=== PATIENT | female | born 1995 | race Caucasian/White ===

== ENCOUNTER 2017-03-26 17:18 | Emergency (ER) | payer MEDICAID ==
[2017-03-26 17:51] VITALS: BP 110/69
--- NOTE | 2017-03-26 17:58 | EDM.PDOC ---
<BridgesWander de la cruz M - Last Filed: 03/26/17 17:53> ED HPI GENERAL MEDICAL PROBLEM - General Chief Complaint: Chest Pain Stated Complaint: CHEST PAINS, [id number] Time Seen by Provider: 03/26/17 17:53 Source of Information: Reports: Patient History Limitations: Reports: No Limitations - History of Present Illness INITIAL COMMENTS - FREE TEXT/NARRATIVE: This 22 yo female patient reports to the ED with a 12 hour history of chest pain. The patient reports her pain started at about 0530 this morning and has continued all day. The patient reports she took some antacid medication and some Tylenol with no symptom relief. The patient reports her pain gets worse with deep breathing. The patient has not been seen in the clinic and has not had similar symptoms previously. The patient reports she did go to work at [employer] all day prior to coming to the ED. 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: Reports: Acetaminophen, Other Medication(s) Middle Chest Pain Score (Numeric/FACES): 5 - Related Data Allergies Allergy/AdvReac Type Severity Reaction Status Date / Time cats Allergy Hives Uncoded 03/26/17 17:34 harvest molds Allergy Cannot Uncoded 03/26/17 17:34 Remember seasonal Allergy Difficulty Uncoded 03/26/17 17:34 Breathing Home Meds: Home Meds Acetaminophen [Tylenol Extra Strength] 1,000 mg PO ASDIRECTED PRN 03/26/17 [ History] Albuterol [IJD: Ventolin HFA] 2 puff INH ASDIRECTED PRN 03/26/17 [History] Ipratropium/Albuterol Sulfate [Iprat-Albut 0.5-3(2.5) mg/3 ml] 3 ml NEB ASDIRECTED PRN 03/26/17 [History] Levothyroxine Sodium 300 mcg PO DAILY 03/26/17 [History] QUEtiapine Fumarate [Seroquel] 50 mg PO DAILY 03/26/17 [History] Sertraline HCl [Sertraline HCl] 150 mg PO DAILY 03/26/17 [History] traZODone 50 mg PO BEDTIME 03/26/17 [History] Past Medical History HEENT History: Reports: None Cardiovascular History: Reports: None Respiratory History: Reports: Asthma Gastrointestinal History: Reports: None Genitourinary History: Reports: None 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 Musculoskeletal History: Reports: None Neurological History: Reports: None Psychiatric History: Reports: Anxiety, Depression, Learning Disability Endocrine/Metabolic History: Reports: None Hematologic History: Reports: None Immunologic History: Reports: None Oncologic (Cancer) History: Reports: None Dermatologic History: Reports: None - Infectious Disease History Infectious Disease History: Reports: Chicken Pox - Past Surgical History Head Surgeries/Procedures: Reports: None Female Surgical History: Reports: None Social & Family History - Tobacco Use Smoking Status *Q: Current Every Day Smoker Years of Tobacco use: 1 Packs/Tins Daily: 0.5 Second Hand Smoke Exposure: No - Caffeine Use Caffeine Use: Reports: None - Recreational Drug Use Recreational Drug Use: No ED ROS GENERAL - Review of Systems Review Of Systems: ROS reveals no pertinent complaints other than HPI. ED EXAM, GENERAL - Physical Exam Exam: See Below Exam Limited By: No Limitations General Appearance: Alert, WD/WN, Mild Distress, Obese (morbid obesity) Eye Exam: Bilateral Eye: EOMI, Normal Inspection, PERRL Ears: Normal External Exam, Normal Canal, Hearing Grossly Normal, Normal TMs Nose: Normal Inspection, Normal Mucosa, No Blood Throat/Mouth: Normal Inspection, Normal Lips, Normal Teeth, Normal Gums, Normal Oropharynx, Normal Voice, No Airway Compromise Head: Atraumatic, Normocephalic Neck: Normal Inspection, Supple, Non-Tender, Full Range of Motion Respiratory/Chest: No Respiratory Distress, Lungs Clear, Normal Breath Sounds, No Accessory Muscle Use, Other (sternal chest pain) Cardiovascular: Normal Peripheral Pulses, Regular Rate, Rhythm, No Edema, No Gallop, No JVD, No Murmur, No Rub GI/Abdominal: Normal Bowel Sounds, Soft, Non-Tender, No Organomegaly, No Distention, No Abnormal Bruit, No Mass, Other (morbid obesity) (Female) Exam: Deferred Rectal (Female) Exam: Deferred Back Exam: Normal Inspection, Full Range of Motion, NT Extremities: Normal Inspection, Normal Range of Motion, Non-Tender, Normal Capillary Refill, No Pedal Edema Neurological: Alert, Oriented, CN II-XII Intact, Normal Cognition, Normal Gait, Normal Reflexes, No Motor/Sensory Deficits Psychiatric: Normal Affect, Normal Mood Skin Exam: Warm, Dry, Intact, Normal Color, No Rash Lymphatic: No Adenopathy Course - Vital Signs Last Recorded V/S: Last Vital Signs Temp 35.7 C 03/26/17 17:27 Pulse 198 H 03/26/17 17:50 Resp 16 03/26/17 17:50 BP 110/69 03/26/17 17:50 Pulse Ox 99 03/26/17 17:50 - Orders/Labs/Meds Orders: Active Orders 24 hr Category Date Time Status EKG Documentation Completion [RC] URGENT Care 03/26/17 17:52 Active Chest 1V Frontal [CR] Urgent Exams 03/26/17 17:53 Taken Labs: Laboratory Tests 03/26/17 03/26/17 Range/Units 18:00 18:00 WBC 10.1 H (5.0-10.0) 10^3/uL RBC 4.82 (4.2-5.4) 10^6/uL Hgb 9.0 L (12.0-16.0) g/dL Hct 31.4 L (37.0-47.0) % MCV 65.1 L (80-100) fL MCH 18.7 L (27.0-34.0) pg MCHC 28.7 L (33.0-35.0) g/dL Plt Count 395 (150-450) 10^3/uL Neut % (Auto) 71.0 (42.2-75.2) % Lymph % (Auto) 16.6 L (20.5-50.1) % Pope % (Auto) 8.3 H (2-8) % Eos % (Auto) 3.7 H (1.0-3.0) % Baso % (Auto) 0.4 (0.0-1.0) % Sodium 141 (135-145) mmol/L Potassium 3.6 (3.6-5.0) mmol/L Chloride 106 (101-111) mmol/L Carbon Dioxide 24.0 (21.0-31.0) mmol/L Anion Gap 14.6 BUN 14 (7-18) mg/dL Creatinine 0.9 (0.6-1.3) mg/dL Est Cr Clr Drug Dosing 89.72 mL/min Estimated GFR (MDRD) > 60 BUN/Creatinine Ratio 15.55 Glucose 106 H (74-105) mg/dL Calcium 8.8 (8.4-10.2) mg/dl Total Bilirubin 0.5 (0.2-1.0) mg/dL AST 17 (10-42) IU/L ALT 19 (10-60) IU/L Alkaline Phosphatase 93 (42-121) IU/L Troponin I < 0.02 (0.00-0.02) ng/ml Total Protein 7.6 (6.7-8.2) g/dl Albumin 3.8 (3.2-5.5) g/dl Globulin 3.8 Albumin/Globulin Ratio 1.00 Meds: Medications Discontinued Medications Generic Name Dose Route Start Last Admin Trade Name Freq PRN Reason Stop Dose Admin Al Hydroxide/Mg Hydroxide 30 ml 03/26/17 18:41 03/26/17 18:49 Gi Cocktail PO 03/26/17 18:42 30 ml ONETIME ONE Administration Departure - Departure Disposition: Home, Self-Care 01 Clinical Impression: Gastroesophageal reflux disease Qualifiers: Esophagitis presence: with esophagitis Qualified Code(s): K21.0 - Gastro- esophageal reflux disease with esophagitis Instructions: Food Choices for Gastroesophageal Reflux Disease, Adult Forms: ED Department Discharge Additional Instructions: 1) avoid spicy foods 2) follow up at clinic or recheck as needed rx given; zantac 150mg bid x 20 <Leeroy Allred - Last Filed: 03/26/17 19:07> Course - Re-Assessments/Exams Free Text/Narrative Re-Assessment/Exam: 03/26/17 19:06 re-exam; s/p GI cocktail=much better Departure - Departure Time of Disposition: 19:06 Condition: Good
[2017-03-26 18:23] LABS: CHLORIDE,CL 106 mmol/L (101-111); SODIUM,NA 141 mmol/L (135-145)
[2017-03-26] MEDS ORDERED: GI Cocktail Oral Solution 30 ML PO ONE (18:41)
--- NOTE | 2017-04-17 11:27 | EKG ---
03/26/2017 - HERMES WANG I reviewed the EKG and agree with the machine's reading. [facility] /[id number]
== END 2017-03-26 19:13 | disposition home or self-care (01) ==
LOC: DL.ED 17:18
DX: K21.0 Gastro-esophageal reflux disease with esophagitis (principal); F17.210 Nicotine dependence, cigarettes, uncomplicated; J45.909 Unspecified asthma, uncomplicated; Z79.899 Other long term (current) drug therapy
CPT/HCPCS: 36415; 71010; 80053; 84484; 85025; 93005; 99285; A9270

== ENCOUNTER 2017-04-16 13:39 | Emergency (ER) | payer MEDICAID ==
[2017-04-16] MEDS ORDERED: Sodium Chloride 0.9% 10 ML Syringe FLUSH PRN (14:24)
--- NOTE | 2017-04-16 14:24 | EDM.PDOC ---
ED HPI GENERAL MEDICAL PROBLEM - General Chief Complaint: General Stated Complaint: BY AMBULANCE Time Seen by Provider: 04/16/17 14:22 Source of Information: Reports: Patient History Limitations: Reports: No Limitations - History of Present Illness INITIAL COMMENTS - FREE TEXT/NARRATIVE: 22 yo female who presents c/o dizziness for the past 48 hours. States that she has been having nausea as well. No other complaints currently. Onset Date: 04/15/17 Duration: Constant Improves with: Reports: Immobilization Worsens with: Reports: Movement Associated Symptoms: Reports: Headaches, Nausea/Vomiting - Related Data Allergies Allergy/AdvReac Type Severity Reaction Status Date / Time cats Allergy Hives Uncoded 04/16/17 13:56 harvest molds Allergy Cannot Uncoded 04/16/17 13:56 Remember seasonal Allergy Difficulty Uncoded 04/16/17 13:56 Breathing Home Meds: Home Meds Acetaminophen [Tylenol Extra Strength] 1,000 mg PO ASDIRECTED PRN 03/26/17 [ History] Albuterol [IJD: Ventolin HFA] 2 puff INH ASDIRECTED PRN 03/26/17 [History] Ipratropium/Albuterol Sulfate [Iprat-Albut 0.5-3(2.5) mg/3 ml] 3 ml NEB ASDIRECTED PRN 03/26/17 [History] Levothyroxine Sodium 300 mcg PO DAILY 03/26/17 [History] QUEtiapine Fumarate [Seroquel] 50 mg PO DAILY 03/26/17 [History] Sertraline HCl [Sertraline HCl] 150 mg PO DAILY 03/26/17 [History] traZODone 50 mg PO BEDTIME 03/26/17 [History] Past Medical History HEENT History: Reports: None Cardiovascular History: Reports: None Respiratory History: Reports: Asthma Gastrointestinal History: Reports: GERD Genitourinary History: Reports: None 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 Musculoskeletal History: Reports: None Neurological History: Reports: None Psychiatric History: Reports: Anxiety, Depression, Learning Disability Endocrine/Metabolic History: Reports: None Hematologic History: Reports: None Immunologic History: Reports: None Oncologic (Cancer) History: Reports: None Dermatologic History: Reports: None - Infectious Disease History Infectious Disease History: Reports: Chicken Pox - Past Surgical History Head Surgeries/Procedures: Reports: None Female Surgical History: Reports: None Social & Family History - Tobacco Use Smoking Status *Q: Current Every Day Smoker Years of Tobacco use: 1 Packs/Tins Daily: 0.5 Second Hand Smoke Exposure: No - Caffeine Use Caffeine Use: Reports: Coffee - Recreational Drug Use Recreational Drug Use: No ED ROS GENERAL - Review of Systems Review Of Systems: ROS reveals no pertinent complaints other than HPI. ED EXAM, GENERAL - Physical Exam Exam: See Below Exam Limited By: No Limitations General Appearance: Alert, WD/WN, No Apparent Distress Eye Exam: Bilateral Eye: PERRL Ears: Normal External Exam, Normal Canal, Hearing Grossly Normal, Normal TMs Ear Exam: Bilateral Ear: Auricle Normal, Canal Normal, TM normal Head: Atraumatic, Normocephalic Neck: Normal Inspection, Supple, Non-Tender, Full Range of Motion Respiratory/Chest: No Respiratory Distress, Lungs Clear, Normal Breath Sounds, No Accessory Muscle Use, Chest Non-Tender Cardiovascular: Normal Peripheral Pulses, Regular Rate, Rhythm, No Edema, No Gallop, No JVD, No Murmur, No Rub GI/Abdominal: Normal Bowel Sounds, Soft, Non-Tender, No Organomegaly, No Distention, No Abnormal Bruit, No Mass Extremities: Normal Inspection, Normal Range of Motion, Non-Tender, Normal Capillary Refill, No Pedal Edema Neurological: Alert, Oriented, CN II-XII Intact, Normal Cognition, Normal Gait, Normal Reflexes, No Motor/Sensory Deficits Skin Exam: Warm, Dry, Intact, Normal Color, No Rash Course - Vital Signs Last Recorded V/S: Last Vital Signs Temp 96.4 F 04/16/17 13:50 Pulse 73 04/16/17 16:37 Resp 16 04/16/17 16:37 BP 102/52 L 04/16/17 16:37 Pulse Ox 95 04/16/17 16:37 - Orders/Labs/Meds Orders: Active Orders 24 hr Category Date Time Status EKG Documentation Completion [RC] STAT Care 04/16/17 14:26 Active Sodium Chloride 0.9% [Saline Flush] Med 04/16/17 14:24 Active 10 ml FLUSH ASDIRECTED PRN Saline Lock Insert [OM.PC] Stat Oth 04/16/17 14:24 Ordered Medication Orders Sodium Chloride (Saline Flush) 10 ml FLUSH ASDIRECTED PRN PRN Reason: Keep Vein Open Last Admin: 04/16/17 14:50 Dose: 10 ml Labs: Laboratory Tests 04/16/17 04/16/17 04/16/17 Range/Units 14:39 14:39 14:39 WBC 11.2 H (5.0-10.0) 10^3/uL RBC 5.22 (4.2-5.4) 10^6/uL Hgb 9.7 L (12.0-16.0) g/dL Hct 33.3 L (37.0-47.0) % MCV 63.8 L (80-100) fL MCH 18.6 L (27.0-34.0) pg MCHC 29.1 L (33.0-35.0) g/dL Plt Count 419 (150-450) 10^3/uL Neut % (Auto) 62.6 (42.2-75.2) % Lymph % (Auto) 15.4 L (20.5-50.1) % Payne % (Auto) 8.0 (2-8) % Eos % (Auto) 13.2 H (1.0-3.0) % Baso % (Auto) 0.8 (0.0-1.0) % Sodium 140 (135-145) mmol/L Potassium 3.9 (3.6-5.0) mmol/L Chloride 106 (101-111) mmol/L Carbon Dioxide 23.0 (21.0-31.0) mmol/L Anion Gap 14.9 BUN 14 (7-18) mg/dL Creatinine 0.7 (0.6-1.3) mg/dL Est Cr Clr Drug Dosing 115.36 mL/min Estimated GFR (MDRD) > 60 Glucose 96 (74-105) mg/dL Calcium 9.0 (8.4-10.2) mg/dl TSH, Ultra Sensitive 9.19 H (0.35-7.0) uIu/mL Urine Color (YELLOW) Urine Appearance (CLEAR) Urine pH (5.0-9.0) Ur Specific [place] (1.005-1.030) Urine Protein (NEGATIVE) Urine Glucose (UA) (NEGATIVE) Urine Ketones (NEGATIVE) Urine Occult Blood (NEGATIVE) Urine Nitrite (NEGATIVE) Urine Bilirubin (NEGATIVE) Urine Urobilinogen (0.2-1.0) mg/dL Ur Leukocyte Esterase (NEGATIVE) Urine RBC /HPF Urine WBC (0-5/HPF) /HPF Ur Epithelial Cells /HPF Urine Bacteria (0-FEW/HPF) /HPF Urine Mucus /LPF Urine HCG, Qual 04/16/17 04/16/17 Range/Units 15:58 15:58 WBC (5.0-10.0) 10^3/uL RBC (4.2-5.4) 10^6/uL Hgb (12.0-16.0) g/dL Hct (37.0-47.0) % MCV (80-100) fL MCH (27.0-34.0) pg MCHC (33.0-35.0) g/dL Plt Count (150-450) 10^3/uL Neut % (Auto) (42.2-75.2) % Lymph % (Auto) (20.5-50.1) % Payne % (Auto) (2-8) % Eos % (Auto) (1.0-3.0) % Baso % (Auto) (0.0-1.0) % Sodium (135-145) mmol/L Potassium (3.6-5.0) mmol/L Chloride (101-111) mmol/L Carbon Dioxide (21.0-31.0) mmol/L Anion Gap BUN (7-18) mg/dL Creatinine (0.6-1.3) mg/dL Est Cr Clr Drug Dosing mL/min Estimated GFR (MDRD) Glucose (74-105) mg/dL Calcium (8.4-10.2) mg/dl TSH, Ultra Sensitive (0.35-7.0) uIu/mL Urine Color Yellow (YELLOW) Urine Appearance Slightly cloudy (CLEAR) Urine pH 6.0 (5.0-9.0) Ur Specific [place] >= 1.030 (1.005-1.030) Urine Protein Trace H (NEGATIVE) Urine Glucose (UA) Negative (NEGATIVE) Urine Ketones Negative (NEGATIVE) Urine Occult Blood Trace-lysed H (NEGATIVE) Urine Nitrite Negative (NEGATIVE) Urine Bilirubin Negative (NEGATIVE) Urine Urobilinogen 0.2 (0.2-1.0) mg/dL Ur Leukocyte Esterase Negative (NEGATIVE) Urine RBC 0-5 /HPF Urine WBC 0-5 (0-5/HPF) /HPF Ur Epithelial Cells Many H /HPF Urine Bacteria Few (0-FEW/HPF) /HPF Urine Mucus Moderate H /LPF Urine HCG, Qual Negative Meds: Medications Generic Name Dose Route Start Last Admin Trade Name Freq PRN Reason Stop Dose Admin Sodium Chloride 10 ml 04/16/17 14:24 04/16/17 14:50 Saline Flush FLUSH 10 ml ASDIRECTED PRN Administration Keep Vein Open Discontinued Medications Generic Name Dose Route Start Last Admin Trade Name [place] PRN Reason Stop Dose Admin Sodium Chloride 1,000 mls @ 999 mls/hr 04/16/17 14:29 04/16/17 14:51 Normal Saline IV 04/16/17 15:29 999 mls/hr .BOLUS ONE Administration Meclizine HCl 12.5 mg 04/16/17 14:29 04/16/17 14:50 Antivert PO 04/16/17 14:30 12.5 mg ONETIME ONE Administration - Re-Assessments/Exams Free Text/Narrative Re-Assessment/Exam: 04/16/17 16:44 pt states that she feels better. Will dc home Departure - Departure Time of Disposition: 16:45 Disposition: DC[facility] 05 Condition: Good Clinical Impression: Vertigo - Discharge Information Instructions: Vertigo Forms: ED Department Discharge Additional Instructions: Return for any worsening symptoms. - My Orders Last 24 Hours: My Active Orders 04/16/17 14:24 Sodium Chloride 0.9% [Saline Flush] 10 ml FLUSH ASDIRECTED PRN Saline Lock Insert [OM.PC] Stat 04/16/17 14:26 EKG Documentation Completion [RC] STAT - Assessment/Plan Last 24 Hours: My Active Orders 04/16/17 14:24 Sodium Chloride 0.9% [Saline Flush] 10 ml FLUSH ASDIRECTED PRN Saline Lock Insert [OM.PC] Stat 04/16/17 14:26 EKG Documentation Completion [RC] STAT
[2017-04-16] MEDS ORDERED: Sodium Chloride 0.9% 1,000 ML IV ONE (14:29)
[2017-04-16] MEDS ORDERED: Meclizine 12.5 MG Tab PO ONE (14:29)
[2017-04-16 15:09] LABS: CHLORIDE,CL 106 mmol/L (101-111); SODIUM,NA 140 mmol/L (135-145)
[2017-04-16 16:38] VITALS: BP 102/52
--- NOTE | 2017-04-17 17:57 | EKG ---
04/16/2017 - HERMES WANG I reviewed the EKG and agree with the machine's reading. [facility] /[id number]
== END 2017-04-16 16:55 | disposition home or self-care (01) ==
LOC: DL.ED 13:39
DX: R42 Dizziness and giddiness (principal); J45.909 Unspecified asthma, uncomplicated; F17.210 Nicotine dependence, cigarettes, uncomplicated; K21.9 Gastro-esophageal reflux disease without esophagitis; F41.9 Anxiety disorder, unspecified; F32.9 Major depressive disorder, single episode, unspecified; Z79.899 Other long term (current) drug therapy; Z91.09 Other allergy status, other than to drugs and biological substances
CPT/HCPCS: 36415; 80048; 81001; 81025; 84443; 85025; 93005; 96360; 99284; A9270; J7030; J7050

== ENCOUNTER 2017-05-24 02:09 | Emergency (ER) | payer MEDICAID ==
[2017-05-24] MEDS ORDERED: Albuterol/Ipratropium 3.0-0.5 MG/3 ML Neb Soln NEB ONE (02:22)
[2017-05-24] MEDS ORDERED: methylPREDNISolone Sodium Succinate 125 MG/2 ML SDV IM ONE (02:23)
[2017-05-24] MEDS ORDERED: Codeine/Promethazine 10-6.25 MG/5 ML Syrup 5 ML UD Cup PO ONE (02:30)
--- NOTE | 2017-05-24 02:35 | EDM.PDOC ---
ED HPI GENERAL MEDICAL PROBLEM - General Chief Complaint: Respiratory Problem Stated Complaint: COUGH Time Seen by Provider: 05/24/17 02:31 Source of Information: Reports: Patient History Limitations: Reports: No Limitations - History of Present Illness INITIAL COMMENTS - FREE TEXT/NARRATIVE: 2 weeks h/o worsening cough gives h/o asthma uses nebs at home but not working, been coughing till almost vomits. Chest Pain Score (Numeric/FACES): 3 - Related Data Allergies Allergy/AdvReac Type Severity Reaction Status Date / Time latex Allergy Hives Verified 05/24/17 02:18 cats Allergy Hives Uncoded 05/24/17 02:18 harvest molds Allergy Cannot Uncoded 05/24/17 02:18 Remember seasonal Allergy Difficulty Uncoded 05/24/17 02:18 Breathing Home Meds: Home Meds Acetaminophen [Tylenol Extra Strength] 1,000 mg PO ASDIRECTED PRN 03/26/17 [ History] Albuterol [IJD: Ventolin HFA] 2 puff INH ASDIRECTED PRN 03/26/17 [History] Ipratropium/Albuterol Sulfate [Iprat-Albut 0.5-3(2.5) mg/3 ml] 3 ml NEB ASDIRECTED PRN 03/26/17 [History] Levothyroxine Sodium 300 mcg PO DAILY 03/26/17 [History] QUEtiapine Fumarate [Seroquel] 50 mg PO DAILY 03/26/17 [History] Sertraline HCl [Sertraline HCl] 150 mg PO DAILY 03/26/17 [History] traZODone 50 mg PO BEDTIME 03/26/17 [History] Past Medical History - Past Health History Medical/Surgical History: Denies Medical/Surgical History HEENT History: Reports: None Cardiovascular History: Reports: None Respiratory History: Reports: Asthma Gastrointestinal History: Reports: GERD Genitourinary History: Reports: None 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 Musculoskeletal History: Reports: None Neurological History: Reports: None Psychiatric History: Reports: Anxiety, Depression, Learning Disability Endocrine/Metabolic History: Reports: None Hematologic History: Reports: None Immunologic History: Reports: None Oncologic (Cancer) History: Reports: None Dermatologic History: Reports: None - Infectious Disease History Infectious Disease History: Reports: Chicken Pox - Past Surgical History Head Surgeries/Procedures: Reports: None Female Surgical History: Reports: None Social & Family History - Family History Family Medical History: Noncontributory - Tobacco Use Smoking Status *Q: Former Smoker Years of Tobacco use: 1 Packs/Tins Daily: 0.5 Used Tobacco, but Quit: Yes Month Tobacco Last Used: October Second Hand Smoke Exposure: No - Caffeine Use Caffeine Use: Reports: Soda - Recreational Drug Use Recreational Drug Use: No ED ROS GENERAL - Review of Systems Review Of Systems: ROS reveals no pertinent complaints other than HPI. ED EXAM, GENERAL - Physical Exam Exam: See Below Exam Limited By: No Limitations General Appearance: Alert, WD/WN, Mild Distress, Other (cough spasms) Ears: Hearing Grossly Normal Throat/Mouth: Normal Voice, No Airway Compromise Head: Atraumatic Neck: Non-Tender, Full Range of Motion Respiratory/Chest: No Respiratory Distress, No Accessory Muscle Use, Rhonchi, Wheezing. No: Decreased Breath Sounds, Retractions Cardiovascular: Regular Rate, Rhythm GI/Abdominal: Soft, Non-Tender Neurological: Alert, Oriented, Normal Cognition, Normal Gait, No Motor/Sensory Deficits Psychiatric: Normal Affect, Normal Mood Skin Exam: Warm, Dry, Normal Color Lymphatic: No Adenopathy Course - Vital Signs Last Recorded V/S: Last Vital Signs Temp 35.5 C 05/24/17 02:15 Pulse 93 05/24/17 02:15 Resp 20 05/24/17 02:15 BP 119/71 05/24/17 02:15 Pulse Ox 95 05/24/17 02:28 - Orders/Labs/Meds Orders: Active Orders 24 hr Category Date Time Status RT Aerosol Therapy [RC] ASDIRECTED Care 05/24/17 02:22 Active Meds: Medications Discontinued Medications Generic Name Dose Route Start Last Admin Trade Name Amita PRN Reason Stop Dose Admin Albuterol/Ipratropium 3 ml 05/24/17 02:22 05/24/17 02:28 Duoneb 3.0-0.5 Mg/3 Ml NEB 05/24/17 02:23 3 ml ONETIME ONE Administration Methylprednisolone Sodium Succinate 125 mg 05/24/17 02:23 05/24/17 02:28 Solu-Medrol IM 05/24/17 02:24 125 mg ONETIME ONE Administration Promethazine HCl/Codeine 5 ml 05/24/17 02:30 05/24/17 02:33 Phenergan With Codeine PO 08/20/17 02:31 5 ml ONETIME ONE Administration - Re-Assessments/Exams Free Text/Narrative Re-Assessment/Exam: 05/24/17 03:01 re-exam; s/p duoneb + IM solumedrol + phenergan codeine = much better now wants to go home to sleep. Departure - Departure Time of Disposition: 03:01 Disposition: Home, Self-Care 01 Condition: Good Clinical Impression: Bronchospasm with bronchitis, acute - Discharge Information Instructions: Acute Bronchitis, [id number] Forms: ED Department Discharge Additional Instructions: 1) continue nebs 2) take tylenol or motrin for fever 3) follow up at clinic or recheck as needed rx given; medrol dospak phenergan codeine syrup qid prn x 4oz - My Orders Last 24 Hours: My Active Orders 05/24/17 02:22 RT Aerosol Therapy [RC] ASDIRECTED - Assessment/Plan Last 24 Hours: My Active Orders 05/24/17 02:22 RT Aerosol Therapy [RC] ASDIRECTED
[2017-05-24 03:26] VITALS: BP 119/71
== END 2017-05-24 03:10 | disposition home or self-care (01) ==
LOC: DL.ED 02:09
DX: J20.9 Acute bronchitis, unspecified (principal); J45.909 Unspecified asthma, uncomplicated; K21.9 Gastro-esophageal reflux disease without esophagitis; F41.9 Anxiety disorder, unspecified; F32.9 Major depressive disorder, single episode, unspecified; Z87.891 Personal history of nicotine dependence; Z91.040 Latex allergy status; Z91.09 Other allergy status, other than to drugs and biological substances; Z79.899 Other long term (current) drug therapy
CPT/HCPCS: 94640; 96372; 99283; A9270; J2930

== ENCOUNTER 2017-06-28 10:08 | Emergency (ER) | payer MEDICAID ==
[2017-06-28 10:20] VITALS: BP 128/76
[2017-06-28] MEDS ORDERED: Albuterol/Ipratropium 3.0-0.5 MG/3 ML Neb Soln NEB ONE (10:37)
[2017-06-28] MEDS ORDERED: methylPREDNISolone Sodium Succinate 125 MG/2 ML SDV IM ONE (10:37)
--- NOTE | 2017-06-28 10:42 | EDM.PDOC ---
ED HPI GENERAL MEDICAL PROBLEM - General Chief Complaint: Respiratory Problem Stated Complaint: [id number] CHEST PAIN COUGHING WHEEZING Time Seen by Provider: 06/28/17 10:38 Source of Information: Reports: Patient History Limitations: Reports: No Limitations - History of Present Illness INITIAL COMMENTS - FREE TEXT/NARRATIVE: 22 yo female presents with 4 days of non productive cough and shortness of breath. States that she was diagnosed with Bronchitis 3 weeks ago and it cleared and now she is having the same symptoms. States that she has taken her rescue inhaler with no relief. No other complaints. Onset Date: 06/25/17 Duration: Constant, Getting Worse Location: Reports: Chest Quality: Reports: Same as Previous Episode Severity: Mild Improves with: Reports: None Worsens with: Reports: Breathing, Movement Associated Symptoms: Reports: Cough Treatments STOCK CLERK: Reports: Breathing Treatments Chest Pain Score (Numeric/FACES): 4 - Related Data Allergies Allergy/AdvReac Type Severity Reaction Status Date / Time latex Allergy Hives Verified 06/28/17 10:20 cats Allergy Hives Uncoded 06/28/17 10:20 harvest molds Allergy Cannot Uncoded 06/28/17 10:20 Remember seasonal Allergy Difficulty Uncoded 06/28/17 10:20 Breathing Home Meds: Home Meds Acetaminophen [Tylenol Extra Strength] 1,000 mg PO ASDIRECTED PRN 03/26/17 [ History] Albuterol [IJD: Ventolin HFA] 2 puff INH ASDIRECTED PRN 03/26/17 [History] Ipratropium/Albuterol Sulfate [Iprat-Albut 0.5-3(2.5) mg/3 ml] 3 ml NEB ASDIRECTED PRN 03/26/17 [History] Levothyroxine Sodium 300 mcg PO DAILY 03/26/17 [History] Amoxicillin [Amoxicillin] 500 mg PO QID 06/28/17 [History] Past Medical History - Past Health History Medical/Surgical History: Denies Medical/Surgical History HEENT History: Reports: None Cardiovascular History: Reports: None Respiratory History: Reports: Asthma Gastrointestinal History: Reports: GERD Genitourinary History: Reports: None PEDIATRIC PHYSICAL THERAPIST History: Reports: None Musculoskeletal History: Reports: None Neurological History: Reports: None Psychiatric History: Reports: Anxiety, Depression, Learning Disability Endocrine/Metabolic History: Reports: None Hematologic History: Reports: None Immunologic History: Reports: None Oncologic (Cancer) History: Reports: None Dermatologic History: Reports: None - Infectious Disease History Infectious Disease History: Reports: Chicken Pox - Past Surgical History Head Surgeries/Procedures: Reports: None Female Surgical History: Reports: None Social & Family History - Family History Family Medical History: Noncontributory - Tobacco Use Smoking Status *Q: Former Smoker Years of Tobacco use: 1 Packs/Tins Daily: 0.5 Used Tobacco, but Quit: Yes Month Tobacco Last Used: march Second Hand Smoke Exposure: No - Caffeine Use Caffeine Use: Reports: None - Recreational Drug Use Recreational Drug Use: No ED ROS GENERAL - Review of Systems Review Of Systems: ROS reveals no pertinent complaints other than HPI. ED EXAM, GENERAL - Physical Exam Exam: See Below Exam Limited By: No Limitations General Appearance: Alert, WD/WN, No Apparent Distress Eye Exam: Bilateral Eye: Normal Inspection, PERRL Ears: Normal External Exam, Normal Canal, Hearing Grossly Normal, Normal TMs Ear Exam: Bilateral Ear: Auricle Normal, Canal Normal, TM normal Nose: Normal Inspection, Normal Mucosa, No Blood Throat/Mouth: Normal Inspection, Normal Lips, Normal Teeth, Normal Gums, Normal Voice, No Airway Compromise, Inflammation Neck: Lymphadenopathy (L) Respiratory/Chest: No Respiratory Distress, No Accessory Muscle Use, Chest Non- Tender, Wheezing Cardiovascular: Normal Peripheral Pulses, Regular Rate, Rhythm, No Edema, No Gallop, No JVD, No Murmur, No Rub Neurological: Alert, Oriented, CN II-XII Intact, Normal Cognition, Normal Gait, No Motor/Sensory Deficits Skin Exam: Warm, Dry, Intact, Normal Color, No Rash Course - Vital Signs Last Recorded V/S: Last Vital Signs Temp 96.2 F 06/28/17 10:15 Pulse 82 06/28/17 11:11 Resp 16 06/28/17 10:15 BP 128/76 06/28/17 10:15 Pulse Ox 98 06/28/17 10:15 - Orders/Labs/Meds Orders: Active Orders 24 hr Category Date Time Status RT Aerosol Therapy [RC] ASDIRECTED Care 06/28/17 10:38 Active Chest 2V [CR] Stat Exams 06/28/17 10:37 Taken CULTURE STREP A CONFIRMATION [RM] Stat Lab 06/28/17 12:07 Results STREP SCRN A RAPID W CULT CONF [RM] Stat Lab 06/28/17 12:07 Results Meds: Medications Discontinued Medications Generic Name Dose Route Start Last Admin Trade Name Amita PRN Reason Stop Dose Admin Albuterol/Ipratropium 3 ml 06/28/17 10:37 06/28/17 11:08 Duoneb 3.0-0.5 Mg/3 Ml NEB 06/28/17 10:38 3 ml ONETIME ONE Administration Methylprednisolone Sodium Succinate 125 mg 06/28/17 10:37 06/28/17 11:07 Solu-Medrol IM 06/28/17 10:38 125 mg ONETIME ONE Administration - Re-Assessments/Exams Free Text/Narrative Re-Assessment/Exam: 06/28/17 11:36 wheezing decreased, awaiting CXR Departure - Departure Time of Disposition: 13:17 Disposition: Home, Self-Care 01 Condition: Good Clinical Impression: Bronchospasm with bronchitis, acute - Discharge Information Instructions: Acute Bronchitis, [id number] Forms: ED Department Discharge Additional Instructions: Take medications as directed. follow up with your PCP in 4-5 days to evaluate need for technician terminal and repeater steroid therapy. Return for worsening symptoms. Care Plan Goals: Meds: Pulmicort 90 albuterol inhaler 90 dextromorphan 10 ml - My Orders Last 24 Hours: My Active Orders 06/28/17 10:37 Chest 2V [CR] Stat 06/28/17 10:38 RT Aerosol Therapy [RC] ASDIRECTED 06/28/17 12:07 CULTURE STREP A CONFIRMATION [RM] Stat STREP SCRN A RAPID W CULT CONF [RM] Stat - Assessment/Plan Last 24 Hours: My Active Orders 06/28/17 10:37 Chest 2V [CR] Stat 06/28/17 10:38 RT Aerosol Therapy [RC] ASDIRECTED 06/28/17 12:07 CULTURE STREP A CONFIRMATION [RM] Stat STREP SCRN A RAPID W CULT CONF [RM] Stat
== END 2017-06-28 13:26 | disposition home or self-care (01) ==
LOC: DL.ED 10:08
DX: J20.9 Acute bronchitis, unspecified (principal); J45.909 Unspecified asthma, uncomplicated; K21.9 Gastro-esophageal reflux disease without esophagitis; F32.9 Major depressive disorder, single episode, unspecified; Z87.891 Personal history of nicotine dependence; Z79.899 Other long term (current) drug therapy; Z91.040 Latex allergy status; Z91.048 Other nonmedicinal substance allergy status
CPT/HCPCS: 71020; 87081; 87430; 87804; 94640; 96372; 99285; J2930

== ENCOUNTER 2017-10-02 22:17 | Emergency (ER) | payer MEDICAID ==
[2017-10-02 23:00] VITALS: BP 93/69
[2017-10-02 23:22] LABS: ANION GAP 11.3; CHLORIDE,CL 104 mmol/L (101-111); SODIUM,NA 137 mmol/L (135-145)
[2017-10-02] MEDS ORDERED: Albuterol/Ipratropium 3.0-0.5 MG/3 ML Neb Soln NEB ONE (23:38)
--- NOTE | 2017-10-02 23:44 | EDM.PDOC ---
ED HPI GENERAL MEDICAL PROBLEM - General Chief Complaint: Head Injury Stated Complaint: HEAD IJURY [id number] Time Seen by Provider: 10/02/17 23:33 Source of Information: Reports: Patient, Family History Limitations: Reports: No Limitations - History of Present Illness INITIAL COMMENTS - FREE TEXT/NARRATIVE: pt states felt really hot in face and went to bathroom and woke up on floor. denies prior h/o, hadn't been feeling well with sob and asthma acting up, been busy today helping move, not eaten earlier. family states pt been helping to move but wasn't doing any heavy lifting, she went home and later called told them what happened. found pt alert standing by the door c/o feeling really hot and her cheeks were deeply red with face looking pace. Right Headache Pain Score (Numeric/FACES): 4 - Related Data Allergies Allergy/AdvReac Type Severity Reaction Status Date / Time latex Allergy Hives Verified 10/02/17 22:35 cats Allergy Hives Uncoded 10/02/17 23:06 harvest molds Allergy Cannot Uncoded 10/02/17 23:06 Remember seasonal Allergy Difficulty Uncoded 10/02/17 23:06 Breathing Home Meds: Home Meds Acetaminophen [Tylenol Extra Strength] 1,000 mg PO ASDIRECTED PRN 03/26/17 [ History] Albuterol [IJD: Ventolin HFA] 2 puff INH ASDIRECTED PRN 03/26/17 [History] Ipratropium/Albuterol Sulfate [Iprat-Albut 0.5-3(2.5) mg/3 ml] 3 ml NEB ASDIRECTED PRN 03/26/17 [History] Levothyroxine Sodium 300 mcg PO DAILY 03/26/17 [History] Past Medical History - Past Health History Medical/Surgical History: Denies Medical/Surgical History HEENT History: Reports: None Cardiovascular History: Reports: None Respiratory History: Reports: Asthma Gastrointestinal History: Reports: GERD Genitourinary History: Reports: None 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 Musculoskeletal History: Reports: None Neurological History: Reports: None Psychiatric History: Reports: Anxiety, Depression, Learning Disability Endocrine/Metabolic History: Reports: None, Hypothyroidism Hematologic History: Reports: None Immunologic History: Reports: None Oncologic (Cancer) History: Reports: None Dermatologic History: Reports: None - Infectious Disease History Infectious Disease History: Reports: Chicken Pox - Past Surgical History Head Surgeries/Procedures: Reports: None Female Surgical History: Reports: None Social & Family History - Family History Family Medical History: Noncontributory - Tobacco Use Smoking Status *Q: Former Smoker Years of Tobacco use: 1 Packs/Tins Daily: 0.5 Used Tobacco, but Quit: Yes Month Tobacco Last Used: 06 Second Hand Smoke Exposure: No - Caffeine Use Caffeine Use: Reports: Coffee, Soda - Recreational Drug Use Recreational Drug Use: No ED ROS GENERAL - Review of Systems Review Of Systems: ROS reveals no pertinent complaints other than HPI. ED EXAM, HEAD INJURY - Physical Exam Exam: See Below Exam Limited By: No Limitations General Appearance: Alert, WD/WN, Mild Distress, Other (distraught) Head: Scalp Tenderness, Other (right parietal). No: Chandra's Sign, Raccoon Eyes Nexus Criteria: No: Posterior, Midline Cervical Tenderness, Evidence of Intoxication, Altered Level of Consciousness, Focal Neurological Deficit, Painful Distraction Injuries Eyes: Bilateral Eye: PERRL (pupils ER @ 4mm) Ears: Hearing Grossly Normal Throat/Mouth: Normal Voice, No Airway Compromise Neck: Non-Tender, Full Range of Motion Respiratory: No Respiratory Distress Cardiovascular: Regular Rate, Rhythm GI/Abdominal Exam: Soft, Non-Tender Neurologic: No Motor/Sensory Deficits, Alert, Normal Mood/Affect, Oriented x 3 Skin: Normal Color, Warm/Dry - Tripp Coma Score Best Eye Response (Mary): (4) Open Spontaneously Best Verbal Response (Mary): (5) Oriented Best Motor Response (Mary): (6) Obeys Commands Tripp Total: 15 Course - Vital Signs Last Recorded V/S: Last Vital Signs Temp 36.9 C 10/02/17 22:59 Pulse 108 H 10/02/17 22:59 Resp 20 10/02/17 22:59 BP 93/69 10/02/17 22:59 Pulse Ox 95 10/02/17 22:59 - Orders/Labs/Meds Orders: Active Orders 24 hr Category Date Time Status RT Aerosol Therapy [RC] ASDIRECTED Care 10/02/17 23:38 Active Chest 2V [CR] Urgent Exams 10/02/17 23:38 Taken Head wo Cont [CT] Urgent Exams 10/02/17 23:31 Taken Azithromycin [Zithromax] Med 10/03/17 00:32 Once 500 mg PO ONETIME ONE Labs: Laboratory Tests 10/02/17 10/02/17 10/02/17 Range/Units 22:55 22:55 22:55 WBC 12.5 H (5.0-10.0) 10^3/uL RBC 4.81 (4.2-5.4) 10^6/uL Hgb 8.8 L (12.0-16.0) g/dL Hct 30.6 L (37.0-47.0) % MCV 63.6 L (80-100) fL MCH 18.3 L (27.0-34.0) pg MCHC 28.8 L (33.0-35.0) g/dL Plt Count 496 H D (150-450) 10^3/uL Neut % (Auto) 66.2 (42.2-75.2) % Lymph % (Auto) 21.1 (20.5-50.1) % Gage % (Auto) 7.4 (2-8) % Eos % (Auto) 4.5 H (1.0-3.0) % Baso % (Auto) 0.8 (0.0-1.0) % Sodium 137 (135-145) mmol/L Potassium 3.3 L (3.6-5.0) mmol/L Chloride 104 (101-111) mmol/L Carbon Dioxide 25.0 (21.0-31.0) mmol/L Anion Gap 11.3 BUN 17 (7-18) mg/dL Creatinine 0.9 (0.6-1.3) mg/dL Est Cr Clr Drug Dosing 89.72 mL/min Estimated GFR (MDRD) > 60 BUN/Creatinine Ratio 18.88 Glucose 94 (74-105) mg/dL Calcium 8.7 (8.4-10.2) mg/dl Total Bilirubin 0.7 (0.2-1.0) mg/dL AST 17 (10-42) IU/L ALT 14 (10-60) IU/L Alkaline Phosphatase 85 (42-121) IU/L Total Protein 7.9 (6.7-8.2) g/dl Albumin 3.9 (3.2-5.5) g/dl Globulin 4.0 Albumin/Globulin Ratio 0.98 Urine Color (YELLOW) Urine Appearance (CLEAR) Urine pH (5.0-9.0) Ur Specific [place] (1.005-1.030) Urine Protein (NEGATIVE) Urine Glucose (UA) (NEGATIVE) Urine Ketones (NEGATIVE) Urine Occult Blood (NEGATIVE) Urine Nitrite (NEGATIVE) Urine Bilirubin (NEGATIVE) Urine Urobilinogen (0.2-1.0) mg/dL Ur Leukocyte Esterase (NEGATIVE) Urine HCG, Qual Urine Opiates Screen (NEGATIVE) Ur Oxycodone Screen (NEGATIVE) Urine Methadone Screen (NEGATIVE) Ur Barbiturates Screen (NEGATIVE) U Tricyclic Antidepress (NEGATIVE) Ur Phencyclidine Scrn (NEGATIVE) Ur Amphetamine Screen (NEGATIVE) U Methamphetamines Scrn (NEGATIVE) Urine MDMA Screen (NEGATIVE) U Benzodiazepines Scrn (NEGATIVE) Urine Cocaine Screen (NEGATIVE) U Marijuana (THC) Screen (NEGATIVE) Ethyl Alcohol < 5 mg/dL 10/02/17 10/02/17 10/02/17 Range/Units 23:10 23:10 23:10 WBC (5.0-10.0) 10^3/uL RBC (4.2-5.4) 10^6/uL Hgb (12.0-16.0) g/dL Hct (37.0-47.0) % MCV (80-100) fL MCH (27.0-34.0) pg MCHC (33.0-35.0) g/dL Plt Count (150-450) 10^3/uL Neut % (Auto) (42.2-75.2) % Lymph % (Auto) (20.5-50.1) % Gage % (Auto) (2-8) % Eos % (Auto) (1.0-3.0) % Baso % (Auto) (0.0-1.0) % Sodium (135-145) mmol/L Potassium (3.6-5.0) mmol/L Chloride (101-111) mmol/L Carbon Dioxide (21.0-31.0) mmol/L Anion Gap BUN (7-18) mg/dL Creatinine (0.6-1.3) mg/dL Est Cr Clr Drug Dosing mL/min Estimated GFR (MDRD) BUN/Creatinine Ratio Glucose (74-105) mg/dL Calcium (8.4-10.2) mg/dl Total Bilirubin (0.2-1.0) mg/dL AST (10-42) IU/L ALT (10-60) IU/L Alkaline Phosphatase (42-121) IU/L Total Protein (6.7-8.2) g/dl Albumin (3.2-5.5) g/dl Globulin Albumin/Globulin Ratio Urine Color Yellow (YELLOW) Urine Appearance Slightly cloudy (CLEAR) Urine pH 5.0 (5.0-9.0) Ur Specific [place] 1.020 (1.005-1.030) Urine Protein Negative (NEGATIVE) Urine Glucose (UA) Negative (NEGATIVE) Urine Ketones Negative (NEGATIVE) Urine Occult Blood Small H (NEGATIVE) Urine Nitrite Negative (NEGATIVE) Urine Bilirubin Negative (NEGATIVE) Urine Urobilinogen 0.2 (0.2-1.0) mg/dL Ur Leukocyte Esterase Small H (NEGATIVE) Urine HCG, Qual Negative Urine Opiates Screen Negative (NEGATIVE) Ur Oxycodone Screen Negative (NEGATIVE) Urine Methadone Screen Negative (NEGATIVE) Ur Barbiturates Screen Negative (NEGATIVE) U Tricyclic Antidepress Negative (NEGATIVE) Ur Phencyclidine Scrn Negative (NEGATIVE) Ur Amphetamine Screen Negative (NEGATIVE) U Methamphetamines Scrn Negative (NEGATIVE) Urine MDMA Screen Negative (NEGATIVE) U Benzodiazepines Scrn Negative (NEGATIVE) Urine Cocaine Screen Negative (NEGATIVE) U Marijuana (THC) Screen Negative (NEGATIVE) Ethyl Alcohol mg/dL Meds: Medications Discontinued Medications Generic Name Dose Route Start Last Admin Trade Name Freq PRN Reason Stop Dose Admin Albuterol/Ipratropium 3 ml 10/02/17 23:38 10/03/17 00:12 Duoneb 3.0-0.5 Mg/3 Ml NEB 10/02/17 23:39 3 ml ONETIME ONE Administration - Re-Assessments/Exams Free Text/Narrative Re-Assessment/Exam: 10/03/17 00:34 results discussed with pt & family Departure - Departure Time of Disposition: 00:34 Disposition: Home, Self-Care 01 Condition: Good Clinical Impression: Concussion with less than 1 hour loss of consciousness, Bronchospasm with bronchitis, acute - Discharge Information Instructions: Head Injury, Adult, [id number] Forms: ED Department Discharge Additional Instructions: 1) rest as much as possible 2) take nebs 3 times daily for breathing 3) see clinic for anemia problem 4) return if there is any change or concern rx given; [id number] - My Orders Last 24 Hours: My Active Orders 10/02/17 23:31 Head wo Cont [CT] Urgent 10/02/17 23:38 RT Aerosol Therapy [RC] ASDIRECTED Chest 2V [CR] Urgent 10/03/17 00:32 Azithromycin [Zithromax] 500 mg PO ONETIME ONE - Assessment/Plan Last 24 Hours: My Active Orders 10/02/17 23:31 Head wo Cont [CT] Urgent 10/02/17 23:38 RT Aerosol Therapy [RC] ASDIRECTED Chest 2V [CR] Urgent 10/03/17 00:32 Azithromycin [Zithromax] 500 mg PO ONETIME ONE
[2017-10-03] MEDS ORDERED: Azithromycin 250 MG Tab PO ONE (00:32)
== END 2017-10-03 00:57 | disposition home or self-care (01) ==
LOC: DL.ED 22:17
DX: S06.0X9A Concussion with loss of consciousness of unspecified duration, initial encounter (principal); J20.9 Acute bronchitis, unspecified; Z91.040 Latex allergy status; Z91.09 Other allergy status, other than to drugs and biological substances; Z79.899 Other long term (current) drug therapy; Z87.891 Personal history of nicotine dependence; X58.XXXA Exposure to other specified factors, initial encounter
CPT/HCPCS: 36415; 70450; 71020; 80053; 80305; 81003; 81025; 85025; 99284; A9270; G0480

== ENCOUNTER 2017-12-19 21:38 | Emergency (ER) | payer MEDICAID ==
[2017-12-19] MEDS ORDERED: hydrOXYzine HCl 25 MG Tab PO ONE (21:50)
--- NOTE | 2017-12-19 22:00 | EDM.PDOC ---
ED HPI GENERAL MEDICAL PROBLEM - General Chief Complaint: Respiratory Problem Stated Complaint: MARCO, [id number] Time Seen by Provider: 12/19/17 21:53 Source of Information: Reports: Patient History Limitations: Reports: No Limitations - History of Present Illness INITIAL COMMENTS - FREE TEXT/NARRATIVE: states has 7 cousins over visiting in her 1 bedroom appt and feels like she is having a anxiety attack which she had before. also has asthma which feels similar. did try using her inhalers today but not helping. Chest Pain Score (Numeric/FACES): 4 - Related Data Allergies Allergy/AdvReac Type Severity Reaction Status Date / Time latex Allergy Hives Verified 12/19/17 21:42 harvest molds Allergy Cannot Uncoded 12/19/17 21:42 Remember seasonal Allergy Difficulty Uncoded 12/19/17 21:42 Breathing Home Meds: Home Meds Acetaminophen [Tylenol Extra Strength] 1,000 mg PO ASDIRECTED PRN 03/26/17 [ History] Albuterol [IJD: Ventolin HFA] 2 puff INH ASDIRECTED PRN 03/26/17 [History] Ipratropium/Albuterol Sulfate [Iprat-Albut 0.5-3(2.5) mg/3 ml] 3 ml NEB ASDIRECTED PRN 03/26/17 [History] Levothyroxine Sodium 375 mcg PO DAILY 03/26/17 [History] Past Medical History - Past Health History Medical/Surgical History: Denies Medical/Surgical History HEENT History: Reports: None Cardiovascular History: Reports: None Respiratory History: Reports: Asthma Gastrointestinal History: Reports: GERD Genitourinary History: Reports: None 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 Musculoskeletal History: Reports: None Neurological History: Reports: None Psychiatric History: Reports: Anxiety, Depression, Learning Disability Endocrine/Metabolic History: Reports: None, Hypothyroidism Hematologic History: Reports: None Immunologic History: Reports: None Oncologic (Cancer) History: Reports: None Dermatologic History: Reports: None - Infectious Disease History Infectious Disease History: Reports: Chicken Pox - Past Surgical History Head Surgeries/Procedures: Reports: None Female Surgical History: Reports: None Social & Family History - Family History Family Medical History: Noncontributory - Tobacco Use Smoking Status *Q: Light Tobacco Smoker Years of Tobacco use: 2 Packs/Tins Daily: 0 Used Tobacco, but Quit: Yes Month/Year Tobacco Last Used: 06 Tobacco Use Comment: started nicotine lozenges today Second Hand Smoke Exposure: No - Caffeine Use Caffeine Use: Reports: Coffee, Soda - Recreational Drug Use Recreational Drug Use: No ED ROS GENERAL - Review of Systems Review Of Systems: ROS reveals no pertinent complaints other than HPI. ED EXAM, GENERAL - Physical Exam Exam: See Below Exam Limited By: No Limitations General Appearance: Alert, WD/WN, Anxious, Mild Distress Ears: Hearing Grossly Normal Throat/Mouth: Normal Voice, No Airway Compromise Head: Atraumatic Neck: Non-Tender, Full Range of Motion Respiratory/Chest: No Respiratory Distress, Lungs Clear, Normal Breath Sounds, No Accessory Muscle Use Cardiovascular: Regular Rate, Rhythm GI/Abdominal: Soft, Non-Tender Neurological: Alert, Oriented, Normal Cognition, Normal Gait, No Motor/Sensory Deficits Psychiatric: Anxious Skin Exam: Warm, Dry, Normal Color Lymphatic: No Adenopathy Course - Vital Signs Last Recorded V/S: Last Vital Signs Temp 36.0 C 12/19/17 21:43 Pulse 112 H 12/19/17 21:43 Resp 20 12/19/17 21:43 BP 129/90 12/19/17 21:43 Pulse Ox 93 L 12/19/17 21:43 - Orders/Labs/Meds Meds: Medications Discontinued Medications Generic Name Dose Route Start Last Admin Trade Name Amita PRN Reason Stop Dose Admin Hydroxyzine HCl 25 mg 12/19/17 21:50 12/19/17 21:56 Atarax PO 12/19/17 21:51 25 mg ONETIME ONE Administration - Re-Assessments/Exams Free Text/Narrative Re-Assessment/Exam: 12/19/17 22:15 s/p vistaril=much better and can take deep breath now. Departure - Departure Time of Disposition: 22:15 Disposition: Home, Self-Care 01 Condition: Good Clinical Impression: Reaction, situational, acute, to stress - Discharge Information Instructions: Panic Attacks, [id number] Forms: ED Department Discharge Additional Instructions: 1) res 2) follow up with family doctor 3) recheck as needed
[2017-12-19 22:22] VITALS: BP 109/62
== END 2017-12-19 22:25 | disposition home or self-care (01) ==
LOC: DL.ED 21:38
DX: F43.8 Other reactions to severe stress (principal); F43.20 Adjustment disorder, unspecified; J45.909 Unspecified asthma, uncomplicated; K21.9 Gastro-esophageal reflux disease without esophagitis; E03.9 Hypothyroidism, unspecified; F17.210 Nicotine dependence, cigarettes, uncomplicated; Z79.899 Other long term (current) drug therapy; Z91.040 Latex allergy status; Z91.09 Other allergy status, other than to drugs and biological substances; Z91.018 Allergy to other foods
CPT/HCPCS: 99284; A9270

== ENCOUNTER 2018-01-27 14:31 | Inpatient (IN) | payer MEDICAID ==
[2018-01-27] MEDS ORDERED: Albuterol/Ipratropium 3.0-0.5 MG/3 ML Neb Soln NEB ONE (15:16)
[2018-01-27] MEDS ORDERED: methylPREDNISolone Sodium Succinate 125 MG/2 ML SDV IVPUSH ONE (15:23)
--- NOTE | 2018-01-27 15:31 | EDM.PDOC ---
ED HPI GENERAL MEDICAL PROBLEM - General Chief Complaint: Respiratory Problem Stated Complaint: [id number] SOB Time Seen by Provider: 01/27/18 15:15 Source of Information: Reports: Patient History Limitations: Reports: No Limitations - History of Present Illness INITIAL COMMENTS - FREE TEXT/NARRATIVE: This 22 yo female patient reports to the ED with increased shortness of breath. The patient reports she started to have congestion 2 days ago, but her symptoms have gotten worse. The patient has a history of asthma (20 years). The patient had a neb treatment at about 1000 this morning, which did not do much for her symptoms. The patient reports she is still on prednisone (10 mg) for breathing problems. Onset: Today Duration: Constant, Getting Worse Location: Reports: Chest Quality: Reports: Pressure Severity: Severe Improves with: Reports: None Worsens with: Reports: None Associated Symptoms: Reports: Shortness of Breath Chest Pain Score (Numeric/FACES): 3 - Related Data Allergies Allergy/AdvReac Type Severity Reaction Status Date / Time latex Allergy Hives Verified 12/19/17 21:42 harvest molds Allergy Cannot Uncoded 12/19/17 21:42 Remember seasonal Allergy Difficulty Uncoded 12/19/17 21:42 Breathing Home Meds: Home Meds Acetaminophen [Tylenol Extra Strength] 1,000 mg PO ASDIRECTED PRN 03/26/17 [ History] Albuterol [IJD: Ventolin HFA] 2 puff INH ASDIRECTED PRN 03/26/17 [History] Ipratropium/Albuterol Sulfate [Iprat-Albut 0.5-3(2.5) mg/3 ml] 3 ml NEB ASDIRECTED PRN 03/26/17 [History] Eletriptan HBr [Relpax] 20 mg PO ASDIRECTED 01/27/18 [History] Levothyroxine [Synthroid] 50 mcg PO ACBREAKFAST 01/27/18 [History] buPROPion HCl [Wellbutrin Xl] 300 mg PO DAILY 01/27/18 [History] Past Medical History - Past Health History Medical/Surgical History: Denies Medical/Surgical History HEENT History: Reports: None Cardiovascular History: Reports: None Respiratory History: Reports: Asthma Gastrointestinal History: Reports: GERD Genitourinary History: Reports: None DECK HAND History: Reports: Spontaneous Other OB/BYN History: times 3 Musculoskeletal History: Reports: None Neurological History: Reports: Migraines Psychiatric History: Reports: Anxiety, Depression, Learning Disability Endocrine/Metabolic History: Reports: Hypothyroidism Hematologic History: Reports: None Immunologic History: Reports: None Oncologic (Cancer) History: Reports: None Dermatologic History: Reports: None - Infectious Disease History Infectious Disease History: Reports: Chicken Pox - Past Surgical History Head Surgeries/Procedures: Reports: None Female Surgical History: Reports: None Social & Family History - Family History Family Medical History: Noncontributory - Tobacco Use Smoking Status *Q: Current Every Day Smoker Years of Tobacco use: 5 Packs/Tins Daily: 1 Used Tobacco, but Quit: Yes Month/Year Tobacco Last Used: Second Hand Smoke Exposure: No - Caffeine Use Caffeine Use: Reports: Coffee, Soda - Recreational Drug Use Recreational Drug Use: No ED ROS GENERAL - Review of Systems Review Of Systems: ROS reveals no pertinent complaints other than HPI. ED EXAM, GENERAL - Physical Exam Exam: See Below Exam Limited By: No Limitations General Appearance: Alert, WD/WN, Moderate Distress, Obese Eye Exam: Bilateral Eye: EOMI, Normal Inspection, PERRL Ears: Normal External Exam, Normal Canal, Hearing Grossly Normal, Normal TMs Nose: Normal Inspection, Normal Mucosa, No Blood Throat/Mouth: Normal Inspection, Normal Lips, Normal Teeth, Normal Gums, Normal Oropharynx, Normal Voice, No Airway Compromise Head: Atraumatic, Normocephalic Neck: Normal Inspection, Supple, Non-Tender, Full Range of Motion Respiratory/Chest: Decreased Breath Sounds, Rhonchi, Wheezing Cardiovascular: No Edema, No Gallop, No JVD, No Murmur, No Rub, Tachycardia GI/Abdominal: Other (morbid obesity) (Female) Exam: Deferred Rectal (Female) Exam: Deferred Back Exam: Normal Inspection, Full Range of Motion, NT Extremities: Normal Inspection, Normal Range of Motion, Non-Tender, Normal Capillary Refill, No Pedal Edema Neurological: Alert, Oriented, CN II-XII Intact, Normal Cognition, Normal Gait, Normal Reflexes, No Motor/Sensory Deficits Psychiatric: Normal Affect, Normal Mood Skin Exam: Warm, Dry, Intact, Normal Color, No Rash Lymphatic: No Adenopathy Course - Vital Signs Last Recorded V/S: Last Vital Signs Temp 37.4 C 01/27/18 15:06 Pulse 116 H 01/27/18 15:06 Resp 23 H 01/27/18 15:06 BP 132/87 01/27/18 15:06 Pulse Ox 93 L 01/27/18 15:06 - Orders/Labs/Meds Orders: Active Orders 24 hr Category Date Time Status EKG Documentation Completion [RC] URGENT Care 01/27/18 15:17 Ordered RT Aerosol Therapy [RC] ASDIRECTED Care 01/27/18 15:17 Ordered CULTURE BLOOD [BC] Stat Lab 01/27/18 16:14 Ordered CULTURE BLOOD [BC] Stat Lab 01/27/18 16:14 Ordered INFLUENZA A+B AG SCREEN [RM] Stat Lab 01/27/18 15:18 Ordered Blood Culture x2 Reflex Set [OM.PC] Stat Oth 01/27/18 16:13 Ordered Labs: Laboratory Tests 01/27/18 01/27/18 01/27/18 Range/Units 15:24 15:24 16:22 WBC 17.7 H (5.0-10.0) 10^3/uL RBC 5.02 (4.2-5.4) 10^6/uL Hgb 9.7 L (12.0-16.0) g/dL Hct 33.3 L (37.0-47.0) % MCV 66.3 L (80-100) fL MCH 19.3 L (27.0-34.0) pg MCHC 29.1 L (33.0-35.0) g/dL Plt Count 434 (150-450) 10^3/uL Neut % (Auto) 83.1 H (42.2-75.2) % Lymph % (Auto) 5.6 L (20.5-50.1) % [place] % (Auto) 7.6 (2-8) % Eos % (Auto) 3.4 H (1.0-3.0) % Baso % (Auto) 0.3 (0.0-1.0) % Sodium 137 (135-145) mmol/L Potassium 3.9 (3.6-5.0) mmol/L Chloride 106 (101-111) mmol/L Carbon Dioxide 24.0 (21.0-31.0) mmol/L Anion Gap 10.9 BUN 10 (7-18) mg/dL Creatinine 0.7 (0.6-1.3) mg/dL Est Cr Clr Drug Dosing 120.67 mL/min Estimated GFR (MDRD) > 60 BUN/Creatinine Ratio 14.28 Glucose 86 (74-105) mg/dL Lactic Acid 1.8 (0.5-2.2) mmol/L Calcium 9.1 (8.4-10.2) mg/dl Total Bilirubin 0.3 (0.2-1.0) mg/dL AST 21 (10-42) IU/L ALT 16 (10-60) IU/L Alkaline Phosphatase 83 (42-121) IU/L Total Protein 7.9 (6.7-8.2) g/dl Albumin 3.8 (3.2-5.5) g/dl Globulin 4.1 Albumin/Globulin Ratio 0.93 Meds: Medications Discontinued Medications Generic Name Dose Route Start Last Admin Trade Name Freq PRN Reason Stop Dose Admin Albuterol/Ipratropium 3 ml 01/27/18 15:16 01/27/18 15:27 Duoneb 3.0-0.5 Mg/3 Ml NEB 01/27/18 15:17 3 ml ONETIME ONE Administration Methylprednisolone Sodium Succinate 125 mg 01/27/18 15:23 01/27/18 15:59 Solu-Medrol IVPUSH 01/27/18 15:24 125 mg ONETIME ONE Administration Departure - Departure Time of Disposition: 18:17 Disposition: Admitted As Inpatient 68 Condition: Poor Clinical Impression: Exacerbation of asthma Qualifiers: Asthma severity: moderate Asthma persistence: unspecified Qualified Code(s): J45.901 - Unspecified asthma with (acute) exacerbation - Discharge Information Care Plan Goals: Discussed the patient with Dr. Rendon. Dr. Rendon accepted the patient for continued evaluation and management. - My Orders Last 24 Hours: My Active Orders 01/27/18 15:17 EKG Documentation Completion [RC] URGENT RT Aerosol Therapy [RC] ASDIRECTED 01/27/18 15:18 INFLUENZA A+B AG SCREEN [RM] Stat 01/27/18 16:13 Blood Culture x2 Reflex Set [OM.PC] Stat 01/27/18 16:14 CULTURE BLOOD [BC] Stat CULTURE BLOOD [BC] Stat - Assessment/Plan Last 24 Hours: My Active Orders 01/27/18 15:17 EKG Documentation Completion [RC] URGENT RT Aerosol Therapy [RC] ASDIRECTED 01/27/18 15:18 INFLUENZA A+B AG SCREEN [RM] Stat 01/27/18 16:13 Blood Culture x2 Reflex Set [OM.PC] Stat 01/27/18 16:14 CULTURE BLOOD [BC] Stat CULTURE BLOOD [BC] Stat
[2018-01-27 15:49] LABS: CHLORIDE,CL 106 mmol/L (101-111); SODIUM,NA 137 mmol/L (135-145)
--- NOTE | 2018-01-27 16:40 | CR ---
Clinical history: 22-year-old female complaining of shortness of breath. Interpretation: Reasonable inspiratory effort morbidly obese (pickwickian) patient with normal cardia c silhouette. Normal cardiac silhouette without cephalization of vascular flow, signs of alveolar edema or dependen t pleural fluid accumulation. Marcell thorax unremarkable. No lung mass, hilar lymphadenopathy, focal lobar pneumonia or atelectasis/collapse. Subtle peribronch ial "cuffing". No air trapping. No pneumothorax or free subdiaphragmatic air. Normal midline tracheal airway. CONCLUSION: No acute cardiopulmonary abnormality.
[2018-01-27] MEDS ORDERED: Ondansetron 4 MG/2 ML SDV IVPUSH PRN (18:25)
[2018-01-27] MEDS ORDERED: Acetaminophen 325 MG Tab PO PRN (18:25)
[2018-01-27] MEDS ORDERED: Ondansetron 4 MG Tab.DIS PO PRN (18:25)
[2018-01-27] MEDS ORDERED: Sodium Chloride 0.9% 1,000 ML IV SCH (18:30)
--- NOTE | 2018-01-27 18:40 | PCM.HP ---
H&P History of Present Illness - General Date of Service: 01/27/18 Admit Problem/Dx: Admission Diagnosis/Problem Admission Diagnosis/Problem Asthma Source of Information: Patient History Limitations: Reports: No Limitations - History of Present Illness Initial Comments - Free Text/Narative: The patient is a 22-year-old female with medical history of asthma, anxiety, and hypothyroidism. She presented to the emergency room with complaint of shortness of breath which started 4 days ago. Initially it was mild but has worsened over time. There is associated wheezing. Her exercise tolerance became markedly limited. Patient was using bronchodilators but they will not helping. She went in and saw her primary care provider and was placed on prednisone and that also has not been helpful. Today at the clinic she was noted to be hypoxic with oxygen saturation down to 88%. She was tachycardic hence was referred to the emergency room for further evaluation. Denies having chest pain. Denies headache or blurring of vision. No abdominal pain change in bowel or urinary habit. She has been having intermittent fever. This morning her temperature was up to 100.2. She has trouble expectorating sputum though has been coughing quite a bit Duration of Symptoms: Reports: Day(s): (4) Location: Reports: Chest Severity: Moderate Worsens with: Reports: Movement Associated Symptoms: Reports: Cough Chest Pain Score (Numeric/FACES): 3 - Related Data Allergies/Adverse Reactions: Allergies Allergy/AdvReac Type Severity Reaction Status Date / Time latex Allergy Hives Verified 12/19/17 21:42 harvest molds Allergy Cannot Uncoded 12/19/17 21:42 Remember seasonal Allergy Difficulty Uncoded 12/19/17 21:42 Breathing Home Medications: Home Meds Acetaminophen [Tylenol Extra Strength] 1,000 mg PO ASDIRECTED PRN 03/26/17 [ History] Albuterol [IJD: Ventolin HFA] 2 puff INH ASDIRECTED PRN 03/26/17 [History] Ipratropium/Albuterol Sulfate [Iprat-Albut 0.5-3(2.5) mg/3 ml] 3 ml NEB ASDIRECTED PRN 03/26/17 [History] Eletriptan HBr [Relpax] 20 mg PO ASDIRECTED 01/27/18 [History] Levothyroxine [Synthroid] 50 mcg PO ACBREAKFAST 01/27/18 [History] buPROPion HCl [Wellbutrin Xl] 300 mg PO DAILY 01/27/18 [History] Past Medical History - Past Health History Medical/Surgical History: Denies Medical/Surgical History HEENT History: Reports: None Cardiovascular History: Reports: None Respiratory History: Reports: Asthma Gastrointestinal History: Reports: GERD Genitourinary History: Reports: None E/M ENGINEER History: Reports: Spontaneous Other OB/BYN History: times 3 Musculoskeletal History: Reports: None Neurological History: Reports: Migraines Psychiatric History: Reports: Anxiety, Depression, Learning Disability Endocrine/Metabolic History: Reports: Hypothyroidism Hematologic History: Reports: None Immunologic History: Reports: None Oncologic (Cancer) History: Reports: None Dermatologic History: Reports: None - Infectious Disease History Infectious Disease History: Reports: Chicken Pox - Past Surgical History Head Surgeries/Procedures: Reports: None Female Surgical History: Reports: None Social & Family History - Family History Family Medical History: Noncontributory - Tobacco Use Smoking Status *Q: Current Every Day Smoker Years of Tobacco use: 5 Packs/Tins Daily: 1 Used Tobacco, but Quit: Yes Month/Year Tobacco Last Used: Second Hand Smoke Exposure: No - Caffeine Use Caffeine Use: Reports: Coffee, Soda - Recreational Drug Use Recreational Drug Use: No H&P Review of Systems - Review of Systems: Review Of Systems: See Below General: Reports: Fever, Malaise Pulmonary: Reports: Shortness of Breath, Wheezing, Cough Cardiovascular: Reports: No Symptoms Gastrointestinal: Reports: No Symptoms Genitourinary: Reports: No Symptoms Musculoskeletal: Reports: No Symptoms Psychiatric: Reports: No Symptoms Neurological: Reports: No Symptoms Exam - Exam Exam: See Below - Vital Signs Vital Signs: Last Vital Signs Temp 37.4 C 01/27/18 15:06 Pulse 116 H 01/27/18 16:00 Resp 23 H 01/27/18 15:06 BP 137/85 01/27/18 16:15 Pulse Ox 92 L 01/27/18 16:25 Weight: 161.116 kg - Exam Quality Assessment: Supplemental Oxygen General: Alert, Oriented, Cooperative HEENT: PERRLA, Hearing Intact, Mucosa Moist & [place], Nares Patent, Normal Nasal Septum, Posterior Pharynx Clear, Conjunctiva Clear, EOMI, EACs Clear, TMs Clear Neck: Supple, Trachea Midline, 2 Lungs: Decreased Breath Sounds, Rhonchi Cardiovascular: Tachycardia GI/Abdominal Exam: Normal Bowel Sounds, Soft, Non-Tender, No Organomegaly, No Distention, No Abnormal Bruit, No Mass, Pelvis Stable Back Exam: Normal Inspection, Full Range of Motion, NT Extremities: Normal Inspection, Normal Range of Motion, Non-Tender, No Pedal Edema, Normal Capillary Refill Neuro Extensive - Mental Status: Alert, Oriented x3, Normal Mood/Affect, Normal Cognition - Patient Data Lab Results Last 24 hrs: Laboratory Results - last 24 hr 01/27/18 01/27/18 01/27/18 Range/Units 15:24 15:24 16:22 WBC 17.7 H (5.0-10.0) 10^3/uL RBC 5.02 (4.2-5.4) 10^6/uL Hgb 9.7 L (12.0-16.0) g/dL Hct 33.3 L (37.0-47.0) % MCV 66.3 L (80-100) fL MCH 19.3 L (27.0-34.0) pg MCHC 29.1 L (33.0-35.0) g/dL Plt Count 434 (150-450) 10^3/uL Neut % (Auto) 83.1 H (42.2-75.2) % Lymph % (Auto) 5.6 L (20.5-50.1) % [place] % (Auto) 7.6 (2-8) % Eos % (Auto) 3.4 H (1.0-3.0) % Baso % (Auto) 0.3 (0.0-1.0) % Sodium 137 (135-145) mmol/L Potassium 3.9 (3.6-5.0) mmol/L Chloride 106 (101-111) mmol/L Carbon Dioxide 24.0 (21.0-31.0) mmol/L Anion Gap 10.9 BUN 10 (7-18) mg/dL Creatinine 0.7 (0.6-1.3) mg/dL Est Cr Clr Drug Dosing 120.67 mL/min Estimated GFR (MDRD) > 60 BUN/Creatinine Ratio 14.28 Glucose 86 (74-105) mg/dL Lactic Acid 1.8 (0.5-2.2) mmol/L Calcium 9.1 (8.4-10.2) mg/dl Total Bilirubin 0.3 (0.2-1.0) mg/dL AST 21 (10-42) IU/L ALT 16 (10-60) IU/L Alkaline Phosphatase 83 (42-121) IU/L Total Protein 7.9 (6.7-8.2) g/dl Albumin 3.8 (3.2-5.5) g/dl Globulin 4.1 Albumin/Globulin Ratio 0.93 Result Diagrams: 01/27/18 15:24 01/27/18 15:24 Moisés Results Last 24 hrs: Microbiology 01/27/18 16:28 Anaerobic Blood Culture - Final Blood - Venous - Lab Draw 01/27/18 15:24 Influenza Type A Antigen Screen - Final Nasal, Unspecified NEGATIVE INFLUENZA A VIRUS AG Influenza Type B Antigen Screen - Final NEGATIVE INFLUENZA B VIRUS AG Problem List Initiated/Reviewed/Updated: Yes Orders Last 24hrs: Active Orders 24 hr Category Date Time Status Patient Status [ADT] Routine ADT 01/27/18 18:25 Ordered EKG Documentation Completion [RC] URGENT Care 01/27/18 15:17 Active Oxygen Therapy [RC] PRN Care 01/27/18 18:25 Ordered Pulse Oximetry [RC] PRN Care 01/27/18 18:27 Ordered RT Aerosol Therapy [RC] ASDIRECTED Care 01/27/18 15:17 Active RT Aerosol Therapy [RC] ASDIRECTED Care 01/27/18 18:29 Ordered Up ad Denise [RC] ASDIRECTED Care 01/27/18 18:25 Ordered VTE/DVT Education [RC] PER UNIT ROUTINE Care 01/27/18 18:25 Ordered Vital Signs [RC] Q4H Care 01/27/18 18:25 Ordered Regular Diet [DIET] Diet 01/27/18 Breakfast Ordered BASIC METABOLIC PANEL,BMP [CHEM] AM Lab 01/28/18 05:11 Ordered CBC WITH AUTO DIFF [HEME] AM Lab 01/28/18 05:11 Ordered CULTURE BLOOD [BC] Stat Lab 01/27/18 16:22 Received CULTURE BLOOD [BC] Stat Lab 01/27/18 16:28 Results CULTURE SPUTUM + SMEAR [RM] Stat Lab 01/27/18 18:25 Ordered INFLUENZA A+B AG SCREEN [RM] Stat Lab 01/27/18 15:24 Ordered Acetaminophen [Tylenol] Med 01/27/18 18:25 Ordered 650 mg PO Q4H PRN Albuterol [Proventil Neb Soln] Med 01/27/18 18:29 Ordered 2.5 mg NEB Q4H PRN Albuterol/Ipratropium [DuoNeb 3.0-0.5 MG/3 ML] Med 01/27/18 21:00 Ordered 3 ml NEB QID Azithromycin [Zithromax] 500 mg Med 01/27/18 18:30 Ordered Sodium Chloride 0.9% [Normal Saline] 250 ml IV Q24H Heparin Sodium Med 01/27/18 22:00 Ordered 5,000 units SUBCUT Q8HR Hydrocortisone Sod Succinate [Solu-CORTEF] Med 01/27/18 18:30 Ordered 40 mg IVPUSH Q8H Levothyroxine [Synthroid] Med 01/28/18 06:00 Ordered 50 mcg PO ACBREAKFAST Ondansetron [Zofran ODT] Med 01/27/18 18:25 Ordered 4 mg PO Q6H PRN Ondansetron [Zofran] Med 01/27/18 18:25 Ordered 4 mg IVPUSH Q6H PRN Sodium Chloride 0.9% [Normal Saline] 1,000 ml Med 01/27/18 18:30 Ordered IV ASDIRECTED buPROPion HCl [Wellbutrin Xl] Med 01/28/18 09:00 Ordered 300 mg PO DAILY Blood Culture x2 Reflex Set [OM.PC] Stat Oth 01/27/18 16:13 Ordered Resuscitation Status Routine Resus Stat 01/27/18 18:25 Ordered Assessment/Plan Comment:: The patient is a 22-year-old female with medical history of asthma, anxiety, and hypothyroidism. She presented to the emergency room with complaint of shortness of breath which started 4 days ago. Initially it was mild but has worsened over time. There is associated wheezing. Her exercise tolerance became markedly limited. Patient was using bronchodilators but they will not helping. She went in and saw her primary care provider and was placed on prednisone and that also has not been helpful. Today at the clinic she was noted to be hypoxic with oxygen saturation down to 88%. She was tachycardic hence was referred to the emergency room for further evaluation. Denies having chest pain. Denies headache or blurring of vision. No abdominal pain change in bowel or urinary habit. She has been having intermittent fever. This morning her temperature was up to 100.2. She has trouble expectorating sputum though has been coughing quite a bit Assessment/plan: #. Acute exacerbation of asthma. The patient is coughing wheezingAbdomen has decreased exercise tolerance. #. Acute bronchitis Has been coughing a lot. Has also been having fever. Hypothyroidism On hormone replacement therapy Anxiety disorder patient has been on anxiolytic- Plan: Admit patient to medical floor. Commence aggressive nebulization with DuoNeb. Start intravenous Solu Medrol. Intravenous hydration with normal saline going at 75 mL an hour Send sputum for Gram stain and cultures
[2018-01-27] MEDS: Hydrocortisone Sodium Succinate 100 MG/2 ML SDV IVPUSH SCH (19:16)
[2018-01-27] MEDS: Azithromycin 500 MG in Sodium Chloride 0.9% 250 ML IV SCH (19:18)
[2018-01-27] MEDS: Albuterol/Ipratropium 3.0-0.5 MG/3 ML Neb Soln NEB SCH (21:07)
[2018-01-27] MEDS: Heparin Sodium 5,000 Units/ML Vial SUBCUT SCH (21:09)
[2018-01-27] MEDS: Zolpidem 5 MG Tab PO PRN (21:16)
[2018-01-28] MEDS: Albuterol 0.083% 2.5 MG/3 ML Neb Soln NEB PRN ×2 (01:25→10:19)
[2018-01-28] MEDS: Hydrocortisone Sodium Succinate 100 MG/2 ML SDV IVPUSH SCH ×3 (02:51→18:02)
[2018-01-28] MEDS ORDERED: Levothyroxine 50 MCG Tab PO SCH (06:00)
[2018-01-28] MEDS: Heparin Sodium 5,000 Units/ML Vial SUBCUT SCH ×3 (06:03→22:07)
[2018-01-28 07:00] LABS: CHLORIDE,CL 105 mmol/L (101-111); SODIUM,NA 136 mmol/L (135-145)
[2018-01-28] MEDS: Albuterol/Ipratropium 3.0-0.5 MG/3 ML Neb Soln NEB SCH ×4 (07:54→20:36)
[2018-01-28] MEDS: buPROPion 150 MG Tab.ER PO SCH (09:16)
[2018-01-28] MEDS ORDERED: ELETRIPTAN HBR 20 MG PO PRN (09:33)
--- NOTE | 2018-01-28 12:56 | PN ---
DATE: 01/28/2018 SUBJECTIVE: Ms. Otoniel Mir is a 22-year-old female with a medical history significant for asthma, anxiety, and hypothyroidism, admitted to the hospital with complaints of increasing shortness of breath and low-grade temperature. Noted to have acute asthma exacerbation with underlying acute bronchitis. For the last 24 hours, the patient is started on nebulizer treatment IV methylprednisone. She is responding well to the treatment. She denies any chest pain. Continues to have mild shortness of breath on exertion. Denies any abdominal pain. No nausea. No vomiting. No diarrhea. REVIEW OF SYSTEMS: Cardiovascular, respiratory, gastrointestinal, neurology, constitutional were all evaluated. PHYSICAL EXAMINATION: Vital Signs: Temperature of 98.5, pulse of 96, blood pressure 106/62, respiratory rate of 20, and saturating at 97% on room air. General Appearance: The patient is well oriented to time, place, and person. Follows commands spontaneously. Cardiovascular System: S1 and S2 heard with normal intensity. No gallops. Respiratory System: Clear to auscultation bilaterally. Mild wheeze noted on the lower lobe. No crepitations. Abdomen: Soft. Bowel sounds positive. Nontender. No rigidity. Neurology: No gross focal neurological deficit. MEDICATIONS: Reviewed. Continue with: 1. Tylenol 650 every 4 hours as needed for pain and fever. 2. Albuterol 2.5 nebulizer every 4 hours as needed. 3. DuoNeb 3 mL 4 times a day. 4. Elavil 25 mg at bedtime. 5. Zithromax IV daily. 6. Wellbutrin 300 mg daily. 7. Folic acid 1 mg daily. 8. Heparin 5000 subcutaneous q.8 hourly. 9. Solu-Cortef 40 mg IV q.8 hourly. 10.Levothyroxine 50 mcg daily. 11.Protonix 40 mg daily. 12.Ambien 5 mg at bedtime. LABORATORY DATA: Reviewed. 1. WBC 20.1, hemoglobin 9.5, hematocrit 32.8, platelet count 470. 2. Sodium 136, potassium 3.9, chloride 105, bicarb 22, BUN 10, creatinine 0.7, glucose 148. ASSESSMENT: 1. Acute asthma exacerbation. 2. Acute bronchitis. 3. Hypothyroidism. 4. History of anxiety. PLAN: 1. Acute asthma exacerbation. The patient is currently on IV steroids and also nebulizer treatments. Continue the same. The patient will be encouraged to use incentive spirometer and flutter valve. We will closely follow the patient. 2. Acute bronchitis. The patient is empirically started on antibiotics. We will await for cultures. 3. Hypothyroidism. Continue with levothyroxine. 4. Anxiety disorder. Continue with anxiolytics. MODL /[id number]
[2018-01-28] MEDS: Azithromycin 500 MG in Sodium Chloride 0.9% 250 ML IV SCH (18:02)
[2018-01-28] MEDS: guaiFENesin 100 MG/5 ML Soln 5 ML UD Cup PO PRN (18:07)
[2018-01-28] MEDS: Amitriptyline 25 MG Tab PO SCH (20:35)
[2018-01-28] MEDS: Sodium Chloride 0.9% 10 ML Syringe FLUSH PRN (21:00)
[2018-01-28] MEDS: Acetaminophen 500 MG Tab PO PRN (21:35)
[2018-01-28] MEDS: Zolpidem 5 MG Tab PO PRN (21:40)
[2018-01-29] MEDS: Sodium Chloride 0.9% 10 ML Syringe FLUSH PRN ×2 (03:18→03:26)
[2018-01-29] MEDS: Hydrocortisone Sodium Succinate 100 MG/2 ML SDV IVPUSH SCH (03:18)
[2018-01-29] MEDS: Heparin Sodium 5,000 Units/ML Vial SUBCUT SCH ×3 (06:22→21:04)
[2018-01-29] MEDS: Pantoprazole 40 MG Tab.CR PO SCH (06:24)
[2018-01-29] MEDS: Levothyroxine 125 MCG Tab PO SCH (06:24)
[2018-01-29 06:52] LABS: CHLORIDE,CL 107 mmol/L (101-111); SODIUM,NA 137 mmol/L (135-145)
[2018-01-29] MEDS: Albuterol/Ipratropium 3.0-0.5 MG/3 ML Neb Soln NEB SCH ×4 (07:33→20:41)
[2018-01-29] MEDS: buPROPion 150 MG Tab.ER PO SCH (09:00)
[2018-01-29] MEDS: Folic Acid 1 MG Tab PO SCH (09:00)
[2018-01-29] MEDS: Multivitamins,Therapeutic Tab PO SCH (09:00)
[2018-01-29] MEDS: Acetaminophen 500 MG Tab PO PRN (09:01)
[2018-01-29] MEDS: Azithromycin 250 MG Tab PO SCH (11:44)
[2018-01-29] MEDS: predniSONE 10 MG Tab PO SCH (11:47)
[2018-01-29] MEDS: guaiFENesin 100 MG/5 ML Soln 5 ML UD Cup PO PRN ×2 (11:47→20:54)
--- NOTE | 2018-01-29 13:36 | PN ---
DATE: 01/29/2018 SUBJECTIVE: Ms. Otoniel Salmeron is a 22-year-old female with a medical history significant for asthma, anxiety, hypothyroidism, admitted with increasing shortness of breath and noted to have acute asthma exacerbation along with acute bronchitis. For the last 24 hours, the patient continues to have dyspnea on exertion. She continues to have cough. She denies any fevers or chills. Denies any chest pain. No abdominal pain. No nausea. No vomiting. No diarrhea. REVIEW OF SYSTEMS: Cardiovascular, respiratory, gastrointestinal, neurology, constitutional were all evaluated. PHYSICAL EXAMINATION: Vital Signs: Temperature of 98, pulse of 113, blood pressure 112/67, respiratory rate of 18, saturating at 99% on room air. General Appearance: The patient is well oriented to time, place, and person. Follows commands spontaneously. Cardiovascular System: S1, S2 heard with normal intensity. No gallops. Respiratory System: Clear to auscultation bilaterally. No wheeze. No crepitations. Abdomen: Soft. Bowel sounds positive. Nontender. No rigidity. No guarding. No rebound tenderness. Extremities: No edema, bilateral lower extremities. Neurology: No gross focal neurological deficit. MEDICATIONS: Reviewed, continue with, 1. Tylenol 3 times a day as needed for pain. 2. DuoNeb 3 mL nebulizer 4 times a day. 3. Elavil 25 mg at bedtime. 4. Zithromax 250 mg daily. 5. Wellbutrin 300 mg daily. 6. Folic acid 1 mg daily. 7. Robitussin as needed for cough. 8. Heparin 5000 subcutaneous q.8 hourly. 9. Levothyroxine 375 mcg daily. 10.Multivitamin daily. 11.Zofran 4 mg every 6 hours as needed. 12.Protonix 40 mg daily. 13.Prednisone 20 mg daily. 14.Zolpidem, Ambien 5 mg at bedtime as needed for sleep. LABORATORY DATA: Reviewed. WBC 18, hemoglobin 8.9, hematocrit 31.1 platelet count 413. Sodium 137, potassium 4.1, chloride 107, bicarb 24, BUN 14, creatinine 0.6, glucose 116. ASSESSMENT: 1. Acute asthma exacerbation. 2. Acute bronchitis. 3. Hypothyroidism. PLAN: 1. Acute asthma exacerbation. The patient admitted with increasing shortness of breath and was noted to be in acute asthma exacerbation. She continues to have tachycardia and she continues to have dyspnea on exertion. We will switch her IV steroids to oral steroids as she does not have any wheeze. We will switch her to oral antibiotic. We will have one more day in the hospital as she continues to have tachycardia and also dyspnea on exertion. We will switch her to inpatient at this time and we will closely follow. 2. Acute bronchitis. The patient was started on IV Zithromax. We will switch her to oral Zithromax for now. 3. Hypothyroidism. Continue with current dose of levothyroxine. 4. Possible discharge in a.m. if she remains hemodynamically stable. [facility] /[id number]
[2018-01-29] MEDS: Amitriptyline 25 MG Tab PO SCH (20:52)
[2018-01-30] MEDS: Heparin Sodium 5,000 Units/ML Vial SUBCUT SCH (06:38)
[2018-01-30] MEDS: Levothyroxine 125 MCG Tab PO SCH (06:38)
[2018-01-30] MEDS: Pantoprazole 40 MG Tab.CR PO SCH (06:38)
[2018-01-30] MEDS: buPROPion 150 MG Tab.ER PO SCH (08:01)
[2018-01-30] MEDS: Albuterol/Ipratropium 3.0-0.5 MG/3 ML Neb Soln NEB SCH (08:01)
[2018-01-30] MEDS: Folic Acid 1 MG Tab PO SCH (08:01)
[2018-01-30] MEDS: predniSONE 10 MG Tab PO SCH (08:01)
[2018-01-30] MEDS: Multivitamins,Therapeutic Tab PO SCH (08:01)
[2018-01-30] MEDS: Azithromycin 250 MG Tab PO SCH (08:01)
[2018-01-30 08:34] VITALS: BP 110/59
--- NOTE | 2018-02-01 09:17 | DISCH ---
PATIENT WAS ADMITTED TO OBSERVATION ON 01/27/2018 DOS: 01/30/2018 ADMITTING DIAGNOSES: 1. Acute asthma exacerbation. 2. Acute bronchitis. DISCHARGE DIAGNOSES: 1. Acute asthma exacerbation, resolved. 2. Acute bronchitis, improved on antibiotics. 3. Hypothyroidism. HISTORY OF PRESENT ILLNESS: Ms. Otoniel Mir is a 22-year-old female with medical history significant for hypothyroidism, obesity, and asthma, was admitted to the hospital with complaints of increasing shortness of breath and was noted to be in acute asthma exacerbation. The patient was also noted to have hypoxia at the time of admission; and the patient was admitted to the hospital and was started on IV steroids, nebulizer treatment, and then IV antibiotics. She responded well to the treatment. Her wheezing is much improved. Her hypoxia got resolved. She did not have any further fevers or chills on this admission. She is discharged home in stable condition. She was switched to oral antibiotics and tapered dose of steroids at the time of discharge. She will continue with her home nebulizer treatment. She is advised to follow with her primary care doctor in the next 1 week of time. DISCHARGE MEDICATIONS: Include: 1. Tylenol 1000 mg 3 times a day as needed for pain. 2. Albuterol 2-puff inhalation 4 times a day as needed for dyspnea. 3. Amitriptyline 25 mg at bedtime. 4. Zithromax 500 mg daily for the next 5 days. 5. Pulmicort 2 mL inhalation twice daily. 6. Relpax 20 mg daily as needed for headache. 7. Ferrous sulfate 325 mg at bedtime. 8. Advair Diskus 1 puff inhalation twice a day. 9. Folic acid 1 mg daily. 10.DuoNeb 3 mL nebulizer as needed for dyspnea. 11.Levothyroxine 375 mcg at breakfast. 12.Multivitamin 1 tablet daily. 13.Prednisone tapered dose from 20 to 10 to 5. 14.Wellbutrin 300 mg daily. PHYSICAL EXAMINATION: On the day of discharge: Vital Signs: Temperature of 97.4, pulse of 87, blood pressure 110/59, respiratory rate of 20, and saturating at 95% on room air. General Appearance: The patient is well oriented to time, place, and person. Follows commands spontaneously. Cardiovascular System: S1 and S2 heard with normal intensity. No gallops. Respiratory System: Clear to auscultation bilaterally. No wheeze. No crepitations. Abdomen: Soft. Bowel sounds positive. Nontender. No rigidity. Extremities: No edema in the bilateral lower extremities. CONDITION ON ADMISSION: Poor. CONDITION ON DISCHARGE: Stable. ACTIVITY: As tolerated. DIET: Regular diet as tolerated. FOLLOWUP: Follow up with the primary care physician in the next 1 to 2 weeks of time. TIME SPENT: Spent over 35 minutes of time in evaluating and treating this patient and making discharge plans. [facility] /[id number]
--- NOTE | 2018-02-01 10:01 | EKG ---
01/27/2018 - HERMES WANG - FINDINGS: This 12-lead EKG shows normal sinus rhythm with sinus tachycardia with a heart rate of 125. No significant ST elevation or ST depression noted on this 12-lead EKG. [facility] /[id number]
== END 2018-01-30 11:45 | disposition home or self-care (01) | DRG 202 ==
LOC: DL.ED 14:31 → DL.MS 18:25 → UNDOADMOB 18:27 → OBSVTOIN 01-29 11:06
PROVIDERS: ADMIT Internal Medicine; ATTEND Internal Medicine
DX: J45.901 Unspecified asthma with (acute) exacerbation (principal); Z68.43 Body mass index [BMI] 50.0-59.9, adult; J20.9 Acute bronchitis, unspecified; R09.02 Hypoxemia; K21.9 Gastro-esophageal reflux disease without esophagitis; G43.909 Migraine, unspecified, not intractable, without status migrainosus; F41.9 Anxiety disorder, unspecified; F32.9 Major depressive disorder, single episode, unspecified; F81.9 Developmental disorder of scholastic skills, unspecified; E03.9 Hypothyroidism, unspecified; F17.200 Nicotine dependence, unspecified, uncomplicated; E66.9 Obesity, unspecified; R06.02 Shortness of breath; Z28.21 Immunization not carried out because of patient refusal; Z79.52 Long term (current) use of systemic steroids; Z91.040 Latex allergy status; Z91.048 Other nonmedicinal substance allergy status; Z79.899 Other long term (current) drug therapy
CPT/HCPCS: 36415 ×3; 71046; 80048 ×2; 80053; 83605; 85025 ×2; 85027; 87040 ×2; 87070; 87205; 87804 ×2; 93005; 93010; 94640 ×8; 96365; 96366; 96375; 99285; A9270 ×13; J0456 ×2; J1644 ×3; J1720 ×5; J2930; J7030; J7050 ×5; J7620 ×2

== ENCOUNTER 2018-03-08 21:18 | Emergency (ER) | payer MEDICAID ==
[2018-03-09 02:18] LABS: CHLORIDE,CL 107 mmol/L (101-111); SODIUM,NA 136 mmol/L (135-145)
== END 2018-03-08 22:45 | disposition home or self-care (01) ==
LOC: DL.ED 21:18
DX: F41.9 Anxiety disorder, unspecified (principal)
CPT/HCPCS: 36415; 70450; 72125; 80053; 85025; 85610; 99284

== ENCOUNTER 2018-06-18 21:41 | Emergency (ER) | payer MEDICAID ==
[2018-06-18] MEDS ORDERED: Codeine/Promethazine 10-6.25 MG/5 ML Syrup 5 ML UD Cup PO ONE (21:42)
[2018-06-18 22:46] VITALS: BP 100/50
[2018-06-18] MEDS ORDERED: Albuterol/Ipratropium 3.0-0.5 MG/3 ML Neb Soln NEB ONE (22:54)
[2018-06-18] MEDS ORDERED: methylPREDNISolone Sodium Succinate 125 MG/2 ML SDV IVPUSH ONE (23:36)
--- NOTE | 2018-06-18 23:36 | EDM.PDOC ---
ED HPI GENERAL MEDICAL PROBLEM - General Chief Complaint: Respiratory Problem Stated Complaint: ASTHMA [id number] Time Seen by Provider: 06/18/18 23:35 Source of Information: Reports: Patient History Limitations: Reports: No Limitations - History of Present Illness INITIAL COMMENTS - FREE TEXT/NARRATIVE: c/o asthma exac tried duo neb at home but not helping Chest Pain Score (Numeric/FACES): 4 - Related Data Allergies Allergy/AdvReac Type Severity Reaction Status Date / Time latex Allergy Hives Verified 06/18/18 22:47 soap Allergy Rash Verified 06/18/18 22:47 harvest molds Allergy Cannot Uncoded 06/18/18 22:47 Remember seasonal Allergy Difficulty Uncoded 06/18/18 22:47 Breathing Home Meds: Home Meds Albuterol [IJD: Ventolin HFA] 2 puff INH QID PRN 03/26/17 [History] Ipratropium/Albuterol Sulfate [Iprat-Albut 0.5-3(2.5) mg/3 ml] 3 ml NEB Q4HR PRN 03/26/17 [History] Amitriptyline [Elavil] 25 mg PO BEDTIME 01/27/18 [History] Eletriptan HBr [Relpax] 20 mg PO DAILY PRN 01/27/18 [History] Ferrous Sulfate [Iron] 325 mg PO BEDTIME 01/27/18 [History] Fluticasone/Salmeterol [Advair 250-50 Diskus] 1 puff INH BID 01/27/18 [History] Folic Acid 1 mg PO DAILY 01/27/18 [History] Levothyroxine [Synthroid] 350 mcg PO ACBREAKFAST 01/27/18 [History] Multivitamin [One Daily Multivitamin] 1 tab PO DAILY 01/27/18 [History] buPROPion HCl [Wellbutrin Xl] 300 mg PO DAILY 01/27/18 [History] Past Medical History - Past Health History Medical/Surgical History: Denies Medical/Surgical History HEENT History: Reports: None Cardiovascular History: Reports: None Respiratory History: Reports: Asthma, Bronchitis, Recurrent, Pneumonia, Recurrent Gastrointestinal History: Reports: GERD Genitourinary History: Reports: None [employer]IMMER History: Reports: Spontaneous Other [employer]MER History: times 3 Musculoskeletal History: Reports: None Neurological History: Reports: Migraines Psychiatric History: Reports: Anxiety, Depression, Learning Disability Endocrine/Metabolic History: Reports: Hypothyroidism, Obesity/BMI 30+ Hematologic History: Reports: None, Anemia Immunologic History: Reports: None Oncologic (Cancer) History: Reports: None Dermatologic History: Reports: None - Infectious Disease History Infectious Disease History: Reports: Chicken Pox - Past Surgical History Head Surgeries/Procedures: Reports: None HEENT Surgical History: Reports: None Female Surgical History: Reports: None Social & Family History - Family History Family Medical History: Noncontributory - Tobacco Use Smoking Status *Q: Never Smoker Second Hand Smoke Exposure: No - Caffeine Use Caffeine Use: Reports: Soda - Recreational Drug Use Recreational Drug Use: No ED ROS GENERAL - Review of Systems Review Of Systems: ROS reveals no pertinent complaints other than HPI. ED EXAM, GENERAL - Physical Exam Exam: See Below Exam Limited By: No Limitations General Appearance: Alert, WD/WN, Mild Distress, Other (sob) Ears: Hearing Grossly Normal Throat/Mouth: Normal Voice, No Airway Compromise Head: Atraumatic Neck: Non-Tender, Full Range of Motion Respiratory/Chest: Decreased Breath Sounds, Rhonchi, Wheezing Cardiovascular: Regular Rate, Rhythm GI/Abdominal: Soft, Non-Tender Neurological: Alert, Oriented, Normal Cognition, Normal Gait, No Motor/Sensory Deficits Psychiatric: Normal Affect, Normal Mood Skin Exam: Warm, Dry, Normal Color Lymphatic: No Adenopathy Course - Vital Signs Last Recorded V/S: Last Vital Signs Temp 36.6 C 06/18/18 22:46 Pulse 104 H 06/18/18 22:46 Resp 22 H 06/18/18 22:46 BP 100/50 L 06/18/18 22:46 Pulse Ox 94 L 06/18/18 22:46 - Orders/Labs/Meds Orders: Active Orders 24 hr Category Date Time Status RT Aerosol Therapy [RC] ASDIRECTED Care 06/18/18 22:55 Active Meds: Medications Discontinued Medications Generic Name Dose Route Start Last Admin Trade Name Freq PRN Reason Stop Dose Admin Albuterol/Ipratropium 3 ml 06/18/18 22:54 06/18/18 22:58 Duoneb 3.0-0.5 Mg/3 Ml NEB 06/18/18 22:55 3 ml ONETIME ONE Administration Methylprednisolone Sodium Succinate 125 mg 06/18/18 23:36 06/18/18 23:42 Solu-Medrol IVPUSH 06/18/18 23:37 125 mg ONETIME ONE Administration Promethazine HCl/Codeine Confirm 06/18/18 23:51 Phenergan With Codeine Administered 06/18/18 23:52 Dose 5 ml .ROUTE .STK-MED ONE - Re-Assessments/Exams Free Text/Narrative Re-Assessment/Exam: 06/19/18 00:10 results discussed with pt. Departure - Departure Time of Disposition: 00:10 Disposition: Home, Self-Care 01 Condition: Good Clinical Impression: Acute bronchospasm Exacerbation of asthma Qualifiers: Asthma severity: moderate Asthma persistence: unspecified Qualified Code(s): J45.901 - Unspecified asthma with (acute) exacerbation - Discharge Information Instructions: Bronchospasm, Adult, [id number] Forms: ED Department Discharge Additional Instructions: 1) continue nebs 2) don't sleep flat at night 3) follow up at clinic or recheck as needed rx given; phenergan codeine syrup qid prn x 4 oz - My Orders Last 24 Hours: My Active Orders 06/18/18 22:55 RT Aerosol Therapy [RC] ASDIRECTED - Assessment/Plan Last 24 Hours: My Active Orders 06/18/18 22:55 RT Aerosol Therapy [RC] ASDIRECTED
[2018-06-18] MEDS ORDERED: Codeine/Promethazine 10-6.25 MG/5 ML Syrup 5 ML UD Cup ONE (23:51)
== END 2018-06-19 00:28 | disposition home or self-care (01) ==
LOC: DL.ED 21:41
DX: J45.901 Unspecified asthma with (acute) exacerbation (principal); K21.9 Gastro-esophageal reflux disease without esophagitis; E03.9 Hypothyroidism, unspecified; Z79.899 Other long term (current) drug therapy; Z91.040 Latex allergy status; Z91.09 Other allergy status, other than to drugs and biological substances; Z91.018 Allergy to other foods
CPT/HCPCS: 71046; 94640; 96374; 99285; A9270; J2930; J7620-GY

== ENCOUNTER 2018-07-10 08:53 | Emergency (ER) | payer MEDICAID ==
--- NOTE | 2018-07-10 09:05 | EDM.PDOC ---
ED HPI GENERAL MEDICAL PROBLEM - General Chief Complaint: Respiratory Problem Stated Complaint: CONGESTION IN CHEST, CAN'T CATCH BREATH Time Seen by Provider: 07/10/18 09:04 Source of Information: Reports: Patient, Old Records, RN, RN Notes Reviewed History Limitations: Reports: No Limitations - History of Present Illness INITIAL COMMENTS - FREE TEXT/NARRATIVE: Pt arrives from home by POV with c/o cough, wheezing, and "bronchospasm". Pt denies fever, chills, or productive cough. She states that she used her albuterol nebulizer 4 times since midnight and was still coughing and wheezing, so she decided to come to the ER. Pt reports Hx of asthma, bronchitis, environmental allergies, and recurrent cough. She continues to smoke 1/2 PPD of cigarettes. Duration: Chronic, Constant, Recurring Location: Reports: Chest Quality: Reports: Other (denies pain) Severity: Severe Improves with: Reports: None Worsens with: Reports: Breathing Associated Symptoms: Reports: No Other Symptoms - Related Data Allergies Allergy/AdvReac Type Severity Reaction Status Date / Time latex Allergy Hives Verified 07/10/18 09:02 soap Allergy Rash Verified 07/10/18 09:02 harvest molds Allergy Cannot Uncoded 06/18/18 22:47 Remember seasonal Allergy Difficulty Uncoded 06/18/18 22:47 Breathing Home Meds: Home Meds Albuterol [IJD: Ventolin HFA] 2 puff INH QID PRN 03/26/17 [History] Ipratropium/Albuterol Sulfate [Iprat-Albut 0.5-3(2.5) mg/3 ml] 3 ml NEB Q4HR PRN 03/26/17 [History] Amitriptyline [Elavil] 25 mg PO BEDTIME 01/27/18 [History] Eletriptan HBr [Relpax] 20 mg PO DAILY PRN 01/27/18 [History] Ferrous Sulfate [Iron] 325 mg PO BEDTIME 01/27/18 [History] Fluticasone/Salmeterol [Advair 250-50 Diskus] 1 puff INH BID 01/27/18 [History] Folic Acid 1 mg PO DAILY 01/27/18 [History] Levothyroxine [Synthroid] 350 mcg PO ACBREAKFAST 01/27/18 [History] Multivitamin [One Daily Multivitamin] 1 tab PO DAILY 01/27/18 [History] buPROPion HCl [Wellbutrin Xl] 300 mg PO DAILY 01/27/18 [History] Levocetirizine Dihydrochloride 5 mg PO BEDTIME 07/10/18 [History] Montelukast [Singulair] 10 mg PO DAILY 07/10/18 [History] Sertraline [Zoloft] 100 mg PO DAILY 07/10/18 [History] Tiotropium [Spiriva Handihaler] 1 cap INH DAILY 07/10/18 [History] Topiramate 25 mg PO DAILY PRN 07/10/18 [History] Past Medical History - Past Health History Medical/Surgical History: Denies Medical/Surgical History HEENT History: Reports: None Cardiovascular History: Reports: None Respiratory History: Reports: Asthma, Bronchitis, Recurrent, Pneumonia, Recurrent Gastrointestinal History: Reports: GERD Genitourinary History: Reports: None 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: Reports: 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 Other 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: times 3 Musculoskeletal History: Reports: None Neurological History: Reports: Migraines Psychiatric History: Reports: Anxiety, Depression, Learning Disability Endocrine/Metabolic History: Reports: Hypothyroidism, Obesity/BMI 30+ Hematologic History: Reports: None, Anemia Immunologic History: Reports: None Oncologic (Cancer) History: Reports: None Dermatologic History: Reports: None - Infectious Disease History Infectious Disease History: Reports: Chicken Pox - Past Surgical History Head Surgeries/Procedures: Reports: None HEENT Surgical History: Reports: None Female Surgical History: Reports: None Social & Family History - Family History Family Medical History: Noncontributory - Tobacco Use Smoking Status *Q: Current Every Day Smoker Tobacco Use Within Last Twelve Months: Cigarettes Packs/Tins Daily: 0.5 Smoking Cessation Information Provided To Patient: Patient Refused Second Hand Smoke Exposure: Yes Second Hand Smoke Education Provided: Patient Refused - Caffeine Use Caffeine Use: Reports: Soda - Living Situation & Occupation Living situation: Reports: with Family ED ROS GENERAL - Review of Systems Review Of Systems: ROS reveals no pertinent complaints other than HPI. ED EXAM, GENERAL - Physical Exam Exam: See Below Exam Limited By: No Limitations General Appearance: Alert, No Apparent Distress, Obese Eye Exam: Bilateral Eye: Normal Inspection Nose: No Blood, Other (mild-mod. nasal congestion) Throat/Mouth: Normal Inspection, Normal Lips, Normal Oropharynx, Normal Voice, No Airway Compromise Head: Atraumatic, Normocephalic Neck: Normal Inspection, Supple, Non-Tender, Full Range of Motion. No: Lymphadenopathy (L), Lymphadenopathy (R) Respiratory/Chest: No Respiratory Distress, No Accessory Muscle Use, Chest Non- Tender, Decreased Breath Sounds, Crackles, Wheezing (occasional mild expiratory wheezes), Stridor. No: Rales, Rhonchi, Pleural Rub Cardiovascular: Regular Rate, Rhythm, No Edema Extremities: Normal Inspection, Non-Tender, No Pedal Edema. No: Xochitl's Sign Neurological: Alert, Oriented, Normal Cognition, Normal Gait, No Motor/Sensory Deficits Psychiatric: Normal Affect, Normal Mood Skin Exam: Warm, Dry, Intact, Normal Color, No Rash Course - Vital Signs Last Recorded V/S: Last Vital Signs Temp 36.3 C 07/10/18 08:59 Pulse 98 07/10/18 08:59 Resp 22 H 07/10/18 08:59 BP 131/80 07/10/18 08:59 Pulse Ox 98 07/10/18 08:59 - Orders/Labs/Meds Orders: Active Orders 24 hr Category Date Time Status Peripheral IV Care [RC] . DIRECTED Care 07/10/18 09:11 Active Sodium Chloride 0.9% [Saline Flush] Med 07/10/18 09:11 Active 10 ml FLUSH ASDIRECTED PRN Peripheral IV Insertion Adult [OM.PC] Stat Oth 07/10/18 09:11 Ordered Medication Orders Sodium Chloride (Saline Flush) 10 ml FLUSH ASDIRECTED PRN PRN Reason: Keep Vein Open Last Admin: 07/10/18 09:20 Dose: 10 ml Labs: Laboratory Tests 07/10/18 Range/Units 09:38 WBC 8.5 (5.0-10.0) 10^3/uL RBC 5.41 H (4.2-5.4) 10^6/uL Hgb 11.8 L D (12.0-16.0) g/dL Hct 38.3 (37.0-47.0) % MCV 70.8 L D (80-100) fL MCH 21.8 L (27.0-34.0) pg MCHC 30.8 L (33.0-35.0) g/dL Plt Count 404 D (150-450) 10^3/uL Neut % (Auto) 62.4 (42.2-75.2) % Lymph % (Auto) 24.8 (20.5-50.1) % [place] % (Auto) 6.4 (2-8) % Eos % (Auto) 5.8 H (1.0-3.0) % Baso % (Auto) 0.6 (0.0-1.0) % Meds: Medications Generic Name Dose Route Start Last Admin Trade Name Freq PRN Reason Stop Dose Admin Sodium Chloride 10 ml 07/10/18 09:11 07/10/18 09:20 Saline Flush FLUSH 10 ml ASDIRECTED PRN Administration Keep Vein Open Discontinued Medications Generic Name Dose Route Start Last Admin Trade Name Freq PRN Reason Stop Dose Admin Benzonatate 200 mg 07/10/18 09:12 07/10/18 09:29 Tessalon Perles PO 07/10/18 09:13 200 mg ONETIME ONE Administration Methylprednisolone Sodium Succinate 125 mg 07/10/18 09:11 07/10/18 09:29 Solu-Medrol IVPUSH 07/10/18 09:12 125 mg ONETIME ONE Administration - Re-Assessments/Exams Free Text/Narrative Re-Assessment/Exam: 07/10/18 09:38 Pt afebrile, and denies recent fevers. Hx of asthma, with current non- productive cough. I find no indication for chest x-ray at this time. Very low likelihood of bacterial pneumonia, P.E., or influenza given Hx, exam, and lab findings. Departure - Departure Time of Disposition: 09:40 Disposition: Home, Self-Care 01 Condition: Good Clinical Impression: Bronchitis, Acute bronchospasm, History of asthma - Discharge Information *PRESCRIPTION DRUG MONITORING PROGRAM REVIEWED*: No *COPY OF PRESCRIPTION DRUG MONITORING REPORT IN PATIENT NATASHA: No Instructions: Acute Bronchitis, Adult, [id number], Bronchospasm, Adult, Easy- to-Read Forms: ED Department Discharge Additional Instructions: Continue nebulizer treatments every 4 hours as needed. Rx: Prednisone 20mg Rx: Tessalon Perles 200mg Avoid smoking, and smoke/chemical/dust/irritant exposure. Follow up in clinic in 3 to 4 days for recheck. - My Orders Last 24 Hours: My Active Orders 07/10/18 09:11 Peripheral IV Care [RC] . DIRECTED Sodium Chloride 0.9% [Saline Flush] 10 ml FLUSH ASDIRECTED PRN Peripheral IV Insertion Adult [OM.PC] Stat - Assessment/Plan Last 24 Hours: My Active Orders 07/10/18 09:11 Peripheral IV Care [RC] . DIRECTED Sodium Chloride 0.9% [Saline Flush] 10 ml FLUSH ASDIRECTED PRN Peripheral IV Insertion Adult [OM.PC] Stat
[2018-07-10] MEDS ORDERED: Sodium Chloride 0.9% 10 ML Syringe FLUSH PRN (09:11)
[2018-07-10] MEDS ORDERED: methylPREDNISolone Sodium Succinate 125 MG/2 ML SDV IVPUSH ONE (09:11)
[2018-07-10] MEDS ORDERED: Benzonatate 100 MG Cap PO ONE (09:12)
[2018-07-10 09:36] VITALS: BP 131/80
== END 2018-07-10 09:59 | disposition home or self-care (01) ==
LOC: DL.ED 08:53
DX: J20.9 Acute bronchitis, unspecified (principal); J45.909 Unspecified asthma, uncomplicated; E66.9 Obesity, unspecified; F17.210 Nicotine dependence, cigarettes, uncomplicated; Z91.040 Latex allergy status
CPT/HCPCS: 36415; 85025; 96374; 99283; A9270; J2930; J7050

== ENCOUNTER 2018-10-15 09:41 | Emergency (ER) | payer MEDICAID ==
--- NOTE | 2018-10-15 09:46 | EDM.PDOC ---
ED HPI GENERAL MEDICAL PROBLEM - General Chief Complaint: ENT Problem Stated Complaint: SORE THROAT [id number] Time Seen by Provider: 10/15/18 09:45 Source of Information: Reports: Patient, RN, RN Notes Reviewed History Limitations: Reports: No Limitations - History of Present Illness INITIAL COMMENTS - FREE TEXT/NARRATIVE: Pt presents to ER with c/o sore throat x1 week. She denies fever, chills, cough , or abdominal pain. No known sick contacts. Duration: Week(s): (1) Location: Reports: Other (Throat) Severity: Moderate Improves with: Reports: None Worsens with: Reports: None Associated Symptoms: Reports: No Other Symptoms - Related Data Allergies Allergy/AdvReac Type Severity Reaction Status Date / Time hydrocodone Allergy Hives Verified 10/05/18 20:57 latex Allergy Hives Verified 10/05/18 20:57 soap Allergy Rash Verified 10/05/18 20:57 harvest molds Allergy Cannot Uncoded 07/20/18 20:21 Remember seasonal Allergy Difficulty Uncoded 07/20/18 20:21 Breathing Home Meds: Home Meds Albuterol [IJD: Ventolin HFA] 2 puff INH QID PRN 03/26/17 [History] Ipratropium/Albuterol Sulfate [Iprat-Albut 0.5-3(2.5) mg/3 ml] 3 ml NEB Q4HR PRN 03/26/17 [History] Eletriptan HBr [Relpax] 20 mg PO DAILY PRN 01/27/18 [History] Ferrous Sulfate [Iron] 325 mg PO BEDTIME 01/27/18 [History] Fluticasone/Salmeterol [Advair 250-50 Diskus] 1 puff INH BID 01/27/18 [History] Levothyroxine [Synthroid] 350 mcg PO ACBREAKFAST 01/27/18 [History] Multivitamin [One Daily Multivitamin] 1 tab PO DAILY 01/27/18 [History] Levocetirizine Dihydrochloride 5 mg PO BEDTIME 07/10/18 [History] Montelukast [Singulair] 10 mg PO DAILY 07/10/18 [History] Tiotropium [Spiriva Handihaler] 1 cap INH DAILY 07/10/18 [History] Topiramate 25 mg PO DAILY PRN 07/10/18 [History] Folic Acid 1 mg PO DAILY 09/21/18 [History] Past Medical History - Past Health History Medical/Surgical History: Denies Medical/Surgical History HEENT History: Reports: Impaired Vision Cardiovascular History: Reports: None Respiratory History: Reports: Asthma, Bronchitis, Recurrent, Pneumonia, Recurrent Gastrointestinal History: Reports: Cholelithiasis, GERD Genitourinary History: Reports: None 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 Other CLUB CONCIERGE History: times 3 Musculoskeletal History: Reports: None Neurological History: Reports: Migraines Psychiatric History: Reports: Anxiety, Depression, Learning Disability Endocrine/Metabolic History: Reports: Hypothyroidism, Obesity/BMI 30+ Hematologic History: Reports: Anemia Immunologic History: Reports: None Oncologic (Cancer) History: Reports: None Dermatologic History: Reports: None - Infectious Disease History Infectious Disease History: Reports: Chicken Pox - Past Surgical History Head Surgeries/Procedures: Reports: None HEENT Surgical History: Reports: None, Oral Surgery GI Surgical History: Reports: Cholecystectomy Female Surgical History: Reports: None Social & Family History - Family History Family Medical History: Noncontributory - Caffeine Use Caffeine Use: Reports: Coffee, Soda - Living Situation & Occupation Living situation: Reports: with Family ED ROS ENT - Review of Systems Review Of Systems: ROS reveals no pertinent complaints other than HPI. ED EXAM, ENT - Physical Exam Exam: See Below Exam Limited By: No Limitations General Appearance: Alert, WD/WN, No Apparent Distress, Obese Eye Exam: Bilateral Eye: Normal Inspection Ears: Normal External Exam, Normal Canal, Hearing Grossly Normal, Normal TMs Nose: Normal Inspection, Normal Mucousa, No Blood Mouth/Throat: Normal Gums, Normal Lips, Normal Teeth, Pharyngeal Erythema, Tonsillar Erythema, Tonsillar Swelling. No: Tonsillar Exudates Head: Atraumatic, Normocephalic Neck: Supple, Full Range of Motion, Lymphadenopathy (L), Lymphadenopathy (R) Respiratory/Chest: No Respiratory Distress, Lungs Clear, Normal Breath Sounds, No Accessory Muscle Use, Chest Non-Tender Cardiovascular: Regular Rate, Rhythm GI/Abdominal: Normal Bowel Sounds, Soft, Non-Tender, No Distention Back: Normal Inspection Extremities: Normal Inspection Neurological: Alert, Oriented, No Motor/Sensory Deficits Psychiatric: Normal Mood Skin: Warm, Dry, Intact, Normal Color, No Rash Course - Vital Signs Last Recorded V/S: Last Vital Signs Temp 36.6 C 10/15/18 09:50 Pulse 90 10/15/18 09:50 Resp 18 10/15/18 09:50 BP 152/80 H 10/15/18 09:50 Pulse Ox 99 10/15/18 09:50 - Orders/Labs/Meds Orders: Active Orders 24 hr Category Date Time Status CULTURE STREP A CONFIRMATION [RM] Stat Lab 10/15/18 10:02 Results STREP SCRN A RAPID W CULT CONF [RM] Stat Lab 10/15/18 10:02 Results Departure - Departure Time of Disposition: 10:23 Disposition: Home, Self-Care 01 Condition: Good Clinical Impression: Tonsillitis Pharyngitis Qualifiers: Pharyngitis/tonsillitis etiology: other specified organisms Qualified Code(s): J02.8 - Acute pharyngitis due to other specified organisms - Discharge Information *PRESCRIPTION DRUG MONITORING PROGRAM REVIEWED*: Not Applicable *COPY OF PRESCRIPTION DRUG MONITORING REPORT IN PATIENT NATASHA: Not Applicable Instructions: Tonsillitis, [id number], Pharyngitis Forms: ED Department Discharge Additional Instructions: Rx: Doxycycline 100mg Frequent saltwater gargles until improved. Follow up in clinic if not improving in 1 week. - My Orders Last 24 Hours: My Active Orders 10/15/18 10:02 CULTURE STREP A CONFIRMATION [RM] Stat STREP SCRN A RAPID W CULT CONF [RM] Stat - Assessment/Plan Last 24 Hours: My Active Orders 10/15/18 10:02 CULTURE STREP A CONFIRMATION [RM] Stat STREP SCRN A RAPID W CULT CONF [RM] Stat
[2018-10-15 10:24] VITALS: BP 152/80
== END 2018-10-15 10:31 | disposition home or self-care (01) ==
LOC: DL.ED 09:41
DX: J03.90 Acute tonsillitis, unspecified (principal); E03.9 Hypothyroidism, unspecified; J45.909 Unspecified asthma, uncomplicated; F41.9 Anxiety disorder, unspecified; F32.9 Major depressive disorder, single episode, unspecified; Z88.5 Allergy status to narcotic agent; Z91.040 Latex allergy status; Z88.8 Allergy status to other drugs, medicaments and biological substances; Z79.899 Other long term (current) drug therapy
CPT/HCPCS: 87081; 87430; 99283

== ENCOUNTER 2018-10-27 19:13 | Emergency (ER) | payer MEDICAID ==
[2018-10-27 19:30] VITALS: BP 134/73
--- NOTE | 2018-10-27 21:37 | EDM.PDOC ---
ED HPI GENERAL MEDICAL PROBLEM - General Chief Complaint: ENT Problem Stated Complaint: HEADACHE, EAR PAIN Time Seen by Provider: 10/27/18 21:36 Source of Information: Reports: Patient, RN, RN Notes Reviewed History Limitations: Reports: No Limitations - History of Present Illness INITIAL COMMENTS - FREE TEXT/NARRATIVE: Pt to ER with c/o migraine headache all day as well as pain in the ears. She states the pain in the ears has been an ongoing thing and she has not been able to get into her primary care provider. Patient admits to pain in the eyes, light and sound sensitivity. States she has had a stuffy nose recently. Denies sore throat, nausea or vomiting. She states she thinks she may have had a fever today. Denies diarrhea. Onset: Gradual Headache Pain Score (Numeric/FACES): 5 - Related Data Allergies Allergy/AdvReac Type Severity Reaction Status Date / Time hydrocodone Allergy Hives Verified 10/27/18 19:30 latex Allergy Hives Verified 10/27/18 19:30 soap Allergy Rash Verified 10/27/18 19:30 harvest molds Allergy Cannot Uncoded 10/27/18 19:30 Remember seasonal Allergy Difficulty Uncoded 10/27/18 19:30 Breathing Home Meds: Home Meds Albuterol [IJD: Ventolin HFA] 2 puff INH QID PRN 03/26/17 [History] Ipratropium/Albuterol Sulfate [Iprat-Albut 0.5-3(2.5) mg/3 ml] 3 ml NEB Q4HR PRN 03/26/17 [History] Eletriptan HBr [Relpax] 20 mg PO DAILY PRN 01/27/18 [History] Ferrous Sulfate [Iron] 325 mg PO BEDTIME 01/27/18 [History] Fluticasone/Salmeterol [Advair 250-50 Diskus] 1 puff INH BID 01/27/18 [History] Levothyroxine [Synthroid] 350 mcg PO ACBREAKFAST 01/27/18 [History] Multivitamin [One Daily Multivitamin] 1 tab PO DAILY 01/27/18 [History] Levocetirizine Dihydrochloride 5 mg PO BEDTIME 07/10/18 [History] Montelukast [Singulair] 10 mg PO DAILY 07/10/18 [History] Tiotropium [Spiriva Handihaler] 1 cap INH DAILY 07/10/18 [History] Topiramate 25 mg PO DAILY PRN 07/10/18 [History] Folic Acid 1 mg PO DAILY 09/21/18 [History] Past Medical History - Past Health History Medical/Surgical History: Denies Medical/Surgical History HEENT History: Reports: Impaired Vision Cardiovascular History: Reports: None Respiratory History: Reports: Asthma, Bronchitis, Recurrent, Pneumonia, Recurrent, Sleep Apnea Gastrointestinal History: Reports: Cholelithiasis, GERD Genitourinary History: Reports: None 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: times 3 Musculoskeletal History: Reports: None Neurological History: Reports: Migraines Psychiatric History: Reports: Anxiety, Depression, Learning Disability Endocrine/Metabolic History: Reports: Hypothyroidism, Obesity/BMI 30+ Hematologic History: Reports: Anemia Immunologic History: Reports: None Oncologic (Cancer) History: Reports: None Dermatologic History: Reports: None - Infectious Disease History Infectious Disease History: Reports: Chicken Pox - Past Surgical History Head Surgeries/Procedures: Reports: None HEENT Surgical History: Reports: None, Oral Surgery GI Surgical History: Reports: Cholecystectomy Female Surgical History: Reports: None Social & Family History - Family History Family Medical History: Noncontributory - Tobacco Use Smoking Status *Q: Current Every Day Smoker Years of Tobacco use: 1 Packs/Tins Daily: 0.5 Second Hand Smoke Exposure: Yes - Caffeine Use Caffeine Use: Reports: Coffee, Soda - Recreational Drug Use Recreational Drug Use: No - Living Situation & Occupation Living situation: Reports: with Family ED ROS ENT - Review of Systems Review Of Systems: ROS reveals no pertinent complaints other than HPI. ED EXAM, ENT - Physical Exam Exam: See Below Exam Limited By: No Limitations General Appearance: Alert, WD/WN, No Apparent Distress Eye Exam: Bilateral Eye: EOMI, Normal Inspection Ears: Normal External Exam, Hearing Grossly Normal Nose: Normal Inspection Mouth/Throat: Normal Inspection, Normal Gums, Normal Lips, Normal Oropharynx, Normal Teeth Head: Atraumatic, Normocephalic Neck: Normal Inspection, Supple, Non-Tender, Full Range of Motion Respiratory/Chest: No Respiratory Distress, Lungs Clear, Normal Breath Sounds, No Accessory Muscle Use, Chest Non-Tender Cardiovascular: Normal Peripheral Pulses, Regular Rate, Rhythm, No Edema, No Gallop, No JVD, No Murmur, No Rub GI/Abdominal: Normal Bowel Sounds, Soft, Non-Tender (Female) Exam: Deferred Rectal (Female) Exam: Deferred Back: Normal Inspection, Full Range of Motion Extremities: Normal Inspection, Normal Range of Motion, Non-Tender, No Pedal Edema, Normal Capillary Refill Neurological: Alert, Oriented, CN II-XII Intact, Normal Cognition, Normal Gait, Normal Reflexes, No Motor/Sensory Deficits Psychiatric: Normal Affect, Normal Mood Skin: Warm, Dry, Intact, Normal Color, No Rash Lymphatic: No Adenopathy Course - Vital Signs Last Recorded V/S: Last Vital Signs Temp 99 F 10/27/18 19:27 Pulse 127 H 10/27/18 19:27 Resp 18 10/27/18 19:27 BP 134/73 10/27/18 19:27 Pulse Ox 97 10/27/18 19:27 - Orders/Labs/Meds Meds: Medications Discontinued Medications Generic Name Dose Route Start Last Admin Trade Name Freq PRN Reason Stop Dose Admin Diphenhydramine HCl 50 mg 10/27/18 21:49 10/27/18 22:07 Benadryl PO 10/27/18 21:50 50 mg ONETIME ONE Administration Ketorolac Tromethamine 60 mg 10/27/18 21:49 Toradol IVPUSH 10/27/18 21:50 ONETIME ONE Ketorolac Tromethamine 60 mg 10/27/18 21:56 10/27/18 22:06 Toradol IM 10/27/18 21:57 60 mg ONETIME ONE Administration Departure - Departure Time of Disposition: 22:13 Disposition: Home, Self-Care 01 Condition: Fair Clinical Impression: Tympanic membrane inflammation Migraine Qualifiers: Migraine type: unspecified Status migrainosus presence: without status migrainosus Intractability: not intractable Qualified Code(s): G43.909 - Migraine, unspecified, not intractable, without status migrainosus - Discharge Information *PRESCRIPTION DRUG MONITORING PROGRAM REVIEWED*: No *COPY OF PRESCRIPTION DRUG MONITORING REPORT IN PATIENT NATASHA: No Instructions: Migraine Headache, [id number] Forms: ED Department Discharge Additional Instructions: Drink plenty of water RX: Flonase May use over the counter decongestant May use Tylenol and/or ibuprofen as directed for pain Follow up with your primary care facility for referral to ENT
[2018-10-27] MEDS ORDERED: diphenhydrAMINE 50 MG Cap PO ONE (21:49)
[2018-10-27] MEDS ORDERED: Ketorolac 30 MG/ML SDV IVPUSH ONE (21:49)
[2018-10-27] MEDS ORDERED: Ketorolac 30 MG/ML SDV IM ONE (21:56)
== END 2018-10-27 22:18 | disposition home or self-care (01) ==
LOC: DL.ED 19:13
DX: G43.909 Migraine, unspecified, not intractable, without status migrainosus (principal); H73.23 Unspecified myringitis, bilateral; F17.210 Nicotine dependence, cigarettes, uncomplicated; E66.9 Obesity, unspecified; Z88.8 Allergy status to other drugs, medicaments and biological substances; Z91.040 Latex allergy status; Z79.899 Other long term (current) drug therapy
CPT/HCPCS: 96372; 99283; J1885; Q0163

== ENCOUNTER 2018-10-31 10:24 | Emergency (ER) | payer MEDICAID ==
[2018-10-31 10:44] VITALS: BP 117/80
[2018-10-31] MEDS ORDERED: Albuterol/Ipratropium 3.0-0.5 MG/3 ML Neb Soln NEB ONE (10:53)
--- NOTE | 2018-10-31 11:12 | EDM.PDOC ---
Scribed by Hope Prieto 10/31/18 1112 for Saundra Gomes NP ED HPI GENERAL MEDICAL PROBLEM - General Chief Complaint: Respiratory Problem Stated Complaint: hard to breath Time Seen by Provider: 10/31/18 10:40 Source of Information: Reports: Patient, RN, RN Notes Reviewed History Limitations: Reports: No Limitations - History of Present Illness INITIAL COMMENTS - FREE TEXT/NARRATIVE: Patient states she was outside [place] the [employer] [place] from 8 a.m. to 1 p.m. She feels short of breath specially with exertion. She has a non-productive cough and chills, head and has taken Tylenol, DayQuil, Nyquil and migraine meds. She did an Albuterol inhaler and Advair, Spiriva and Albuterol nebs and nothing helped. She has decreased appetite. She has an aunt with pneumonia. She also has watery eyes. She has had chest pain mid since yesterday constant without radiation and worse with cold air and laying down. No fever, nausea or vomiting. She is a smoker. She has no sore throat. Onset Date: 10/30/18 Duration: Getting Worse Location: Reports: Chest Quality: Reports: Ache Severity: Moderate Improves with: Reports: None Worsens with: Reports: None Associated Symptoms: Reports: No Other Symptoms Treatments [employer]: Reports: Acetaminophen, Breathing Treatments - Related Data Allergies Allergy/AdvReac Type Severity Reaction Status Date / Time hydrocodone Allergy Hives Verified 10/31/18 10:39 latex Allergy Hives Verified 10/31/18 10:39 soap Allergy Rash Verified 10/31/18 10:39 harvest molds Allergy Cannot Uncoded 10/31/18 10:39 Remember seasonal Allergy Difficulty Uncoded 10/31/18 10:39 Breathing Home Meds: Home Meds Albuterol [IJD: Ventolin HFA] 2 puff INH QID PRN 03/26/17 [History] Ipratropium/Albuterol Sulfate [Iprat-Albut 0.5-3(2.5) mg/3 ml] 3 ml NEB Q4HR PRN 03/26/17 [History] Eletriptan HBr [Relpax] 20 mg PO DAILY PRN 01/27/18 [History] Ferrous Sulfate [Iron] 325 mg PO BEDTIME 01/27/18 [History] Fluticasone/Salmeterol [Advair 250-50 Diskus] 1 puff INH BID 01/27/18 [History] Levothyroxine [Synthroid] 350 mcg PO ACBREAKFAST 01/27/18 [History] Multivitamin [One Daily Multivitamin] 1 tab PO DAILY 01/27/18 [History] Levocetirizine Dihydrochloride 5 mg PO BEDTIME 07/10/18 [History] Montelukast [Singulair] 10 mg PO DAILY 07/10/18 [History] Tiotropium [Spiriva Handihaler] 1 cap INH DAILY 07/10/18 [History] Topiramate 25 mg PO DAILY PRN 07/10/18 [History] Folic Acid 1 mg PO DAILY 09/21/18 [History] Past Medical History - Past Health History Medical/Surgical History: Denies Medical/Surgical History HEENT History: Reports: Impaired Vision Cardiovascular History: Reports: None Respiratory History: Reports: Asthma, Bronchitis, Recurrent, Pneumonia, Recurrent, Sleep Apnea Gastrointestinal History: Reports: Cholelithiasis, GERD Genitourinary History: Reports: None 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 History: times 3 Musculoskeletal History: Reports: None Neurological History: Reports: Migraines Psychiatric History: Reports: Anxiety, Depression, Learning Disability Endocrine/Metabolic History: Reports: Hypothyroidism, Obesity/BMI 30+ Hematologic History: Reports: Anemia Immunologic History: Reports: None Oncologic (Cancer) History: Reports: None Dermatologic History: Reports: None - Infectious Disease History Infectious Disease History: Reports: Chicken Pox - Past Surgical History Head Surgeries/Procedures: Reports: None HEENT Surgical History: Reports: None, Oral Surgery GI Surgical History: Reports: Cholecystectomy Female Surgical History: Reports: None Social & Family History - Family History Family Medical History: Noncontributory - Caffeine Use Caffeine Use: Reports: Coffee, Soda - Living Situation & Occupation Living situation: Reports: with Family ED ROS GENERAL - Review of Systems Review Of Systems: ROS reveals no pertinent complaints other than HPI. ED EXAM, GENERAL - Physical Exam Exam: See Below Exam Limited By: No Limitations General Appearance: Alert, WD/WN, No Apparent Distress Eye Exam: Bilateral Eye: EOMI, Normal Inspection, PERRL Ears: Normal External Exam, Normal Canal, Hearing Grossly Normal, Normal TMs Nose: Normal Inspection, Normal Mucosa, No Blood Throat/Mouth: Other (pharynx erythema) Head: Atraumatic, Normocephalic Neck: Other (no lymphadenopathy) Respiratory/Chest: No Respiratory Distress, Lungs Clear, Normal Breath Sounds, No Accessory Muscle Use, Chest Non-Tender Cardiovascular: Normal Peripheral Pulses, Regular Rate, Rhythm, No Edema, No Gallop, No JVD, No Murmur, No Rub GI/Abdominal: Normal Bowel Sounds, Soft, Non-Tender (Female) Exam: Deferred Rectal (Female) Exam: Deferred Back Exam: Normal Inspection, Full Range of Motion, NT Extremities: Normal Inspection, Normal Range of Motion, Non-Tender, Normal Capillary Refill, No Pedal Edema Neurological: Alert, Oriented, CN II-XII Intact, Normal Cognition, Normal Gait, Normal Reflexes, No Motor/Sensory Deficits Psychiatric: Normal Affect, Normal Mood Skin Exam: Warm, Dry, Intact, Normal Color, No Rash Course - Vital Signs Last Recorded V/S: Last Vital Signs Temp 97.7 F 10/31/18 10:40 Pulse 90 10/31/18 10:40 Resp 18 10/31/18 10:40 BP 117/80 10/31/18 10:40 Pulse Ox 98 10/31/18 10:53 - Orders/Labs/Meds Orders: Active Orders 24 hr Category Date Time Status RT Aerosol Therapy [RC] ASDIRECTED Care 10/31/18 10:53 Active Meds: Medications Discontinued Medications Generic Name Dose Route Start Last Admin Trade Name Freq PRN Reason Stop Dose Admin Albuterol/Ipratropium 3 ml 10/31/18 10:53 10/31/18 10:59 Duoneb 3.0-0.5 Mg/3 Ml NEB 10/31/18 10:54 3 ml ONETIME ONE Administration Departure - Departure Time of Disposition: 11:11 Disposition: Home, Self-Care 01 Condition: Fair Clinical Impression: Bronchospasm with bronchitis, acute Exacerbation of asthma Qualifiers: Asthma severity: mild Asthma persistence: intermittent Qualified Code(s): J45.21 - Mild intermittent asthma with (acute) exacerbation - Discharge Information *PRESCRIPTION DRUG MONITORING PROGRAM REVIEWED*: No *COPY OF PRESCRIPTION DRUG MONITORING REPORT IN PATIENT NATASHA: No Instructions: Bronchospasm, Adult, Hydu-go-Iuoh, Acute Bronchitis, Adult, Easy- to-Read, Upper Respiratory Infection, Adult, [id number] Forms: ED Department Discharge Additional Instructions: RX: Prednisone, Tessalon Perles Continue using your nebulizers Follow up with your primary care facility - My Orders Last 24 Hours: My Active Orders 10/31/18 10:53 RT Aerosol Therapy [RC] ASDIRECTED - Assessment/Plan Last 24 Hours: My Active Orders 10/31/18 10:53 RT Aerosol Therapy [RC] ASDIRECTED I have read and agree with the documentation that has been completed regarding this visit. By signing this record, I attest that the documentation was completed in my physical presence and is an accurate record of the encounter.
== END 2018-10-31 11:15 | disposition home or self-care (01) ==
LOC: DL.ED 10:24
DX: J45.21 Mild intermittent asthma with (acute) exacerbation (principal); J20.9 Acute bronchitis, unspecified; K21.9 Gastro-esophageal reflux disease without esophagitis; F41.9 Anxiety disorder, unspecified; F32.9 Major depressive disorder, single episode, unspecified; E03.9 Hypothyroidism, unspecified; Z88.5 Allergy status to narcotic agent; Z91.040 Latex allergy status; Z88.8 Allergy status to other drugs, medicaments and biological substances; Z79.899 Other long term (current) drug therapy
CPT/HCPCS: 94640; 99284; J7620-GY

== ENCOUNTER 2018-11-21 20:26 | Inpatient (IN) | payer MEDICAID ==
[2018-11-21] MEDS ORDERED: Albuterol/Ipratropium 3.0-0.5 MG/3 ML Neb Soln NEB ONE (20:42)
[2018-11-21] MEDS ORDERED: methylPREDNISolone Sodium Succinate 125 MG/2 ML SDV IVPUSH ONE (20:42)
[2018-11-21 21:10] LABS: ANION GAP 13.6; CHLORIDE,CL 104 mmol/L (101-111); SODIUM,NA 135 mmol/L (135-145)
[2018-11-21] MEDS ORDERED: Benzonatate 100 MG Cap PO ONE (21:22)
[2018-11-21] MEDS ORDERED: Azithromycin 500 MG in Sodium Chloride 0.9% 250 ML IV ONE (21:52)
--- NOTE | 2018-11-21 21:57 | EDM.PDOC ---
ED HPI GENERAL MEDICAL PROBLEM - General Chief Complaint: Respiratory Problem Stated Complaint: MEDICINE ISN'T HELPING COUGH Time Seen by Provider: 11/21/18 20:40 Source of Information: Reports: Patient, RN Notes Reviewed - History of Present Illness INITIAL COMMENTS - FREE TEXT/NARRATIVE: ED with c/o severe cough and asthma. Coughing so hard today is incontinent. In clinic on Thursday started on Muccinex and prednisone. initially at onset cough productive green mucus. Since yesterday cough dry. Using nebs every 2 hours without relief. Smoker, Has required hospitalization in past when gets this bad. Prednisone dose per pharmacy listing 40mg daily for 5 days. Upper Chest Pain Score (Numeric/FACES): 4 - Related Data Allergies Allergy/AdvReac Type Severity Reaction Status Date / Time hydrocodone Allergy Hives Verified 11/21/18 21:23 latex Allergy Hives Verified 11/21/18 21:23 soap Allergy Rash Verified 11/21/18 21:23 harvest molds Allergy Cannot Uncoded 11/21/18 21:23 Remember seasonal Allergy Difficulty Uncoded 11/21/18 21:23 Breathing Home Meds: Home Meds Albuterol [IJD: Ventolin HFA] 2 puff INH QID PRN 03/26/17 [History] Ipratropium/Albuterol Sulfate [Iprat-Albut 0.5-3(2.5) mg/3 ml] 3 ml NEB Q4HR PRN 03/26/17 [History] Eletriptan HBr [Relpax] 20 mg PO DAILY PRN 01/27/18 [History] Ferrous Sulfate [Iron] 325 mg PO BEDTIME 01/27/18 [History] Fluticasone/Salmeterol [Advair 250-50 Diskus] 1 puff INH BID 01/27/18 [History] Levothyroxine [Synthroid] 350 mcg PO ACBREAKFAST 01/27/18 [History] Multivitamin [One Daily Multivitamin] 1 tab PO DAILY 01/27/18 [History] Levocetirizine Dihydrochloride 5 mg PO BEDTIME 07/10/18 [History] Montelukast [Singulair] 10 mg PO DAILY 07/10/18 [History] Tiotropium [Spiriva Handihaler] 1 cap INH DAILY 07/10/18 [History] Topiramate 25 mg PO DAILY PRN 07/10/18 [History] Folic Acid 1 mg PO DAILY 09/21/18 [History] Past Medical History - Past Health History Medical/Surgical History: Denies Medical/Surgical History HEENT History: Reports: Impaired Vision Cardiovascular History: Reports: None Respiratory History: Reports: Asthma, Bronchitis, Recurrent, Pneumonia, Recurrent, Sleep Apnea Gastrointestinal History: Reports: Cholelithiasis, GERD Genitourinary History: Reports: None 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 3 Musculoskeletal History: Reports: None Neurological History: Reports: Migraines Psychiatric History: Reports: Anxiety, Depression, Learning Disability Endocrine/Metabolic History: Reports: Hypothyroidism, Obesity/BMI 30+ Hematologic History: Reports: Anemia Immunologic History: Reports: None Oncologic (Cancer) History: Reports: None Dermatologic History: Reports: None - Infectious Disease History Infectious Disease History: Reports: Chicken Pox - Past Surgical History Head Surgeries/Procedures: Reports: None HEENT Surgical History: Reports: Oral Surgery GI Surgical History: Reports: Cholecystectomy Female Surgical History: Reports: None Social & Family History - Family History Family Medical History: Noncontributory - Tobacco Use Smoking Status *Q: Current Every Day Smoker Years of Tobacco use: 1 Packs/Tins Daily: 0.5 - Caffeine Use Caffeine Use: Reports: Coffee, Energy Drinks, Soda - Recreational Drug Use Recreational Drug Use: Yes Recreational Drug Type: Reports: Marijuana/Hashish - Living Situation & Occupation Living situation: Reports: with Family ED ROS GENERAL - Review of Systems Review Of Systems: ROS reveals no pertinent complaints other than HPI. ED EXAM, GENERAL - Physical Exam Exam: See Below Exam Limited By: No Limitations General Appearance: Alert, Mild Distress, Obese Ears: Normal External Exam Ear Exam: Bilateral Ear: TM normal Nose: Normal Inspection Throat/Mouth: Normal Inspection Head: Atraumatic, Normocephalic Neck: Normal Inspection Respiratory/Chest: Decreased Breath Sounds, Wheezing (inspiratory ), Other ( frequent harsh dry cough) Cardiovascular: Normal Peripheral Pulses, Regular Rate, Rhythm, Tachycardia GI/Abdominal: Normal Bowel Sounds Back Exam: Full Range of Motion Extremities: Normal Inspection Neurological: Alert, Oriented, Normal Cognition, No Motor/Sensory Deficits Psychiatric: Normal Affect, Normal Mood Skin Exam: Warm, Dry, Intact, Normal Color Course - Vital Signs Last Recorded V/S: Last Vital Signs Temp 35.8 C 11/21/18 20:37 Pulse 124 H 11/21/18 20:37 Resp 16 11/21/18 20:37 BP 114/67 11/21/18 20:37 Pulse Ox 92 L 11/21/18 21:25 - Orders/Labs/Meds Orders: Active Orders 24 hr Category Date Time Status RT Aerosol Therapy [RC] ASDIRECTED Care 11/21/18 20:43 Active CULTURE BLOOD [BC] Stat Lab 11/21/18 20:45 Received Azithromycin [Zithromax] 500 mg Med 11/21/18 21:52 Active Sodium Chloride 0.9% [Normal Saline] 250 ml IV ONETIME Medication Orders Azithromycin 500 mg/ Sodium (Chloride) 250 mls @ 250 mls/hr IV ONETIME ONE Stop: 11/21/18 22:51 Last Admin: 11/21/18 22:04 Dose: 250 mls/hr Labs: Laboratory Tests 11/21/18 11/21/18 11/21/18 Range/Units 20:45 20:45 20:45 WBC 14.9 H (5.0-10.0) 10^3/uL RBC 5.18 (4.2-5.4) 10^6/uL Hgb 11.3 L (12.0-16.0) g/dL Hct 37.0 (37.0-47.0) % MCV 71.4 L (80-100) fL MCH 21.8 L (27.0-34.0) pg MCHC 30.5 L (33.0-35.0) g/dL Plt Count 434 (150-450) 10^3/uL Neut % (Auto) 77.9 H (42.2-75.2) % Lymph % (Auto) 10.2 L (20.5-50.1) % [place] % (Auto) 10.7 H (2-8) % Eos % (Auto) 0.9 L (1.0-3.0) % Baso % (Auto) 0.3 (0.0-1.0) % Sodium 135 (135-145) mmol/L Potassium 3.6 (3.6-5.0) mmol/L Chloride 104 (101-111) mmol/L Carbon Dioxide 21.0 (21.0-31.0) mmol/L Anion Gap 13.6 BUN 13 (7-18) mg/dL Creatinine 0.7 (0.6-1.3) mg/dL Est Cr Clr Drug Dosing 109.78 mL/min Estimated GFR (MDRD) > 60 BUN/Creatinine Ratio 18.57 Glucose 106 H (74-105) mg/dL Lactic Acid 1.9 (0.5-2.2) mmol/L Calcium 8.6 (8.4-10.2) mg/dl Total Bilirubin 0.5 (0.2-1.0) mg/dL AST 21 (10-42) IU/L ALT 16 (10-60) IU/L Alkaline Phosphatase 88 (42-121) IU/L Total Protein 7.8 (6.7-8.2) g/dl Albumin 3.6 (3.2-5.5) g/dl Globulin 4.2 Albumin/Globulin Ratio 0.86 Meds: Medications Generic Name Dose Route Start Last Admin Trade Name Freq PRN Reason Stop Dose Admin Azithromycin 500 mg/ Sodium 250 mls @ 250 mls/hr 11/21/18 21:52 11/21/18 22: 04 Chloride IV 11/21/18 22:51 250 mls/hr ONETIME ONE Administration Discontinued Medications Generic Name Dose Route Start Last Admin Trade Name Freq PRN Reason Stop Dose Admin Albuterol/Ipratropium 3 ml 11/21/18 20:42 11/21/18 20:54 Duoneb 3.0-0.5 Mg/3 Ml NEB 11/21/18 20:43 3 ml ONETIME ONE Administration Benzonatate 200 mg 11/21/18 21:22 11/21/18 21:28 Tessalon Perles PO 11/21/18 21:23 200 mg ONETIME ONE Administration Methylprednisolone Sodium Succinate 125 mg 11/21/18 20:42 11/21/18 20:54 Solu-Medrol IVPUSH 11/21/18 20:43 125 mg ONETIME ONE Administration - Radiology Interpretation Free Text/Narrative:: [facility] Final Radiology Report Call: [phone] assistance Online chat: [email or web address] Name: HERMES WANG Age: 23Years F Date: 11/21/2018 SSN: -- : [id number] Study: XR CHEST 2 VIEWS Requesting Physician: KELECHI CHAMBERLAIN Images: 2 Addl Studies: Provided Clinical History: Contrast: Contrast Medium: Contrast Amount: Contrast Method: CONFIDENTIALITY STATEMENT This report is intended only for use by the referring physician, and only in accordance with law. If you received this in error, call [phone]. Page 1 of 1 EXAM: XR Chest, 2 Views EXAM DATE/TIME: 11/21/2018 8:49 PM CLINICAL HISTORY: 23 years old, female; Signs and symptoms; Cough TECHNIQUE: XR of the chest, 2 views. COMPARISON: CR Chest 2V 10/07/2018 3:52 PM FINDINGS: Lungs: Left lower lobe sublobar atelectasis or pneumonia. Right lung is clear. Pleural space: Unremarkable. No pleural effusion. No pneumothorax. Heart/Mediastinum: Unremarkable. No cardiomegaly. Bones/joints: Age appropriate. IMPRESSION: Left lower lobe sublobar atelectasis or pneumonia. This was not seen on October 07, 2018 and represents the only significant change from the radiograph. Thank you for allowing us to participate in the care of your patient. Dictated and Authenticated by: Anuj Evans MD 11/21/2018 9:36 PM Central Time ([place] & [place]) - Re-Assessments/Exams Free Text/Narrative Re-Assessment/Exam: 11/21/18 21:59 No change with neb, saturation 92%. Frequent dry cough. TC consult Dr Dinh [facility] Hospitalist, accepting for admission. Departure - Departure Time of Disposition: 22:03 Disposition: Admitted As Inpatient 68 Condition: Good Clinical Impression: Tobacco dependence Asthma exacerbation Qualifiers: Asthma severity: mild Asthma persistence: intermittent Qualified Code(s): J45.21 - Mild intermittent asthma with (acute) exacerbation LLL pneumonia Qualifiers: Pneumonia type: due to unspecified organism Qualified Code(s): J18.1 - Lobar pneumonia, unspecified organism - Discharge Information
--- NOTE | 2018-11-21 22:17 | PCM.HP ---
H&P History of Present Illness - General Date of Service: 11/21/18 Admit Problem/Dx: Admitted with: Increased shortness of Breath and Asthma Exacerbation secondary to Pneumonia Source of Information: Patient, EMS Notes Reviewed, Old Records, Other (ER provider) History Limitations: Reports: No Limitations - History of Present Illness Initial Comments - Free Text/Narative: This is a23 y.o.old femalewith a PMH of asthma, headaches, hypothyroidism, and PCOS, morbid obesity, Restricive Lung disease secondary to obesity, current smoker, who presents to the ED for evaluation increased shortness of breath and severe cough and Coughing so hard today is leading incontinent. she was seen In clinic on Thursday11/19/18) started on Muccinex 600 mg BID and prednisone 40 mg daily X 5 days initially at onset cough productive green mucus. Since yesterday cough dry. Using nebs every 2 hours without relief She Has required hospitalization in past when gets this bad. CXR showed Left lower lobe Atelectasis or Pneumonia. she is admitted for Asthma exacerbation. Onset of Symptoms: Reports: Gradual Associated Symptoms: Reports: Cough, cough w sputum Upper Chest Pain Score (Numeric/FACES): 4 - Related Data Allergies/Adverse Reactions: Allergies Allergy/AdvReac Type Severity Reaction Status Date / Time hydrocodone Allergy Hives Verified 11/21/18 22:28 latex Allergy Hives Verified 11/21/18 22:28 soap Allergy Rash Verified 11/21/18 22:28 harvest molds Allergy Cannot Uncoded 11/21/18 22:28 Remember seasonal Allergy Difficulty Uncoded 11/21/18 22:28 Breathing Home Medications: Home Meds Albuterol [IJD: Ventolin HFA] 2 puff INH QID PRN 03/26/17 [History] Ipratropium/Albuterol Sulfate [Iprat-Albut 0.5-3(2.5) mg/3 ml] 3 ml NEB Q4HR PRN 03/26/17 [History] Eletriptan HBr [Relpax] 20 mg PO DAILY PRN 01/27/18 [History] Ferrous Sulfate [Iron] 325 mg PO TID 01/27/18 [History] Fluticasone/Salmeterol [Advair 250-50 Diskus] 1 puff INH BID 01/27/18 [History] Levothyroxine [Synthroid] 350 mcg PO ACBREAKFAST 01/27/18 [History] Multivitamin [One Daily Multivitamin] 1 tab PO DAILY 01/27/18 [History] Levocetirizine Dihydrochloride 5 mg PO BEDTIME 07/10/18 [History] Montelukast [Singulair] 10 mg PO DAILY 07/10/18 [History] Tiotropium [Spiriva Handihaler] 1 cap INH BEDTIME 07/10/18 [History] Topiramate 25 mg PO DAILY PRN 07/10/18 [History] Folic Acid 1 mg PO DAILY 09/21/18 [History] Past Medical History - Past Health History Medical/Surgical History: Denies Medical/Surgical History HEENT History: Reports: Impaired Vision Cardiovascular History: Reports: None Respiratory History: Reports: Asthma, Bronchitis, Recurrent, Pneumonia, Recurrent, Sleep Apnea Gastrointestinal History: Reports: Cholelithiasis, GERD Genitourinary History: Reports: None PROSPECTING DRILLER History: Reports: Spontaneous Other OB/BYN History: times 3 Musculoskeletal History: Reports: None Neurological History: Reports: Migraines Psychiatric History: Reports: Anxiety, Depression, Learning Disability Endocrine/Metabolic History: Reports: Hypothyroidism, Obesity/BMI 30+ Hematologic History: Reports: Anemia Immunologic History: Reports: None Oncologic (Cancer) History: Reports: None Dermatologic History: Reports: None - Infectious Disease History Infectious Disease History: Reports: Chicken Pox - Past Surgical History Head Surgeries/Procedures: Reports: None HEENT Surgical History: Reports: Oral Surgery GI Surgical History: Reports: Cholecystectomy Female Surgical History: Reports: None Social & Family History - Family History Family Medical History: Noncontributory - Tobacco Use Smoking Status *Q: Current Every Day Smoker Years of Tobacco use: 1 Packs/Tins Daily: 0.5 - Caffeine Use Caffeine Use: Reports: Coffee, Energy Drinks, Soda - Recreational Drug Use Recreational Drug Use: Yes Recreational Drug Type: Reports: Marijuana/Hashish - Living Situation & Occupation Living situation: Reports: with Family H&P Review of Systems - Review of Systems: Review Of Systems: See Below General: Denies: Fever, Chills, Weakness, Diaphoresis HEENT: Denies: Dysphasia, Hearing Changes, Rhinitis, Sinus Congestion, Sore Throat Pulmonary: Reports: Shortness of Breath, Cough, Sputum Cardiovascular: Denies: Chest Pain, Palpitations, Lightheadedness Gastrointestinal: Denies: Abdominal Pain, Constipation, Diarrhea, Distension, Nausea, Vomiting Genitourinary: Denies: Dysuria, Frequency, Burning, Urgency, Flank Pain Musculoskeletal: Denies: Neck Pain, Leg Pain, Muscle Stiffness Skin: Denies: Jaundice, Bruising, Pruritis, Rash Neurological: Denies: Confusion, Dizziness, Numbness, Tremors Hematologic/Lymphatic: Reports: No Symptoms Immunologic: Reports: No Symptoms Exam - Exam Exam: See Below - Vital Signs Vital Signs: Last Vital Signs Temp 35.8 C 11/21/18 20:37 Pulse 124 H 11/21/18 20:37 Resp 16 11/21/18 20:37 BP 114/67 11/21/18 20:37 Pulse Ox 92 L 11/21/18 21:25 Weight: 178.262 kg - Exam Quality Assessment: DVT Prophylaxis. No: Supplemental Oxygen, Central Line/PICC , Urinary Catheter General: Alert, Oriented, Cooperative HEENT: Conjunctiva Clear, EOMI, Hearing Intact, Pupils Reactive Neck: Supple, Full Range of Motion. No: JVD, Thyromegaly Lungs: Clear to Auscultation, Normal Respiratory Effort, Wheezing (Inspiratory) Cardiovascular: Regular Rate, Regular Rhythm, Normal S1, Normal S2 GI/Abdominal Exam: Normal Bowel Sounds, Non-Tender, No Organomegaly, No Distention. No: Rebound, Tender (Female) Exam: Deferred Rectal (Female) Exam: Deferred Back Exam: Normal Inspection, Full Range of Motion Extremities: Normal Inspection, No Pedal Edema Skin: Warm, Dry, Intact Neurological: Cranial Nerves Intact, Reflexes Equal Bilateral Neuro Extensive - Mental Status: Alert, Oriented x3, Normal Mood/Affect, Normal Cognition Neuro Extensive - Motor, Sensory, Reflexes: CN II-XII Intact, Normal Gait, Normal Reflexes Psychiatric: Alert, Normal Affect, Normal Mood - Patient Data Lab Results Last 24 hrs: Laboratory Results - last 24 hr 11/21/18 11/21/18 11/21/18 Range/Units 20:45 20:45 20:45 WBC 14.9 H (5.0-10.0) 10^3/uL RBC 5.18 (4.2-5.4) 10^6/uL Hgb 11.3 L (12.0-16.0) g/dL Hct 37.0 (37.0-47.0) % MCV 71.4 L (80-100) fL MCH 21.8 L (27.0-34.0) pg MCHC 30.5 L (33.0-35.0) g/dL Plt Count 434 (150-450) 10^3/uL Neut % (Auto) 77.9 H (42.2-75.2) % Lymph % (Auto) 10.2 L (20.5-50.1) % [place] % (Auto) 10.7 H (2-8) % Eos % (Auto) 0.9 L (1.0-3.0) % Baso % (Auto) 0.3 (0.0-1.0) % Sodium 135 (135-145) mmol/L Potassium 3.6 (3.6-5.0) mmol/L Chloride 104 (101-111) mmol/L Carbon Dioxide 21.0 (21.0-31.0) mmol/L Anion Gap 13.6 BUN 13 (7-18) mg/dL Creatinine 0.7 (0.6-1.3) mg/dL Est Cr Clr Drug Dosing 109.78 mL/min Estimated GFR (MDRD) > 60 BUN/Creatinine Ratio 18.57 Glucose 106 H (74-105) mg/dL Lactic Acid 1.9 (0.5-2.2) mmol/L Calcium 8.6 (8.4-10.2) mg/dl Total Bilirubin 0.5 (0.2-1.0) mg/dL AST 21 (10-42) IU/L ALT 16 (10-60) IU/L Alkaline Phosphatase 88 (42-121) IU/L Total Protein 7.8 (6.7-8.2) g/dl Albumin 3.6 (3.2-5.5) g/dl Globulin 4.2 Albumin/Globulin Ratio 0.86 Result Diagrams: 11/21/18 20:45 11/21/18 20:45 - Problem List (1) Exacerbation of asthma SNOMED Code(s): 155110671 ICD Code: J45.901 - UNSPECIFIED ASTHMA WITH (ACUTE) EXACERBATION Status: Acute Current Visit: Yes Qualifiers: Asthma severity: mild Asthma persistence: intermittent Qualified Code(s) : J45.21 - Mild intermittent asthma with (acute) exacerbation (2) LLL pneumonia SNOMED Code(s): 339649743 ICD Code: J18.1 - LOBAR PNEUMONIA, UNSPECIFIED ORGANISM Status: Acute Current Visit: Yes Qualifiers: Pneumonia type: due to unspecified organism Qualified Code(s): J18.1 - Lobar pneumonia, unspecified organism Problem List Initiated/Reviewed/Updated: Yes Orders Last 24hrs: Active Orders 24 hr Category Date Time Status RT Aerosol Therapy [RC] ASDIRECTED Care 11/21/18 20:43 Active CULTURE BLOOD [BC] Stat Lab 11/21/18 20:45 Received Azithromycin [Zithromax] 500 mg Med 11/21/18 21:52 Active Sodium Chloride 0.9% [Normal Saline] 250 ml IV ONETIME Medication Orders Azithromycin 500 mg/ Sodium (Chloride) 250 mls @ 250 mls/hr IV ONETIME ONE Stop: 11/21/18 22:51 Last Admin: 11/21/18 22:04 Dose: 250 mls/hr Assessment/Plan Comment:: This is a 23 y/O morbidly obese Female with past history of Asthma, Restrictive Lung disease, Smoker, Hypothyroidism came to ED with increase shortness of breath with cough and sputum Impression and Plan: 1. Exacerbation of Asthma likely secondary to Pneumonia -Will start her on Zosyn and Ceftriaxone -Will start Slomedrol -Will albuterol nebs prn -Will start Scheduled Duonebs -Encourage using incentive spirometry and flutter valve 2. History of Asthma: -Will continue nebs and steroids 3. Cough with sputum: CXR Left lower lobe pneumonia -Continue abx 4. Hypothyroidism: continue Levothyroxin 5. Smoking: Start Nicotine patch 6. DVT Prophylexis: Continue Heparin 7. GI prophylaxis: Continue Protonix Code Status: Full Code
[2018-11-21] MEDS ORDERED: Docusate Sodium 100 MG Cap PO PRN (22:50)
[2018-11-21] MEDS ORDERED: Albuterol 0.021% 0.63 MG/3 ML Neb Soln NEB PRN (22:56)
[2018-11-21] MEDS ORDERED: Heparin Sodium 5,000 Units/ML Vial SUBCUT SCH (23:00)
[2018-11-21] MEDS ORDERED: ELETRIPTAN HBR 20 MG PO PRN (23:05)
[2018-11-21] MEDS: Acetaminophen 325 MG Tab PO PRN (23:23)
[2018-11-21] MEDS: Albuterol/Ipratropium 3.0-0.5 MG/3 ML Neb Soln NEB SCH (23:23)
[2018-11-21] MEDS ORDERED: Nicotine 14 MG/24 Hr Patch TRDERM ONE (23:30)
[2018-11-21] MEDS: Formoterol/Mometasone 200-5 MCG 8.8 GM Inhaler IH SCH (23:35)
[2018-11-21] MEDS: Piperacillin/Tazobactam 3.375 GM in Sodium Chloride 0.9% 100 ML IV SCH (23:40)
[2018-11-22] MEDS: Benzonatate 100 MG Cap PO PRN ×4 (01:05→20:45)
[2018-11-22] MEDS: guaiFENesin/Dextromethorphan 100-10 MG/5 ML Soln 5 ML Cup PO PRN ×3 (01:05→22:55)
[2018-11-22] MEDS: Albuterol/Ipratropium 3.0-0.5 MG/3 ML Neb Soln NEB SCH ×5 (04:40→22:01)
[2018-11-22] MEDS: Acetaminophen 325 MG Tab PO PRN ×3 (04:41→22:01)
[2018-11-22] MEDS: Levothyroxine 50 MCG Tab PO SCH (05:00)
[2018-11-22] MEDS: Pantoprazole 40 MG Tab.CR PO SCH (05:00)
[2018-11-22] MEDS: Heparin Sodium 5,000 Units/ML Vial SUBCUT SCH ×3 (05:01→22:01)
[2018-11-22] MEDS: Piperacillin/Tazobactam 3.375 GM in Sodium Chloride 0.9% 100 ML IV SCH ×4 (05:24→22:55)
[2018-11-22 06:55] LABS: ANION GAP 16.9; CHLORIDE,CL 102 mmol/L (101-111); SODIUM,NA 134 mmol/L (135-145)
[2018-11-22] MEDS ORDERED: methylPREDNISolone Sodium Succinate 40 MG/1 ML SDV IVPUSH SCH (08:00)
[2018-11-22] MEDS ORDERED: methylPREDNISolone Sodium Succinate 125 MG/2 ML SDV IVPUSH SCH (08:00)
[2018-11-22] MEDS: Formoterol/Mometasone 200-5 MCG 8.8 GM Inhaler IH SCH (08:55)
[2018-11-22] MEDS: Ferrous Sulfate 325 MG Tab PO SCH ×3 (08:56→20:45)
[2018-11-22] MEDS: Folic Acid 1 MG Tab PO SCH (08:56)
[2018-11-22] MEDS: Multivitamins,Therapeutic Tab PO SCH (08:56)
[2018-11-22] MEDS ORDERED: cefTRIAXone 1 GM in Sodium Chloride 0.9% 50 ML IV SCH (09:00)
--- NOTE | 2018-11-22 12:13 | PCM.PN ---
- General Info Date of Service: 11/22/18 Admission Dx/Problem (Free Text): Admitted with: Increased shortness of Breath and Asthma Exacerbation secondary to Pneumonia Subjective Update: has cough, non productive mod to severe associated with sob no fever no cp Functional Status: Reports: Pain Controlled, Tolerating Diet - Review of Systems General: Denies: Fever Pulmonary: Reports: Shortness of Breath (with activity) Cardiovascular: Denies: Chest Pain Gastrointestinal: Denies: Abdominal Pain Genitourinary: Denies: Dysuria Psychiatric: Denies: Confusion - Patient Data Vitals - Most Recent: Last Vital Signs Temp 36.7 C 11/22/18 12:08 Pulse 94 11/22/18 12:08 Resp 20 11/22/18 12:08 BP 123/81 11/22/18 12:08 Pulse Ox 92 L 11/22/18 12:08 Weight - Most Recent: 178.262 kg I&O - Last 24 Hours: Intake & Output 11/21/18 11/22/18 11/22/18 22:59 06:59 14:59 Intake Total 29 420 Balance 29 420 Lab Results Last 24 Hours: Laboratory Results - last 24 hr 11/21/18 11/21/18 11/21/18 Range/Units 20:45 20:45 20:45 WBC 14.9 H (5.0-10.0) 10^3/uL RBC 5.18 (4.2-5.4) 10^6/uL Hgb 11.3 L (12.0-16.0) g/dL Hct 37.0 (37.0-47.0) % MCV 71.4 L (80-100) fL MCH 21.8 L (27.0-34.0) pg MCHC 30.5 L (33.0-35.0) g/dL Plt Count 434 (150-450) 10^3/uL Neut % (Auto) 77.9 H (42.2-75.2) % Lymph % (Auto) 10.2 L (20.5-50.1) % [place] % (Auto) 10.7 H (2-8) % Eos % (Auto) 0.9 L (1.0-3.0) % Baso % (Auto) 0.3 (0.0-1.0) % Add Manual Diff Neutrophils % (Manual) (42-75) % Lymphocytes % (Manual) (20-50) % Monocytes % (Manual) (2-8) % Hypochromasia Ovalocytes Sodium 135 (135-145) mmol/L Potassium 3.6 (3.6-5.0) mmol/L Chloride 104 (101-111) mmol/L Carbon Dioxide 21.0 (21.0-31.0) mmol/L Anion Gap 13.6 BUN 13 (7-18) mg/dL Creatinine 0.7 (0.6-1.3) mg/dL Est Cr Clr Drug Dosing 109.78 mL/min Estimated GFR (MDRD) > 60 BUN/Creatinine Ratio 18.57 Glucose 106 H (74-105) mg/dL Lactic Acid 1.9 (0.5-2.2) mmol/L Calcium 8.6 (8.4-10.2) mg/dl Total Bilirubin 0.5 (0.2-1.0) mg/dL AST 21 (10-42) IU/L ALT 16 (10-60) IU/L Alkaline Phosphatase 88 (42-121) IU/L Total Protein 7.8 (6.7-8.2) g/dl Albumin 3.6 (3.2-5.5) g/dl Globulin 4.2 Albumin/Globulin Ratio 0.86 11/22/18 11/22/18 Range/Units 06:15 06:15 WBC 16.1 H (5.0-10.0) 10^3/uL RBC 4.94 (4.2-5.4) 10^6/uL Hgb 10.7 L (12.0-16.0) g/dL Hct 35.4 L (37.0-47.0) % MCV 71.7 L (80-100) fL MCH 21.7 L (27.0-34.0) pg MCHC 30.2 L (33.0-35.0) g/dL Plt Count 403 (150-450) 10^3/uL Neut % (Auto) 91.8 H (42.2-75.2) % Lymph % (Auto) 6.8 L (20.5-50.1) % [place] % (Auto) 1.3 L (2-8) % Eos % (Auto) 0.0 L (1.0-3.0) % Baso % (Auto) 0.1 (0.0-1.0) % Add Manual Diff Yes Neutrophils % (Manual) 94 H (42-75) % Lymphocytes % (Manual) 4 L (20-50) % Monocytes % (Manual) 2 (2-8) % Hypochromasia 1+ slight Ovalocytes 2+ moderate Sodium 134 L (135-145) mmol/L Potassium 3.9 (3.6-5.0) mmol/L Chloride 102 (101-111) mmol/L Carbon Dioxide 19.0 L (21.0-31.0) mmol/L Anion Gap 16.9 BUN 15 (7-18) mg/dL Creatinine 0.8 (0.6-1.3) mg/dL Est Cr Clr Drug Dosing 104.14 mL/min Estimated GFR (MDRD) > 60 BUN/Creatinine Ratio Glucose 137 H (74-105) mg/dL Lactic Acid (0.5-2.2) mmol/L Calcium 8.6 (8.4-10.2) mg/dl Total Bilirubin (0.2-1.0) mg/dL AST (10-42) IU/L ALT (10-60) IU/L Alkaline Phosphatase (42-121) IU/L Total Protein (6.7-8.2) g/dl Albumin (3.2-5.5) g/dl Globulin Albumin/Globulin Ratio Med Orders - Current: Current Medications Acetaminophen (Tylenol) 650 mg PO Q4H PRN PRN Reason: Pain (mild 1-3 )/fever Last Admin: 11/22/18 09:11 Dose: 650 mg Albuterol (Proventil Neb Soln) 0.63 mg NEB Q4HRRT PRN PRN Reason: Shortness of Breath Albuterol/Ipratropium (Duoneb 3.0-0.5 Mg/3 Ml) 3 ml NEB Q4HRRT [facility] Last Admin: 11/22/18 11:19 Dose: 3 ml Benzonatate (Tessalon Perles) 100 mg PO QID PRN PRN Reason: Cough Last Admin: 11/22/18 09:12 Dose: 100 mg Docusate Sodium (Colace) 100 mg PO DAILY PRN PRN Reason: Constipation Ferrous Sulfate (Ferrous Sulfate) 325 mg PO TID [facility] Last Admin: 11/22/18 08:56 Dose: 325 mg Folic Acid (Folic Acid) 1 mg PO DAILY [facility] Last Admin: 11/22/18 08:56 Dose: 1 mg Guaifenesin/Phenylephrine HCl (Robitussin Dm) 5 ml PO Q4H PRN PRN Reason: Cough Last Admin: 11/22/18 01:05 Dose: 5 ml Heparin Sodium (Porcine) (Heparin Sodium) 5,000 units SUBCUT Q8H [facility] Last Admin: 11/22/18 05:01 Dose: 5,000 units Piperacillin Sod/Tazobactam (Sod 3.375 gm/ Sodium Chloride) 100 mls @ 200 mls/ hr IV Q6H [facility] Last Admin: 11/22/18 11:39 Dose: 200 mls/hr Ceftriaxone Sodium 1 gm/ (Sodium Chloride) 50 mls @ 50 mls/hr IV Q12HR [facility] Last Admin: 11/22/18 09:12 Dose: 50 mls/hr Levothyroxine Sodium (Synthroid) 350 mcg PO ACBREAKFAST [facility] Last Admin: 11/22/18 05:00 Dose: 350 mcg Methylprednisolone Sodium Succinate (Solu-Medrol) 40 mg IVPUSH Q8H [facility] Mometasone Furoate/Formoterol Fumar (Dulera 200-5 Mcg) 2 puff IH BID [facility] Last Admin: 11/22/18 08:55 Dose: 2 puff Montelukast Sodium (Singulair) 10 mg PO BEDTIME [facility] Multivitamins (Thera) 1 each PO DAILY [facility] Last Admin: 11/22/18 08:56 Dose: 1 each Nicotine (Habitrol) 14 mg TRDERM DAILY@2100 [facility] Pantoprazole Sodium (Protonix) 40 mg PO ACBREAKFAST [facility] Last Admin: 11/22/18 05:00 Dose: 40 mg Tiotropium [place] (Spiriva Handihaler) 18 mcg INH BEDTIME [facility] Topiramate (Topamax) 25 mg PO DAILY PRN PRN Reason: Headache Discontinued Medications Albuterol/Ipratropium (Duoneb 3.0-0.5 Mg/3 Ml) 3 ml NEB ONETIME ONE Stop: 11/21/18 20:43 Last Admin: 11/21/18 20:54 Dose: 3 ml Benzonatate (Tessalon Perles) 200 mg PO ONETIME ONE Stop: 11/21/18 21:23 Last Admin: 11/21/18 21:28 Dose: 200 mg Heparin Sodium (Porcine) (Heparin Sodium) 5,000 units SUBCUT Q8H [facility] Last Admin: 11/21/18 23:39 Dose: 5,000 units Azithromycin 500 mg/ Sodium (Chloride) 250 mls @ 250 mls/hr IV ONETIME ONE Stop: 11/21/18 22:51 Last Infusion: 11/22/18 02:32 Dose: Infused Methylprednisolone Sodium Succinate (Solu-Medrol) 125 mg IVPUSH ONETIME ONE Stop: 11/21/18 20:43 Last Admin: 11/21/18 20:54 Dose: 125 mg Methylprednisolone Sodium Succinate (Solu-Medrol) 60 mg IVPUSH Q8H JERILYN Methylprednisolone Sodium Succinate (Solu-Medrol) 80 mg IVPUSH Q8H [facility] Last Admin: 11/22/18 08:55 Dose: 80 mg Nicotine (Habitrol) 14 mg TRDERM ONETIME ONE Stop: 11/21/18 23:31 Last Admin: 11/21/18 23:36 Dose: 14 mg - Exam General: Alert, Oriented Neck: Supple Lungs: Clear to Auscultation, Normal Respiratory Effort GI/Abdominal Exam: Normal Bowel Sounds, Soft, Non-Tender, Other (morbidly obese) Extremities: No Pedal Edema - Problem List & Annotations (1) LLL pneumonia SNOMED Code(s): 121073807 Code(s): J18.1 - LOBAR PNEUMONIA, UNSPECIFIED ORGANISM Status: Acute Current Visit: Yes Qualifiers: Pneumonia type: due to unspecified organism Qualified Code(s): J18.1 - Lobar pneumonia, unspecified organism - Problem List Review Problem List Initiated/Reviewed/Updated: Yes - My Orders Last 24 Hours: My Active Orders 11/22/18 12:09 methylPREDNISolone Sod Succ [Solu-MEDROL] 40 mg IVPUSH Q8H 11/23/18 05:15 BASIC METABOLIC PANEL,BMP [CHEM] AM CBC WITH AUTO DIFF [HEME] AM - Plan Plan:: This is a 23 y/O morbidly obese Female with past history of Asthma, Restrictive Lung disease, Smoker, Hypothyroidism came to ED with increase shortness of breath with cough and sputum Impression and Plan: 1. Exacerbation of Asthma likely secondary to LLLobe Pneumonia Sputum cx: pending -continue on Zosyn stop Ceftriaxone -taper Slomedrol -Will albuterol nebs prn -Will start Scheduled Duonebs -Encourage using incentive spirometry and flutter valve 2. History of Asthma: -Will continue nebs and steroids 3. Hypothyroidism: continue Levothyroxin 4. Smoking: cessation discussed cont Nicotine patch 5. DVT Prophylaxis: Continue Heparin Code Status: Full Code
[2018-11-22] MEDS: Ipratropium 0.02% 0.5 MG/2.5 ML Neb Soln NEB PRN (16:58)
[2018-11-22] MEDS: Budesonide 0.5 MG/2 ML Neb Susp NEB SCH (17:00)
[2018-11-22] MEDS: methylPREDNISolone Sodium Succinate 40 MG/1 ML SDV IVPUSH SCH (17:24)
[2018-11-22] MEDS: Sodium Chloride 0.9% 10 ML Syringe FLUSH PRN (18:10)
[2018-11-22] MEDS: Nicotine 14 MG/24 Hr Patch TRDERM SCH (20:45)
[2018-11-22] MEDS: Montelukast 10 MG Tab PO SCH (20:45)
[2018-11-22] MEDS ORDERED: LEVOCETIRIZINE DIHYDROCHLORIDE PO SCH (21:00)
[2018-11-22] MEDS ORDERED: Tiotropium Inhaler 18 MCG Inhalation Powder Cap Kit of 5 INH SCH (21:00)
[2018-11-23] MEDS: methylPREDNISolone Sodium Succinate 40 MG/1 ML SDV IVPUSH SCH ×4 (00:46→20:45)
[2018-11-23] MEDS: Piperacillin/Tazobactam 3.375 GM in Sodium Chloride 0.9% 100 ML IV SCH ×4 (04:46→23:24)
[2018-11-23] MEDS: Acetaminophen 325 MG Tab PO PRN ×4 (04:46→20:29)
[2018-11-23] MEDS: Sodium Chloride 0.9% 10 ML Syringe FLUSH PRN ×4 (05:26→23:24)
[2018-11-23] MEDS: Heparin Sodium 5,000 Units/ML Vial SUBCUT SCH ×3 (05:34→21:49)
[2018-11-23] MEDS: Pantoprazole 40 MG Tab.CR PO SCH (05:34)
[2018-11-23] MEDS: guaiFENesin/Dextromethorphan 100-10 MG/5 ML Soln 5 ML Cup PO PRN ×4 (05:34→20:30)
[2018-11-23] MEDS: Levothyroxine 50 MCG Tab PO SCH (05:37)
[2018-11-23] MEDS: Ipratropium 0.02% 0.5 MG/2.5 ML Neb Soln NEB PRN (05:42)
[2018-11-23 07:11] LABS: ANION GAP 16.3; CHLORIDE,CL 103 mmol/L (101-111); SODIUM,NA 135 mmol/L (135-145)
[2018-11-23] MEDS: Budesonide 0.5 MG/2 ML Neb Susp NEB SCH ×2 (07:18→20:46)
[2018-11-23] MEDS: Albuterol/Ipratropium 3.0-0.5 MG/3 ML Neb Soln NEB SCH ×3 (07:19→20:31)
[2018-11-23] MEDS: Multivitamins,Therapeutic Tab PO SCH (08:56)
[2018-11-23] MEDS: Ferrous Sulfate 325 MG Tab PO SCH ×3 (08:56→20:26)
[2018-11-23] MEDS: Benzonatate 100 MG Cap PO PRN ×3 (08:56→20:28)
[2018-11-23] MEDS: Folic Acid 1 MG Tab PO SCH (08:56)
[2018-11-23] MEDS: Topiramate 25 MG Tab PO PRN (09:26)
[2018-11-23] MEDS ORDERED: hydrALAZINE 25 MG Tab PO PRN (11:03)
[2018-11-23] MEDS ORDERED: hydrOXYzine HCl 10 MG Tab PO PRN (11:08)
--- NOTE | 2018-11-23 11:12 | PCM.PN ---
- General Info Date of Service: 11/23/18 Admission Dx/Problem (Free Text): Admitted with: Increased shortness of Breath and Asthma Exacerbation secondary to Pneumonia Subjective Update: has cough, non productive mod to severe associated with sob some anxiety has been using nebs and inh frequently - had tachycardia no fever no cp Functional Status: Reports: Pain Controlled, Tolerating Diet - Review of Systems General: Reports: Weakness. Denies: Fever Pulmonary: Reports: Shortness of Breath (with activity) Cardiovascular: Denies: Chest Pain Gastrointestinal: Denies: Abdominal Pain Genitourinary: Denies: Dysuria Neurological: Denies: Confusion - Patient Data Vitals - Most Recent: Last Vital Signs Temp 36.7 C 11/23/18 08:18 Pulse 93 11/23/18 08:18 Resp 20 11/23/18 08:18 BP 111/70 11/23/18 08:18 Pulse Ox 92 L 11/23/18 08:18 Weight - Most Recent: 178.262 kg I&O - Last 24 Hours: Intake & Output 11/22/18 11/23/18 11/23/18 22:59 06:59 14:59 Intake Total 920 100 Balance 920 100 Lab Results Last 24 Hours: Laboratory Results - last 24 hr 11/23/18 11/23/18 Range/Units 05:50 05:50 WBC 23.6 H (5.0-10.0) 10^3/uL RBC 5.11 (4.2-5.4) 10^6/uL Hgb 11.2 L (12.0-16.0) g/dL Hct 36.3 L (37.0-47.0) % MCV 71.0 L (80-100) fL MCH 21.9 L (27.0-34.0) pg MCHC 30.9 L (33.0-35.0) g/dL Plt Count 491 H D (150-450) 10^3/uL Neut % (Auto) 86.8 H (42.2-75.2) % Lymph % (Auto) 5.6 L (20.5-50.1) % Cook % (Auto) 7.5 (2-8) % Eos % (Auto) 0.0 L (1.0-3.0) % Baso % (Auto) 0.1 (0.0-1.0) % Add Manual Diff Yes Neutrophils % (Manual) 86 H (42-75) % Band Neutrophils % 2 % Lymphocytes % (Manual) 6 L (20-50) % Monocytes % (Manual) 6 (2-8) % Hypochromasia 1+ slight Microcytosis 1+ slight Sodium 135 (135-145) mmol/L Potassium 4.3 (3.6-5.0) mmol/L Chloride 103 (101-111) mmol/L Carbon Dioxide 20.0 L (21.0-31.0) mmol/L Anion Gap 16.3 BUN 19 H (7-18) mg/dL Creatinine 0.7 (0.6-1.3) mg/dL Est Cr Clr Drug Dosing 119.01 mL/min Estimated GFR (MDRD) > 60 Glucose 109 H (74-105) mg/dL Calcium 8.8 (8.4-10.2) mg/dl Moisés Results Last 24 Hours: Microbiology 11/22/18 22:00 Gram Stain - Final Sputum - Expectorated 11/21/18 20:45 Aerobic Blood Culture - Preliminary Blood NO GROWTH AFTER 1 DAY Anaerobic Blood Culture - Preliminary NO GROWTH AFTER 1 DAY Med Orders - Current: Current Medications Acetaminophen (Tylenol) 650 mg PO Q4H PRN PRN Reason: Pain (mild 1-3 )/fever Last Admin: 11/23/18 08:56 Dose: 650 mg Albuterol/Ipratropium (Duoneb 3.0-0.5 Mg/3 Ml) 3 ml NEB TIDRT [facility] Last Admin: 11/23/18 07:19 Dose: 3 ml Benzonatate (Tessalon Perles) 100 mg PO QID PRN PRN Reason: Cough Last Admin: 11/23/18 08:56 Dose: 100 mg Budesonide (Pulmicort) 0.5 mg NEB BIDRT [facility] Last Admin: 11/23/18 07:18 Dose: 0.5 mg Docusate Sodium (Colace) 100 mg PO DAILY PRN PRN Reason: Constipation Ferrous Sulfate (Ferrous Sulfate) 325 mg PO TID [facility] Last Admin: 11/23/18 08:56 Dose: 325 mg Folic Acid (Folic Acid) 1 mg PO DAILY [facility] Last Admin: 11/23/18 08:56 Dose: 1 mg Guaifenesin/Phenylephrine HCl (Robitussin Dm) 5 ml PO Q4H PRN PRN Reason: Cough Last Admin: 11/23/18 08:56 Dose: 5 ml Heparin Sodium (Porcine) (Heparin Sodium) 5,000 units SUBCUT Q8H [facility] Last Admin: 11/23/18 05:34 Dose: 5,000 units Hydroxyzine HCl (Atarax) 10 mg PO Q6H PRN PRN Reason: Anxiety Piperacillin Sod/Tazobactam (Sod 3.375 gm/ Sodium Chloride) 100 mls @ 200 mls/ hr IV Q6H [facility] Last Infusion: 11/23/18 05:27 Dose: Infused Ipratropium [place] (Atrovent) 0.5 mg NEB Q6HRRT PRN PRN Reason: sob Last Admin: 11/23/18 05:42 Dose: 0.5 mg Levothyroxine Sodium (Synthroid) 350 mcg PO ACBREAKFAST [facility] Last Admin: 11/23/18 05:37 Dose: 350 mcg Methylprednisolone Sodium Succinate (Solu-Medrol) 40 mg IVPUSH BID [facility] Montelukast Sodium (Singulair) 10 mg PO BEDTIME [facility] Last Admin: 11/22/18 20:45 Dose: 10 mg Multivitamins (Thera) 1 each PO DAILY [facility] Last Admin: 11/23/18 08:56 Dose: 1 each Nicotine (Habitrol) 14 mg TRDERM DAILY@2100 [facility] Last Admin: 11/22/18 20:45 Dose: 14 mg Pantoprazole Sodium (Protonix) 40 mg PO ACBREAKFAST [facility] Last Admin: 11/23/18 05:34 Dose: 40 mg Sodium Chloride (Saline Flush) 10 ml FLUSH ASDIRECTED PRN PRN Reason: Keep Vein Open Last Admin: 11/23/18 05:26 Dose: 10 ml Topiramate (Topamax) 25 mg PO DAILY PRN PRN Reason: Headache Last Admin: 11/23/18 09:26 Dose: 25 mg Discontinued Medications Albuterol (Proventil Neb Soln) 0.63 mg NEB Q4HRRT PRN PRN Reason: Shortness of Breath Albuterol/Ipratropium (Duoneb 3.0-0.5 Mg/3 Ml) 3 ml NEB ONETIME ONE Stop: 11/21/18 20:43 Last Admin: 11/21/18 20:54 Dose: 3 ml Albuterol/Ipratropium (Duoneb 3.0-0.5 Mg/3 Ml) 3 ml NEB Q4HRRT [facility] Last Admin: 11/22/18 18:14 Dose: Not Given Benzonatate (Tessalon Perles) 200 mg PO ONETIME ONE Stop: 11/21/18 21:23 Last Admin: 11/21/18 21:28 Dose: 200 mg Heparin Sodium (Porcine) (Heparin Sodium) 5,000 units SUBCUT Q8H [facility] Last Admin: 11/21/18 23:39 Dose: 5,000 units Hydralazine HCl (Apresoline) 25 mg PO Q6H PRN PRN Reason: Anxiety Azithromycin 500 mg/ Sodium (Chloride) 250 mls @ 250 mls/hr IV ONETIME ONE Stop: 11/21/18 22:51 Last Infusion: 11/22/18 02:32 Dose: Infused Ceftriaxone Sodium 1 gm/ (Sodium Chloride) 50 mls @ 50 mls/hr IV Q12HR [facility] Last Admin: 11/22/18 09:12 Dose: 50 mls/hr Methylprednisolone Sodium Succinate (Solu-Medrol) 125 mg IVPUSH ONETIME ONE Stop: 11/21/18 20:43 Last Admin: 11/21/18 20:54 Dose: 125 mg Methylprednisolone Sodium Succinate (Solu-Medrol) 60 mg IVPUSH Q8H [facility] Methylprednisolone Sodium Succinate (Solu-Medrol) 80 mg IVPUSH Q8H [facility] Last Admin: 11/22/18 08:55 Dose: 80 mg Methylprednisolone Sodium Succinate (Solu-Medrol) 40 mg IVPUSH Q8H [facility] Last Admin: 11/23/18 08:56 Dose: 40 mg Mometasone Furoate/Formoterol Fumar (Dulera 200-5 Mcg) 2 puff IH BID [facility] Last Admin: 11/22/18 08:55 Dose: 2 puff Nicotine (Habitrol) 14 mg TRDERM ONETIME ONE Stop: 11/21/18 23:31 Last Admin: 11/21/18 23:36 Dose: 14 mg Tiotropium [place] (Spiriva Handihaler) 18 mcg INH BEDTIME [facility] - Exam Quality Assessment: No: Supplemental Oxygen General: Alert, Oriented Neck: Supple Lungs: Wheezing (mild on left side) Cardiovascular: Regular Rate, Regular Rhythm GI/Abdominal Exam: Normal Bowel Sounds, Soft, Non-Tender, Other (morbidly obese) Extremities: No Pedal Edema - Problem List & Annotations (1) LLL pneumonia SNOMED Code(s): 187132299 Code(s): J18.1 - LOBAR PNEUMONIA, UNSPECIFIED ORGANISM Status: Acute Current Visit: Yes Qualifiers: Pneumonia type: due to unspecified organism Qualified Code(s): J18.1 - Lobar pneumonia, unspecified organism - Problem List Review Problem List Initiated/Reviewed/Updated: Yes - My Orders Last 24 Hours: My Active Orders 11/22/18 15:32 Antiembolic Devices [RC] PER UNIT ROUTINE RT Aerosol Therapy [RC] ASDIRECTED SCD [Sequential Compression Device] [OM.PC] Routine 11/22/18 16:41 RT Aerosol Therapy [RC] ASDIRECTED RT Post Treatment Assessment [RC] Click to Edit RT Pre-Treatment Assessment [RC] Click to Edit Ipratropium [Atrovent] 0.5 mg NEB Q6HRRT PRN 11/22/18 18:00 Budesonide [Pulmicort] 0.5 mg NEB BIDRT 11/22/18 21:00 Albuterol/Ipratropium [DuoNeb 3.0-0.5 MG/3 ML] 3 ml NEB TIDRT 11/23/18 11:08 hydrOXYzine HCl [Atarax] 10 mg PO Q6H PRN 11/23/18 11:15 methylPREDNISolone Sod Succ [Solu-MEDROL] 40 mg IVPUSH BID - Plan Plan:: This is a 23 y/O morbidly obese Female with past history of Asthma, Restrictive Lung disease, Smoker, Hypothyroidism came to ED with increase shortness of breath with cough and sputum Impression and Plan: 1. Exacerbation of Asthma likely secondary to LLLobe Pneumonia Sputum cx: pending -continue on Zosyn -taper Slomedrol further -Will use albuterol nebs prn -cont scheduled Duonebs -Encourage using incentive spirometry and flutter valve 2. Hypothyroidism: continue Levothyroxin 3. Smoking: cessation discussed cont Nicotine patch 4. DVT Prophylaxis: Continue Heparin Code Status: Full Code
[2018-11-23] MEDS ORDERED: Albuterol 0.083% 2.5 MG/3 ML Neb Soln ONE (11:48)
[2018-11-23] MEDS: Albuterol 0.083% 2.5 MG/3 ML Neb Soln NEB PRN (11:52)
[2018-11-23] MEDS: Montelukast 10 MG Tab PO SCH (20:26)
[2018-11-23] MEDS: Nicotine 14 MG/24 Hr Patch TRDERM SCH (20:27)
[2018-11-24] MEDS: Sodium Chloride 0.9% 10 ML Syringe FLUSH PRN ×3 (00:03→05:47)
[2018-11-24] MEDS: Acetaminophen 325 MG Tab PO PRN ×2 (02:33→08:20)
[2018-11-24] MEDS: Piperacillin/Tazobactam 3.375 GM in Sodium Chloride 0.9% 100 ML IV SCH ×2 (05:05→11:00)
[2018-11-24] MEDS: Pantoprazole 40 MG Tab.CR PO SCH (05:19)
[2018-11-24] MEDS: Heparin Sodium 5,000 Units/ML Vial SUBCUT SCH (05:23)
[2018-11-24] MEDS: Albuterol 0.083% 2.5 MG/3 ML Neb Soln NEB PRN (05:28)
[2018-11-24] MEDS: Levothyroxine 50 MCG Tab PO SCH (05:37)
[2018-11-24] MEDS: Topiramate 25 MG Tab PO PRN (05:45)
[2018-11-24] MEDS: Albuterol/Ipratropium 3.0-0.5 MG/3 ML Neb Soln NEB SCH (07:35)
[2018-11-24] MEDS: Budesonide 0.5 MG/2 ML Neb Susp NEB SCH (07:35)
[2018-11-24] MEDS: Folic Acid 1 MG Tab PO SCH (08:20)
[2018-11-24] MEDS: methylPREDNISolone Sodium Succinate 40 MG/1 ML SDV IVPUSH SCH (08:20)
[2018-11-24] MEDS: Multivitamins,Therapeutic Tab PO SCH (08:20)
[2018-11-24] MEDS: Ferrous Sulfate 325 MG Tab PO SCH (08:20)
[2018-11-24] MEDS: Benzonatate 100 MG Cap PO PRN (09:17)
--- NOTE | 2018-11-24 11:35 | PCM.DCSUM1 ---
Discharge Summary - Hospital Course Free Text/Narrative:: This is a 23 y/O morbidly obese Female with past history of Asthma, Restrictive Lung disease, Smoker, Hypothyroidism came to ED with increase shortness of breath with cough and sputum Impression and Plan: 1. Exacerbation of Asthma likely secondary to LLLobe Pneumonia Sputum cx: neg blood cx: neg treated with Zosyn discharge on Levofloxacin -taper steroid resume advair prn Duonebs 2. Hypothyroidism: continue Levothyroxin 3. Smoking: cessation discussed cont Nicotine patch e Diagnosis: Stroke: No - Discharge Data Discharge Date: 11/24/18 Discharge Disposition: Home, Self-Care 01 Condition: Good - Discharge Diagnosis/Problem(s) (1) LLL pneumonia SNOMED Code(s): 762292846 ICD Code: J18.1 - LOBAR PNEUMONIA, UNSPECIFIED ORGANISM Status: Acute Current Visit: Yes Qualifiers: Pneumonia type: due to unspecified organism Qualified Code(s): J18.1 - Lobar pneumonia, unspecified organism - Patient Instructions Diet: Heart Healthy Diet Activity: As Tolerated - Discharge Plan *PRESCRIPTION DRUG MONITORING PROGRAM REVIEWED*: Not Applicable *COPY OF PRESCRIPTION DRUG MONITORING REPORT IN PATIENT NATASHA: Not Applicable Prescriptions/Med Rec: Dextromethorphan/guaiFENesin [Robitussin DM] 5 ml PO Q4H PRN #100 ml PRN Reason: Cough Levofloxacin 750 mg PO DAILY #7 tablet Nicotine [Habitrol] 14 mg TRDERM DAILY@2100 #14 patch predniSONE [Prednisone] 10 mg PO DAILY #30 tab.ds.pk Home Medications: Home Meds Albuterol [IJD: Ventolin HFA] 2 puff INH QID PRN 03/26/17 [History] Ipratropium/Albuterol Sulfate [Iprat-Albut 0.5-3(2.5) mg/3 ml] 3 ml NEB Q4HR PRN 03/26/17 [History] Eletriptan HBr [Relpax] 20 mg PO DAILY PRN 01/27/18 [History] Ferrous Sulfate [Iron] 325 mg PO TID 01/27/18 [History] Fluticasone/Salmeterol [Advair 250-50 Diskus] 1 puff INH BID 01/27/18 [History] Levothyroxine [Synthroid] 350 mcg PO ACBREAKFAST 01/27/18 [History] Multivitamin [One Daily Multivitamin] 1 tab PO DAILY 01/27/18 [History] Levocetirizine Dihydrochloride 5 mg PO BEDTIME 07/10/18 [History] Montelukast [Singulair] 10 mg PO DAILY 07/10/18 [History] Tiotropium [Spiriva Handihaler] 1 cap INH BEDTIME 07/10/18 [History] Topiramate 25 mg PO DAILY PRN 07/10/18 [History] Folic Acid 1 mg PO DAILY 09/21/18 [History] Dextromethorphan/guaiFENesin [Robitussin DM] 5 ml PO Q4H PRN #100 ml 11/24/18 [ Rx] Levofloxacin 750 mg PO DAILY #7 tablet 11/24/18 [Rx] Nicotine [Habitrol] 14 mg TRDERM DAILY@2100 #14 patch 11/24/18 [Rx] predniSONE [Prednisone] 10 mg PO DAILY #30 tab.ds.pk 11/24/18 [Rx] Patient Handouts: Steps to Quit Smoking, [id number], Coping with Quitting Smoking, Panic Attack, [id number], Asthma Attack Prevention, Adult, Community- Acquired Pneumonia, Adult, [id number] Referrals: Margo Dasilva MD [Family Provider] - (in 3-4 days) - Discharge Summary/Plan Comment DC Time >30 min.: No - General Info Date of Service: 11/24/18 - Review of Systems General: Denies: Fever Pulmonary: Reports: Shortness of Breath (improved), Cough, Wheezing (improved) Cardiovascular: Denies: Chest Pain Gastrointestinal: Denies: Abdominal Pain Neurological: Denies: Confusion - Patient Data Vitals - Most Recent: Last Vital Signs Temp 36.5 C 11/24/18 08:00 Pulse 88 11/24/18 08:00 Resp 20 11/24/18 08:00 BP 110/76 11/24/18 08:00 Pulse Ox 91 L 11/24/18 08:00 Weight - Most Recent: 178.262 kg I&O - Last 24 hours: Intake & Output 11/23/18 11/24/18 11/24/18 22:59 06:59 14:59 Intake Total 360 682 360 Balance 360 682 360 MARTINA Results - Last 24 hrs: Microbiology 11/22/18 22:00 Gram Stain - Final Sputum - Expectorated Sputum Culture - Preliminary Normal Jie 11/21/18 20:45 Aerobic Blood Culture - Preliminary Blood NO GROWTH AFTER 2 DAYS Anaerobic Blood Culture - Preliminary NO GROWTH AFTER 2 DAYS Med Orders - Current: Current Medications Acetaminophen (Tylenol) 650 mg PO Q4H PRN PRN Reason: Pain (mild 1-3 )/fever Last Admin: 11/24/18 08:20 Dose: 650 mg Albuterol (Proventil Neb Soln) 2.5 mg NEB Q4HRRT PRN PRN Reason: sob Last Admin: 11/24/18 05:28 Dose: 2.5 mg Albuterol/Ipratropium (Duoneb 3.0-0.5 Mg/3 Ml) 3 ml NEB TIDRT [facility] Last Admin: 11/24/18 07:35 Dose: 3 ml Benzonatate (Tessalon Perles) 100 mg PO QID PRN PRN Reason: Cough Last Admin: 11/24/18 09:17 Dose: 100 mg Budesonide (Pulmicort) 0.5 mg NEB BID@0700,2100 [facility] Last Admin: 11/24/18 07:35 Dose: 0.5 mg Docusate Sodium (Colace) 100 mg PO DAILY PRN PRN Reason: Constipation Ferrous Sulfate (Ferrous Sulfate) 325 mg PO TID [facility] Last Admin: 11/24/18 08:20 Dose: 325 mg Folic Acid (Folic Acid) 1 mg PO DAILY [facility] Last Admin: 11/24/18 08:20 Dose: 1 mg Guaifenesin/Phenylephrine HCl (Robitussin Dm) 5 ml PO Q4H PRN PRN Reason: Cough Last Admin: 11/23/18 20:30 Dose: 5 ml Heparin Sodium (Porcine) (Heparin Sodium) 5,000 units SUBCUT Q8H [facility] Last Admin: 11/24/18 05:23 Dose: 5,000 units Hydroxyzine HCl (Atarax) 10 mg PO Q6H PRN PRN Reason: Anxiety Last Admin: 11/23/18 12:06 Dose: 10 mg Piperacillin Sod/Tazobactam (Sod 3.375 gm/ Sodium Chloride) 100 mls @ 200 mls/ hr IV Q6H [facility] Last Admin: 11/24/18 11:00 Dose: 200 mls/hr Levothyroxine Sodium (Synthroid) 350 mcg PO ACBREAKFAST [facility] Last Admin: 11/24/18 05:37 Dose: 350 mcg Methylprednisolone Sodium Succinate (Solu-Medrol) 40 mg IVPUSH BID [facility] Last Admin: 11/24/18 08:20 Dose: 40 mg Montelukast Sodium (Singulair) 10 mg PO BEDTIME [facility] Last Admin: 11/23/18 20:26 Dose: 10 mg Multivitamins (Thera) 1 each PO DAILY [facility] Last Admin: 11/24/18 08:20 Dose: 1 each Nicotine (Habitrol) 14 mg TRDERM DAILY@2100 [facility] Last Admin: 11/23/18 20:27 Dose: 14 mg Pantoprazole Sodium (Protonix) 40 mg PO ACBREAKFAST [facility] Last Admin: 11/24/18 05:19 Dose: 40 mg Sodium Chloride (Saline Flush) 10 ml FLUSH ASDIRECTED PRN PRN Reason: Keep Vein Open Last Admin: 11/24/18 05:47 Dose: 10 ml Topiramate (Topamax) 25 mg PO DAILY PRN PRN Reason: Headache Last Admin: 11/24/18 05:45 Dose: 25 mg Discontinued Medications Albuterol (Proventil Neb Soln) 0.63 mg NEB Q4HRRT PRN PRN Reason: Shortness of Breath Albuterol (Proventil Neb Soln) Confirm Administered Dose 2.5 mg .ROUTE .STK-MED ONE Stop: 11/23/18 11:49 Last Admin: 11/23/18 12:11 Dose: Not Given Albuterol/Ipratropium (Duoneb 3.0-0.5 Mg/3 Ml) 3 ml NEB ONETIME ONE Stop: 11/21/18 20:43 Last Admin: 11/21/18 20:54 Dose: 3 ml Albuterol/Ipratropium (Duoneb 3.0-0.5 Mg/3 Ml) 3 ml NEB Q4HRRT [facility] Last Admin: 11/22/18 18:14 Dose: Not Given Benzonatate (Tessalon Perles) 200 mg PO ONETIME ONE Stop: 11/21/18 21:23 Last Admin: 11/21/18 21:28 Dose: 200 mg Budesonide (Pulmicort) 0.5 mg NEB BIDRT [facility] Last Admin: 11/23/18 07:18 Dose: 0.5 mg Heparin Sodium (Porcine) (Heparin Sodium) 5,000 units SUBCUT Q8H [facility]ERILYN Last Admin: 11/21/18 23:39 Dose: 5,000 units Hydralazine HCl (Apresoline) 25 mg PO Q6H PRN PRN Reason: Anxiety Azithromycin 500 mg/ Sodium (Chloride) 250 mls @ 250 mls/hr IV ONETIME ONE Stop: 11/21/18 22:51 Last Infusion: 11/22/18 02:32 Dose: Infused Ceftriaxone Sodium 1 gm/ (Sodium Chloride) 50 mls @ 50 mls/hr IV Q12HR JERILYN Last Admin: 11/22/18 09:12 Dose: 50 mls/hr Ipratropium [place] (Atrovent) 0.5 mg NEB Q6HRRT PRN PRN Reason: sob Last Admin: 11/23/18 05:42 Dose: 0.5 mg Methylprednisolone Sodium Succinate (Solu-Medrol) 125 mg IVPUSH ONETIME ONE Stop: 11/21/18 20:43 Last Admin: 11/21/18 20:54 Dose: 125 mg Methylprednisolone Sodium Succinate (Solu-Medrol) 60 mg IVPUSH Q8H JERILYN Methylprednisolone Sodium Succinate (Solu-Medrol) 80 mg IVPUSH Q8H [facility] Last Admin: 11/22/18 08:55 Dose: 80 mg Methylprednisolone Sodium Succinate (Solu-Medrol) 40 mg IVPUSH Q8H [facility] Last Admin: 11/23/18 08:56 Dose: 40 mg Mometasone Furoate/Formoterol Fumar (Dulera 200-5 Mcg) 2 puff IH BID [facility] Last Admin: 11/22/18 08:55 Dose: 2 puff Nicotine (Habitrol) 14 mg TRDERM ONETIME ONE Stop: 11/21/18 23:31 Last Admin: 11/21/18 23:36 Dose: 14 mg Tiotropium [place] (Spiriva Handihaler) 18 mcg INH BEDTIME JERILYN - Exam General: Reports: Alert, Oriented Neck: Reports: Supple Lungs: Reports: Normal Respiratory Effort, Wheezing (minimal ). Denies: Rales, Rhonchi Cardiovascular: Reports: Regular Rate, Regular Rhythm GI/Abdominal Exam: Normal Bowel Sounds, Soft, Non-Tender Extremities: No Pedal Edema
[2018-11-24 13:09] VITALS: BP 111/73
== END 2018-11-24 13:30 | disposition home or self-care (01) | DRG 202 ==
LOC: DL.ED 20:26 → DL.MS 22:05 → UNDOADMIN 22:05 → DL.MS 22:50
PROVIDERS: ADMIT Internal Medicine Nephrology; ATTEND Internal Medicine Nephrology
DX: J45.21 Mild intermittent asthma with (acute) exacerbation (principal); J18.1 Lobar pneumonia, unspecified organism; Z68.44 Body mass index [BMI] 60.0-69.9, adult; E03.9 Hypothyroidism, unspecified; E66.01 Morbid (severe) obesity due to excess calories; H54.7 Unspecified visual loss; G47.30 Sleep apnea, unspecified; K21.9 Gastro-esophageal reflux disease without esophagitis; G43.909 Migraine, unspecified, not intractable, without status migrainosus; F41.9 Anxiety disorder, unspecified; F32.9 Major depressive disorder, single episode, unspecified; F81.9 Developmental disorder of scholastic skills, unspecified; D64.9 Anemia, unspecified; F17.210 Nicotine dependence, cigarettes, uncomplicated; Z88.5 Allergy status to narcotic agent; Z91.040 Latex allergy status; Z91.018 Allergy to other foods; Z91.048 Other nonmedicinal substance allergy status; Z90.49 Acquired absence of other specified parts of digestive tract; Z71.6 Tobacco abuse counseling; Z79.51 Long term (current) use of inhaled steroids; Z79.899 Other long term (current) drug therapy
CPT/HCPCS: 36415; 71046; 80048; 80053; 83605; 85025; 87040; 87070; 87205; 94010; 94640; 94667; 96365; 96375; 99284; A9270-GY; J0456; J0696; J1644; J2543; J2920; J2930; J7050; J7613-GY; J7620-GY

== ENCOUNTER 2019-02-16 20:42 | Emergency (ER) | payer MEDICAID ==
[2019-02-16 21:52] VITALS: BP 127/68; PULSE 121
[2019-02-16] MEDS ORDERED: Albuterol/Ipratropium 3.0-0.5 MG/3 ML Neb Soln NEB ONE (23:41)
[2019-02-16] MEDS ORDERED: methylPREDNISolone Sodium Succinate 125 MG/2 ML SDV IM ONE (23:41)
--- NOTE | 2019-02-17 00:44 | EDM.PDOC ---
ED HPI GENERAL MEDICAL PROBLEM - General Chief Complaint: Respiratory Problem Stated Complaint: WEEZING, PANIC ATTACK? Time Seen by Provider: 02/16/19 22:00 Source of Information: Reports: Patient History Limitations: Reports: No Limitations - History of Present Illness INITIAL COMMENTS - FREE TEXT/NARRATIVE: C/O cough, SOB and wheeze sine Mothers Day, Hame medications and nebulizer every 4 hours not helping, increasing anxiety feels like painic attack when unable to breath. Clear phlegm at times with cough. 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: Breathing Treatments, Other Medication(s) Upper Chest Pain Score (Numeric/FACES): 4 - Related Data Allergies Allergy/AdvReac Type Severity Reaction Status Date / Time hydrocodone Allergy Hives Verified 11/21/18 22:28 latex Allergy Hives Verified 11/21/18 22:28 soap Allergy Rash Verified 11/21/18 22:28 harvest molds Allergy Cannot Uncoded 11/21/18 22:28 Remember lactose intolerant Allergy Nausea Uncoded 02/16/19 21:52 seasonal Allergy Difficulty Uncoded 11/21/18 22:28 Breathing Home Meds: Home Meds Albuterol [IJD: Ventolin HFA] 2 puff INH QID PRN 03/26/17 [History] Ipratropium/Albuterol Sulfate [Iprat-Albut 0.5-3(2.5) mg/3 ml] 3 ml NEB Q4HR PRN 03/26/17 [History] Eletriptan HBr [Relpax] 20 mg PO DAILY PRN 01/27/18 [History] Ferrous Sulfate [Iron] 325 mg PO TID 01/27/18 [History] Fluticasone/Salmeterol [Advair 250-50 Diskus] 1 puff INH BID 01/27/18 [History] Levothyroxine [Synthroid] 350 mcg PO ACBREAKFAST 01/27/18 [History] Multivitamin [One Daily Multivitamin] 1 tab PO DAILY 01/27/18 [History] Levocetirizine Dihydrochloride 5 mg PO BEDTIME 07/10/18 [History] Montelukast [Singulair] 10 mg PO DAILY 07/10/18 [History] Tiotropium [Spiriva Handihaler] 1 cap INH BEDTIME 07/10/18 [History] Topiramate 25 mg PO DAILY PRN 07/10/18 [History] Folic Acid 1 mg PO DAILY 09/21/18 [History] Dextromethorphan/guaiFENesin [Robitussin DM] 5 ml PO Q4H PRN #100 ml 11/24/18 [ Rx] Levofloxacin 750 mg PO DAILY #7 tablet 11/24/18 [Rx] Nicotine [Habitrol] 14 mg TRDERM DAILY@2100 #14 patch 11/24/18 [Rx] predniSONE [Prednisone] 10 mg PO DAILY #30 tab.ds.pk 11/24/18 [Rx] Past Medical History - Past Health History Medical/Surgical History: Denies Medical/Surgical History HEENT History: Reports: Impaired Vision Cardiovascular History: Reports: None Respiratory History: Reports: Asthma, Bronchitis, Recurrent, Pneumonia, Recurrent, Sleep Apnea Gastrointestinal History: Reports: Cholelithiasis, GERD Genitourinary History: Reports: None PROJECT MANAGEMENT ANALYST History: Reports: Spontaneous Other PROJECT MANAGEMENT ANALYST History: times 3 Musculoskeletal History: Reports: None Neurological History: Reports: Migraines Psychiatric History: Reports: Anxiety, Depression, Learning Disability Endocrine/Metabolic History: Reports: Hypothyroidism, Obesity/BMI 30+ Hematologic History: Reports: Anemia Immunologic History: Reports: None Oncologic (Cancer) History: Reports: None Dermatologic History: Reports: None - Infectious Disease History Infectious Disease History: Reports: Chicken Pox - Past Surgical History Head Surgeries/Procedures: Reports: None HEENT Surgical History: Reports: Oral Surgery GI Surgical History: Reports: Cholecystectomy Female Surgical History: Reports: None Social & Family History - Family History Family Medical History: Noncontributory - Tobacco Use Smoking Status *Q: Current Every Day Smoker Years of Tobacco use: 1 Packs/Tins Daily: 0.5 - Caffeine Use Caffeine Use: Reports: Soda Other Caffeine Use: states takes one pop daily for migraines - Recreational Drug Use Recreational Drug Use: Yes Drug Use in Last 12 Months: Yes Recreational Drug Type: Reports: Marijuana/Hashish Recreational Drug Use Frequency: Daily - Living Situation & Occupation Living situation: Reports: with Family ED ROS GENERAL - Review of Systems Review Of Systems: ROS reveals no pertinent complaints other than HPI. ED EXAM, GENERAL - Physical Exam Exam: See Below Exam Limited By: No Limitations General Appearance: Alert, Anxious, Mild Distress, Obese Eye Exam: Bilateral Eye: EOMI Ears: Normal External Exam, Hearing Grossly Normal Nose: Normal Inspection Throat/Mouth: Normal Inspection Head: Atraumatic, Normocephalic Neck: Normal Inspection Respiratory/Chest: No Respiratory Distress, Wheezing (inspiratory expiratory, diminished) Cardiovascular: Normal Peripheral Pulses, Regular Rate, Rhythm, Tachycardia GI/Abdominal: Normal Bowel Sounds, Soft Neurological: Alert, Oriented, Normal Cognition, Normal Gait Psychiatric: Normal Affect Skin Exam: Warm, Dry, Intact, Normal Color Course - Vital Signs Last Recorded V/S: Last Vital Signs Temp 97.7 F 02/16/19 21:25 Pulse 121 H 02/16/19 21:25 Resp 18 02/16/19 21:25 BP 127/68 02/16/19 21:25 Pulse Ox 94 L 02/16/19 21:25 - Orders/Labs/Meds Orders: Active Orders 24 hr Category Date Time Status RT Aerosol Therapy [RC] ASDIRECTED Care 02/16/19 23:41 Active Meds: Medications Discontinued Medications Generic Name Dose Route Start Last Admin Trade Name Freq PRN Reason Stop Dose Admin Albuterol/Ipratropium 3 ml 02/16/19 23:41 02/16/19 23:50 Duoneb 3.0-0.5 Mg/3 Ml NEB 02/16/19 23:42 3 ml ONETIME ONE Administration Methylprednisolone Sodium Succinate 125 mg 02/16/19 23:41 02/16/19 23:48 Solu-Medrol IM 02/16/19 23:42 125 mg ONETIME ONE Administration - Re-Assessments/Exams Free Text/Narrative Re-Assessment/Exam: 02/17/19 00:41 Sx improved following solumedrol and nebulizer. Departure - Departure Time of Disposition: 00:38 Disposition: Home, Self-Care 01 Condition: Good Clinical Impression: Exacerbation of asthma Qualifiers: Asthma severity: moderate Asthma persistence: persistent Qualified Code(s): J45.41 - Moderate persistent asthma with (acute) exacerbation - Discharge Information *PRESCRIPTION DRUG MONITORING PROGRAM REVIEWED*: No *COPY OF PRESCRIPTION DRUG MONITORING REPORT IN PATIENT NATASHA: No Instructions: Asthma, Adult, [id number] Additional Instructions: continue home medications clinic follow up on Thursday for recheck albuterol nebs every 4 hours as needed prednisone 40mg x 3 day, 30 x 3 days, 20 x 3 days, then 10mg for 3 days - My Orders Last 24 Hours: My Active Orders 02/16/19 23:41 RT Aerosol Therapy [RC] ASDIRECTED - Assessment/Plan Last 24 Hours: My Active Orders 02/16/19 23:41 RT Aerosol Therapy [RC] ASDIRECTED
== END 2019-02-17 00:45 | disposition home or self-care (01) ==
LOC: DL.ED 20:42
DX: J45.41 Moderate persistent asthma with (acute) exacerbation (principal); K21.9 Gastro-esophageal reflux disease without esophagitis; F41.9 Anxiety disorder, unspecified; F32.9 Major depressive disorder, single episode, unspecified; E03.9 Hypothyroidism, unspecified; F17.210 Nicotine dependence, cigarettes, uncomplicated; Z88.5 Allergy status to narcotic agent; Z88.8 Allergy status to other drugs, medicaments and biological substances; Z91.040 Latex allergy status; Z79.899 Other long term (current) drug therapy
CPT/HCPCS: 96372; 99282; J2930; J7620-GY

== ENCOUNTER 2019-03-22 16:57 | Emergency (ER) | payer MEDICAID ==
[2019-03-22 17:40] VITALS: BP 138/89
--- NOTE | 2019-03-22 18:10 | EDM.PDOC ---
ED HPI GENERAL MEDICAL PROBLEM - General Chief Complaint: Lower Extremity Injury/Pain Stated Complaint: POSSIBLE RT FOOT [id number] Time Seen by Provider: 03/22/19 17:55 Source of Information: Reports: Patient History Limitations: Reports: No Limitations - History of Present Illness INITIAL COMMENTS - FREE TEXT/NARRATIVE: This 24 yo female patient reports to the ED with right foot pain due to falling down some concrete steps. The patient reports the incident happened yesterday. The patient attempted to get into the clinic, but was not able to get in today. Onset Date: 03/21/19 Duration: Constant Location: Reports: Lower Extremity, Right Quality: Reports: Ache, Dull Severity: Moderate Improves with: Reports: None Worsens with: Reports: None Context: Reports: Other Associated Symptoms: Reports: No Other Symptoms - Related Data Allergies Allergy/AdvReac Type Severity Reaction Status Date / Time hydrocodone Allergy Hives Verified 03/22/19 17:29 latex Allergy Hives Verified 03/22/19 17:29 soap Allergy Rash Verified 03/22/19 17:29 harvest molds Allergy Cannot Uncoded 03/22/19 17:29 Remember lactose intolerant Allergy Nausea Uncoded 03/22/19 17:29 seasonal Allergy Difficulty Uncoded 03/22/19 17:29 Breathing Home Meds: Home Meds Albuterol [IJD: Ventolin HFA] 2 puff INH QID PRN 03/26/17 [History] Ipratropium/Albuterol Sulfate [Iprat-Albut 0.5-3(2.5) mg/3 ml] 3 ml NEB Q4HR PRN 03/26/17 [History] Eletriptan HBr [Relpax] 20 mg PO DAILY PRN 01/27/18 [History] Ferrous Sulfate [Iron] 325 mg PO TID 01/27/18 [History] Fluticasone/Salmeterol [Advair 250-50 Diskus] 1 puff INH BID 01/27/18 [History] Levothyroxine [Synthroid] 350 mcg PO ACBREAKFAST 01/27/18 [History] Multivitamin [One Daily Multivitamin] 1 tab PO DAILY 01/27/18 [History] Levocetirizine Dihydrochloride 5 mg PO BEDTIME 07/10/18 [History] Montelukast [Singulair] 10 mg PO DAILY 07/10/18 [History] Tiotropium [Spiriva Handihaler] 1 cap INH BEDTIME 07/10/18 [History] Topiramate 25 mg PO DAILY PRN 07/10/18 [History] Folic Acid 1 mg PO DAILY 09/21/18 [History] Nicotine [Habitrol] 14 mg TRDERM DAILY@2100 #14 patch 11/24/18 [Rx] Past Medical History - Past Health History Medical/Surgical History: Denies Medical/Surgical History HEENT History: Reports: Impaired Vision Cardiovascular History: Reports: None Respiratory History: Reports: Asthma, Bronchitis, Recurrent, Pneumonia, Recurrent, Sleep Apnea Gastrointestinal History: Reports: Cholelithiasis, GERD Genitourinary History: Reports: None 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 Other SEED TESTER History: times 3 Musculoskeletal History: Reports: None Neurological History: Reports: Migraines Psychiatric History: Reports: Anxiety, Depression, Learning Disability Endocrine/Metabolic History: Reports: Hypothyroidism, Obesity/BMI 30+ Hematologic History: Reports: Anemia Immunologic History: Reports: None Oncologic (Cancer) History: Reports: None Dermatologic History: Reports: None - Infectious Disease History Infectious Disease History: Reports: Chicken Pox - Past Surgical History Head Surgeries/Procedures: Reports: None HEENT Surgical History: Reports: Oral Surgery GI Surgical History: Reports: Cholecystectomy Female Surgical History: Reports: None Social & Family History - Family History Family Medical History: Noncontributory - Tobacco Use Smoking Status *Q: Never Smoker Second Hand Smoke Exposure: Yes - Caffeine Use Caffeine Use: Reports: Soda Other Caffeine Use: states takes one pop daily for migraines - Living Situation & Occupation Living situation: Reports: with Family Review of Systems - Review of Systems Review Of Systems: ROS reveals no pertinent complaints other than HPI. ED EXAM, GENERAL - Physical Exam Exam: See Below Exam Limited By: No Limitations General Appearance: Alert, WD/WN, No Apparent Distress Eye Exam: Bilateral Eye: EOMI, Normal Inspection, PERRL Ears: Normal External Exam, Normal Canal, Hearing Grossly Normal, Normal TMs Nose: Normal Inspection, Normal Mucosa, No Blood Throat/Mouth: Normal Inspection, Normal Lips, Normal Teeth, Normal Gums, Normal Oropharynx, Normal Voice, No Airway Compromise Head: Atraumatic, Normocephalic Neck: Normal Inspection, Supple, Non-Tender, Full Range of Motion Respiratory/Chest: No Respiratory Distress, Lungs Clear, Normal Breath Sounds, No Accessory Muscle Use, Chest Non-Tender Cardiovascular: Normal Peripheral Pulses, Regular Rate, Rhythm, No Edema, No Gallop, No JVD, No Murmur, No Rub GI/Abdominal: Normal Bowel Sounds, Soft, Non-Tender, No Organomegaly, No Distention, No Abnormal Bruit, No Mass (Female) Exam: Deferred Rectal (Female) Exam: Deferred Back Exam: Normal Inspection, Full Range of Motion, NT Extremities: Other (right foot pain (over arch)) Neurological: Alert, Oriented, CN II-XII Intact, Normal Cognition, Normal Gait, Normal Reflexes, No Motor/Sensory Deficits Psychiatric: Normal Affect, Normal Mood Skin Exam: Warm, Dry, Intact, Normal Color, No Rash Lymphatic: No Adenopathy Course - Vital Signs Last Recorded V/S: Last Vital Signs Temp 36.2 C 03/22/19 17:23 Pulse 98 03/22/19 17:23 Resp 20 03/22/19 17:23 BP 138/89 03/22/19 17:23 Pulse Ox 97 03/22/19 17:23 - Orders/Labs/Meds Orders: Active Orders 24 hr Category Date Time Status Foot Comp Min 3V Rt [CR] Urgent Exams 03/22/19 17:33 Taken Departure - Departure Time of Disposition: 18:07 Disposition: Home, Self-Care 01 Condition: Good Clinical Impression: Plantar fasciitis - Discharge Information *PRESCRIPTION DRUG MONITORING PROGRAM REVIEWED*: Not Applicable *COPY OF PRESCRIPTION DRUG MONITORING REPORT IN PATIENT NATASHA: Not Applicable Instructions: Plantar Fasciitis Forms: ED Department Discharge Care Plan Goals: The patient was advised of the examination and x-ray results during the visit. The patient was advised to rest and ice the area of concern. The patient should avoid walking bare footed. The patient should wear shoes with good arch support. If the patient has any additional symptoms or concerns, the patient should follow-up with her primary care facility or return to the emergency department. - My Orders Last 24 Hours: My Active Orders 03/22/19 17:33 Foot Comp Min 3V Rt [CR] Urgent - Assessment/Plan Last 24 Hours: My Active Orders 03/22/19 17:33 Foot Comp Min 3V Rt [CR] Urgent
== END 2019-03-22 18:20 | disposition home or self-care (01) ==
LOC: DL.ED 16:57
DX: M72.2 Plantar fascial fibromatosis (principal); J45.909 Unspecified asthma, uncomplicated; K21.9 Gastro-esophageal reflux disease without esophagitis; F41.9 Anxiety disorder, unspecified; F32.9 Major depressive disorder, single episode, unspecified; E03.9 Hypothyroidism, unspecified; E66.9 Obesity, unspecified; Z79.899 Other long term (current) drug therapy; Z91.048 Other nonmedicinal substance allergy status; Z88.5 Allergy status to narcotic agent; Z91.040 Latex allergy status; Z68.44 Body mass index [BMI] 60.0-69.9, adult
CPT/HCPCS: 73630-RT; 99283-25

== ENCOUNTER 2019-05-28 07:49 | Emergency (ER) | payer MEDICAID ==
--- NOTE | 2019-05-28 08:15 | EDM.PDOC ---
ED HPI GENERAL MEDICAL PROBLEM - General Chief Complaint: ENT Problem Stated Complaint: THROAT PAIN Time Seen by Provider: 05/28/19 08:05 Source of Information: Reports: Patient History Limitations: Reports: No Limitations - History of Present Illness INITIAL COMMENTS - FREE TEXT/NARRATIVE: This 24 yo female patient reports to the ED with a sore throat for the past 3 days, post nasal drip and cough. The patient reports she has taken throat spray , Excedrin, ibuprofen and Nyquil for temporary symptom relief. The patient reports her throat hurt too much to take her medications this morning. Onset Date: 05/26/19 Duration: Constant, Getting Worse Location: Reports: Head, Neck Quality: Reports: Other Severity: Moderate Improves with: Reports: Medication Worsens with: Reports: None Context: Reports: Other Associated Symptoms: Reports: Cough Treatments PHOTO PRODUCER: Reports: Aspirin, NSAIDS, Other Medication(s) Throat Pain Score (Numeric/FACES): 5 - Related Data Allergies Allergy/AdvReac Type Severity Reaction Status Date / Time hydrocodone Allergy Hives Verified 05/28/19 07:56 latex Allergy Hives Verified 05/28/19 07:56 soap Allergy Rash Verified 05/28/19 07:56 harvest molds Allergy Cannot Uncoded 05/28/19 07:56 Remember lactose intolerant Allergy Nausea Uncoded 05/28/19 07:56 seasonal Allergy Difficulty Uncoded 05/28/19 07:56 Breathing Home Meds: Home Meds Albuterol [IJD: Ventolin HFA] 2 puff INH QID PRN 03/26/17 [History] Ipratropium/Albuterol Sulfate [Iprat-Albut 0.5-3(2.5) mg/3 ml] 3 ml NEB Q4HR PRN 03/26/17 [History] Eletriptan HBr [Relpax] 20 mg PO DAILY PRN 01/27/18 [History] Ferrous Sulfate [Iron] 325 mg PO TID 01/27/18 [History] Fluticasone/Salmeterol [Advair 250-50 Diskus] 1 puff INH BID 01/27/18 [History] Levothyroxine [Synthroid] 350 mcg PO ACBREAKFAST 01/27/18 [History] Multivitamin [One Daily Multivitamin] 1 tab PO DAILY 01/27/18 [History] Levocetirizine Dihydrochloride 5 mg PO BEDTIME 07/10/18 [History] Montelukast [Singulair] 10 mg PO DAILY 07/10/18 [History] Tiotropium [Spiriva Handihaler] 1 cap INH BEDTIME 07/10/18 [History] Topiramate 25 mg PO DAILY PRN 07/10/18 [History] Folic Acid 1 mg PO DAILY 09/21/18 [History] Nicotine [Habitrol] 14 mg TRDERM DAILY@2100 #14 patch 11/24/18 [Rx] Past Medical History - Past Health History Medical/Surgical History: Denies Medical/Surgical History HEENT History: Reports: Impaired Vision Cardiovascular History: Reports: None Respiratory History: Reports: Asthma, Bronchitis, Recurrent, Pneumonia, Recurrent, Sleep Apnea Gastrointestinal History: Reports: Cholelithiasis, GERD Genitourinary History: Reports: None CULVERT INSTALLER 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: Reports: Spontaneous Other CULVERT INSTALLER History: times 3 Musculoskeletal History: Reports: None Neurological History: Reports: Migraines Psychiatric History: Reports: Anxiety, Depression, Learning Disability Endocrine/Metabolic History: Reports: Hypothyroidism, Obesity/BMI 30+ Hematologic History: Reports: Anemia Immunologic History: Reports: None Oncologic (Cancer) History: Reports: None Dermatologic History: Reports: None - Infectious Disease History Infectious Disease History: Reports: Chicken Pox - Past Surgical History Head Surgeries/Procedures: Reports: None HEENT Surgical History: Reports: Oral Surgery GI Surgical History: Reports: Cholecystectomy Female Surgical History: Reports: None Social & Family History - Family History Family Medical History: Noncontributory - Tobacco Use Smoking Status *Q: Current Some Day Smoker Years of Tobacco use: 1 Packs/Tins Daily: 0.2 - Caffeine Use Caffeine Use: Reports: None Other Caffeine Use: states takes one pop daily for migraines - Recreational Drug Use Recreational Drug Use: No - Living Situation & Occupation Living situation: Reports: with Family ED ROS ENT - Review of Systems Review Of Systems: ROS reveals no pertinent complaints other than HPI. ED EXAM, ENT - Physical Exam Exam: See Below Exam Limited By: No Limitations General Appearance: Alert, WD/WN, No Apparent Distress, Obese Eye Exam: Bilateral Eye: EOMI, Normal Inspection, PERRL Ears: Normal External Exam, Normal Canal, Hearing Grossly Normal, Normal TMs Nose: Normal Inspection, Normal Mucousa, No Blood Mouth/Throat: Pharyngeal Erythema, Tonsillar Erythema. No: Peritonsillar Mass, Tonsillar Exudates Head: Atraumatic, Normocephalic Neck: Normal Inspection, Supple, Non-Tender, Full Range of Motion Respiratory/Chest: No Respiratory Distress, Lungs Clear, Normal Breath Sounds, No Accessory Muscle Use, Chest Non-Tender Cardiovascular: Normal Peripheral Pulses, Regular Rate, Rhythm, No Edema, No Gallop, No JVD, No Murmur, No Rub GI/Abdominal: Normal Bowel Sounds, Soft, Non-Tender, No Organomegaly, No Distention, No Abnormal Bruit, No Mass (Female) Exam: Deferred Rectal (Female) Exam: Deferred Back: Normal Inspection, Full Range of Motion Extremities: Normal Inspection, Normal Range of Motion, Non-Tender, No Pedal Edema, Normal Capillary Refill Neurological: Alert, Oriented, CN II-XII Intact, Normal Cognition, Normal Gait, Normal Reflexes, No Motor/Sensory Deficits Psychiatric: Normal Affect, Normal Mood Skin: Warm, Dry, Intact, Normal Color, No Rash Lymphatic: No Adenopathy Course - Vital Signs Last Recorded V/S: Last Vital Signs Temp 36.2 C 05/28/19 07:56 Pulse 104 H 05/28/19 07:56 Resp 20 05/28/19 07:56 BP 125/103 H 05/28/19 07:56 Pulse Ox 95 05/28/19 07:56 - Orders/Labs/Meds Orders: Active Orders 24 hr Category Date Time Status CULTURE STREP A CONFIRMATION [RM] Stat Lab 05/28/19 08:00 Results STREP SCRN A RAPID W CULT CONF [RM] Stat Lab 05/28/19 08:00 Received Departure - Departure Time of Disposition: 08:30 Disposition: Home, Self-Care 01 Condition: Fair Clinical Impression: Pharyngitis Qualifiers: Pharyngitis/tonsillitis etiology: unspecified etiology Qualified Code(s): J02.9 - Acute pharyngitis, unspecified - Discharge Information *PRESCRIPTION DRUG MONITORING PROGRAM REVIEWED*: Not Applicable *COPY OF PRESCRIPTION DRUG MONITORING REPORT IN PATIENT NATASHA: Not Applicable Instructions: Pharyngitis, [id number], Viral Respiratory Infection, Easy-To- Read Forms: ED Department Discharge Care Plan Goals: The patient was advised of the examination and lab results during the visit. The patient was encouraged to increase her oral fluid intake over the next 48 hours. The patient may continue to use [id number] medications for temporary symptom relief. If the patient has any additional symptoms or concerns , the patient should either return to the emergency department or follow-up with her primary care facility. - My Orders Last 24 Hours: My Active Orders 05/28/19 08:00 CULTURE STREP A CONFIRMATION [RM] Stat STREP SCRN A RAPID W CULT CONF [RM] Stat - Assessment/Plan Last 24 Hours: My Active Orders 05/28/19 08:00 CULTURE STREP A CONFIRMATION [RM] Stat STREP SCRN A RAPID W CULT CONF [RM] Stat
[2019-05-28 08:33] VITALS: BP 118/82
== END 2019-05-28 08:35 | disposition home or self-care (01) ==
LOC: DL.ED 07:49
DX: J02.9 Acute pharyngitis, unspecified (principal); E03.9 Hypothyroidism, unspecified; E66.9 Obesity, unspecified; J45.909 Unspecified asthma, uncomplicated; Z98.890 Other specified postprocedural states; Z90.49 Acquired absence of other specified parts of digestive tract; Z79.899 Other long term (current) drug therapy; Z91.040 Latex allergy status; Z88.8 Allergy status to other drugs, medicaments and biological substances; Z91.011 Allergy to milk products; Z91.09 Other allergy status, other than to drugs and biological substances
CPT/HCPCS: 87081; 87430; 99283

== ENCOUNTER 2019-06-10 04:37 | Inpatient (IN) | payer MEDICAID ==
[2019-06-10] MEDS ORDERED: Sodium Chloride 0.9% 1,000 ML IV ONE (04:48)
[2019-06-10] MEDS ORDERED: methylPREDNISolone Sodium Succinate 125 MG/2 ML SDV IVPUSH ONE (04:48)
[2019-06-10] MEDS ORDERED: Albuterol/Ipratropium 3.0-0.5 MG/3 ML Neb Soln NEB ONE (04:48)
[2019-06-10 05:21] LABS: ANION GAP 14.4; CHLORIDE,CL 106 mmol/L (101-111); SODIUM,NA 141 mmol/L (135-145)
[2019-06-10] MEDS ORDERED: Potassium Chloride 10 MEQ Tab.ER PO ONE (05:47)
--- NOTE | 2019-06-10 05:51 | EDM.PDOC ---
ED HPI GENERAL MEDICAL PROBLEM - General Chief Complaint: Respiratory Problem Stated Complaint: CANT BREATHE Time Seen by Provider: 06/10/19 04:49 Source of Information: Reports: Patient History Limitations: Reports: No Limitations - History of Present Illness INITIAL COMMENTS - FREE TEXT/NARRATIVE: ED ambulatory with c/o difficulty breathing, Cough congestion, , asthma bothering her x 4 weeks, worse tonight. In clinic yesterday started on z martha and prednisone, . Tried inhalers and nebs and not helping. No sore throat no fevers, nasal congestion, cough productive at times. No GI sx. 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) Middle Chest Pain Score (Numeric/FACES): 4 - Related Data Allergies Allergy/AdvReac Type Severity Reaction Status Date / Time hydrocodone Allergy Hives Verified 06/10/19 04:45 latex Allergy Hives Verified 06/10/19 04:45 soap Allergy Rash Verified 06/10/19 04:45 harvest molds Allergy Cannot Uncoded 06/10/19 04:45 Remember lactose intolerant Allergy Nausea Uncoded 06/10/19 04:45 seasonal Allergy Difficulty Uncoded 06/10/19 04:45 Breathing Home Meds: Home Meds Albuterol [IJD: Ventolin HFA] 2 puff INH QID PRN 03/26/17 [History] Ipratropium/Albuterol Sulfate [Iprat-Albut 0.5-3(2.5) mg/3 ml] 3 ml NEB Q4HR PRN 03/26/17 [History] Eletriptan HBr [Relpax] 20 mg PO DAILY PRN 01/27/18 [History] Ferrous Sulfate [Iron] 325 mg PO TID 01/27/18 [History] Fluticasone/Salmeterol [Advair 250-50 Diskus] 1 puff INH BID 01/27/18 [History] Levothyroxine [Synthroid] 350 mcg PO ACBREAKFAST 01/27/18 [History] Multivitamin [One Daily Multivitamin] 1 tab PO DAILY 01/27/18 [History] Levocetirizine Dihydrochloride 5 mg PO BEDTIME 07/10/18 [History] Montelukast [Singulair] 10 mg PO DAILY 07/10/18 [History] Tiotropium [Spiriva Handihaler] 1 cap INH BEDTIME 07/10/18 [History] Topiramate 25 mg PO DAILY PRN 07/10/18 [History] Folic Acid 1 mg PO DAILY 09/21/18 [History] Nicotine [Habitrol] 14 mg TRDERM DAILY@2100 #14 patch 11/24/18 [Rx] Past Medical History - Past Health History Medical/Surgical History: Denies Medical/Surgical History HEENT History: Reports: Impaired Vision Cardiovascular History: Reports: None Respiratory History: Reports: Asthma, Bronchitis, Recurrent, Pneumonia, Recurrent, Sleep Apnea Gastrointestinal History: Reports: Cholelithiasis, GERD Genitourinary History: Reports: None 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 Musculoskeletal History: Reports: None Neurological History: Reports: Migraines Psychiatric History: Reports: Anxiety, Depression, Learning Disability Endocrine/Metabolic History: Reports: Hypothyroidism, Obesity/BMI 30+ Hematologic History: Reports: Anemia Immunologic History: Reports: None Oncologic (Cancer) History: Reports: None Dermatologic History: Reports: None - Infectious Disease History Infectious Disease History: Reports: Chicken Pox - Past Surgical History Head Surgeries/Procedures: Reports: None HEENT Surgical History: Reports: Oral Surgery GI Surgical History: Reports: Cholecystectomy Female Surgical History: Reports: None Social & Family History - Family History Family Medical History: Noncontributory - Tobacco Use Smoking Status *Q: Unknown Ever Smoked - Caffeine Use Caffeine Use: Reports: Coffee, Soda Other Caffeine Use: states takes one pop daily for migraines - Recreational Drug Use Recreational Drug Use: Yes Drug Use in Last 12 Months: Yes Recreational Drug Type: Reports: Marijuana/Hashish Recreational Drug Use Frequency: Monthly - Living Situation & Occupation Living situation: Reports: with Family ED ROS GENERAL - Review of Systems Review Of Systems: ROS reveals no pertinent complaints other than HPI. ED EXAM, GENERAL - Physical Exam Exam: See Below Exam Limited By: No Limitations General Appearance: Alert, Moderate Distress, Obese Eye Exam: Bilateral Eye: EOMI Ears: Normal External Exam Nose: Normal Inspection Throat/Mouth: Normal Inspection Head: Atraumatic, Normocephalic Neck: Normal Inspection Respiratory/Chest: Decreased Breath Sounds, Wheezing (right greater than left, fine expiratory), Other (harsh bronchial cough) Cardiovascular: Normal Peripheral Pulses, Regular Rate, Rhythm, Tachycardia GI/Abdominal: Soft Extremities: Normal Inspection, Normal Range of Motion Neurological: Alert, Oriented Psychiatric: Normal Affect, Anxious Skin Exam: Warm, Dry, Intact, Pallor Course - Vital Signs Last Recorded V/S: Last Vital Signs Temp 97.9 F 06/10/19 04:46 Pulse 127 H 06/10/19 04:46 Resp 22 H 06/10/19 04:46 BP 129/85 06/10/19 04:46 Pulse Ox 91 L 06/10/19 05:10 - Orders/Labs/Meds Orders: Active Orders 24 hr Category Date Time Status RT Aerosol Therapy [RC] ASDIRECTED Care 06/10/19 04:48 Active RT Aerosol Therapy [RC] ASDIRECTED Care 06/10/19 05:48 Active RT Aerosol Therapy [RC] ASDIRECTED Care 06/10/19 06:19 Active CXR [Chest 1V Frontal] [CR] Urgent Exams 06/10/19 04:52 Taken ABG [BLOOD GAS ARTERIAL] [BG] Stat Lab 06/10/19 04:55 Ordered CULTURE BLOOD [BC] Stat Lab 06/10/19 04:50 Received Sodium Chloride 0.9% [Normal Saline] 1,000 ml Med 06/10/19 04:48 Active IV .BOLUS Medication Orders Sodium Chloride (Normal Saline) 1,000 mls @ 250 mls/hr IV .BOLUS ONE Stop: 06/10/19 08:47 Last Admin: 06/10/19 04:59 Dose: 250 mls/hr Labs: Laboratory Tests 06/10/19 06/10/19 06/10/19 Range/Units 04:50 04:50 04:50 WBC 18.4 H (5.0-10.0) 10^3/uL RBC 5.33 (4.2-5.4) 10^6/uL Hgb 11.0 L (12.0-16.0) g/dL Hct 36.9 L (37.0-47.0) % MCV 69.2 L (80-100) fL MCH 20.6 L (27.0-34.0) pg MCHC 29.8 L (33.0-35.0) g/dL Plt Count 428 (150-450) 10^3/uL Neut % (Auto) 78.9 H (42.2-75.2) % Lymph % (Auto) 13.4 L (20.5-50.1) % [place] % (Auto) 6.3 (2-8) % Eos % (Auto) 1.2 (1.0-3.0) % Baso % (Auto) 0.2 (0.0-1.0) % Sodium 141 (135-145) mmol/L Potassium 3.4 L (3.6-5.0) mmol/L Chloride 106 (101-111) mmol/L Carbon Dioxide 24.0 (21.0-31.0) mmol/L Anion Gap 14.4 BUN 14 (7-18) mg/dL Creatinine 0.8 (0.6-1.3) mg/dL Est Cr Clr Drug Dosing 103.26 mL/min Estimated GFR (MDRD) > 60 BUN/Creatinine Ratio 17.50 Glucose 117 H (74-105) mg/dL Lactic Acid 1.9 (0.5-2.2) mmol/L Calcium 8.8 (8.4-10.2) mg/dl Magnesium (1.8-2.5) mg/dL Total Bilirubin 0.3 (0.2-1.0) mg/dL AST 16 (10-42) IU/L ALT 18 (10-60) IU/L Alkaline Phosphatase 94 (42-121) IU/L Total Protein 7.8 (6.7-8.2) g/dl Albumin 3.8 (3.2-5.5) g/dl Globulin 4.0 Albumin/Globulin Ratio 0.95 06/10/19 Range/Units 04:50 WBC (5.0-10.0) 10^3/uL RBC (4.2-5.4) 10^6/uL Hgb (12.0-16.0) g/dL Hct (37.0-47.0) % MCV (80-100) fL MCH (27.0-34.0) pg MCHC (33.0-35.0) g/dL Plt Count (150-450) 10^3/uL Neut % (Auto) (42.2-75.2) % Lymph % (Auto) (20.5-50.1) % [place] % (Auto) (2-8) % Eos % (Auto) (1.0-3.0) % Baso % (Auto) (0.0-1.0) % Sodium (135-145) mmol/L Potassium (3.6-5.0) mmol/L Chloride (101-111) mmol/L Carbon Dioxide (21.0-31.0) mmol/L Anion Gap BUN (7-18) mg/dL Creatinine (0.6-1.3) mg/dL Est Cr Clr Drug Dosing mL/min Estimated GFR (MDRD) BUN/Creatinine Ratio Glucose (74-105) mg/dL Lactic Acid (0.5-2.2) mmol/L Calcium (8.4-10.2) mg/dl Magnesium 1.9 (1.8-2.5) mg/dL Total Bilirubin (0.2-1.0) mg/dL AST (10-42) IU/L ALT (10-60) IU/L Alkaline Phosphatase (42-121) IU/L Total Protein (6.7-8.2) g/dl Albumin (3.2-5.5) g/dl Globulin Albumin/Globulin Ratio Meds: Medications Generic Name Dose Route Start Last Admin Trade Name Freq PRN Reason Stop Dose Admin Sodium Chloride 1,000 mls @ 250 mls/hr 06/10/19 04:48 06/10/19 04:59 Normal Saline IV 06/10/19 08:47 250 mls/hr .BOLUS ONE Administration Discontinued Medications Generic Name Dose Route Start Last Admin Trade Name Freq PRN Reason Stop Dose Admin Albuterol 2.5 mg 06/10/19 05:47 06/10/19 06:22 Proventil Neb Soln NEB 06/10/19 05:48 Not Given ONETIME ONE Albuterol/Ipratropium 3 ml 06/10/19 04:48 06/10/19 04:59 Duoneb 3.0-0.5 Mg/3 Ml NEB 06/10/19 04:49 3 ml ONETIME ONE Administration Methylprednisolone Sodium Succinate 125 mg 06/10/19 04:48 06/10/19 04:59 Solu-Medrol IVPUSH 06/10/19 04:49 125 mg ONETIME ONE Administration Potassium Chloride 20 meq 06/10/19 05:47 06/10/19 06:03 Klor-Con 10 PO 06/10/19 05:48 20 meq ONETIME ONE Administration Racepinephrine 0.5 ml 06/10/19 06:19 06/10/19 06:25 S-2 2.25% NEB 06/10/19 06:20 0.5 ml ONETIME ONE Administration - Radiology Interpretation Free Text/Narrative:: [facility] [place] [facility] Final Radiology Report Call: [phone] assistance Online chat: [email or web address] Name: HERMES WANG Age: 24Years F Date: 06/10/2019 SSN: -- : [id number] Study: XR CHEST 1 VIEW FRONTAL Requesting Physician: KELECHI CHAMBERLAIN Images: 2 Addl Studies: Provided Clinical History: Contrast: Contrast Medium: Contrast Amount: Contrast Method: CONFIDENTIALITY STATEMENT This report is intended only for use by the referring physician, and only in accordance with law. If you received this in error, call [phone]. Page 1 of 1 EXAM: XR Chest, 1 View EXAM DATE/TIME: 06/10/2019 5:15 AM CLINICAL HISTORY: 24 years old, female; Other: Asthma, exacerbation, hypoxia TECHNIQUE: Imaging protocol: XR of the chest Views: 1 view. COMPARISON: CR Chest 2V 11/21/2018 8:49 PM FINDINGS: Lungs: There is peribronchial cuffing. No focal consolidation. Pleural space: Unremarkable. No pleural effusion. No pneumothorax. Heart/Mediastinum: Unremarkable. No cardiomegaly. Bones/joints: Unremarkable. IMPRESSION: Peribronchial cuffing may indicate reactive airways disease or acute viral illness. Thank you for allowing us to participate in the care of your patient. Dictated and Authenticated by: Suzanne Horton MD 06/10/2019 5:46 AM Central Time ([place] & [place] - Re-Assessments/Exams Free Text/Narrative Re-Assessment/Exam: 06/10/19 06:30 Racemic neb, imporved air movement throughout, wheezing wheezing bilateral. Sats up to [address] Cruz accepting patient for admission. Departure - Departure Time of Disposition: 06:32 Disposition: Admitted As Inpatient 68 Condition: Good Clinical Impression: Hypoxemia Exacerbation of asthma Qualifiers: Asthma severity: moderate Asthma persistence: persistent Qualified Code(s): J45.41 - Moderate persistent asthma with (acute) exacerbation - Discharge Information *PRESCRIPTION DRUG MONITORING PROGRAM REVIEWED*: No *COPY OF PRESCRIPTION DRUG MONITORING REPORT IN PATIENT NATASHA: No Forms: ED Department Discharge - My Orders Last 24 Hours: My Active Orders 06/10/19 04:48 RT Aerosol Therapy [RC] ASDIRECTED Sodium Chloride 0.9% [Normal Saline] 1,000 ml IV .BOLUS 06/10/19 04:50 CULTURE BLOOD [BC] Stat 06/10/19 04:52 CXR [Chest 1V Frontal] [CR] Urgent 06/10/19 04:55 ABG [BLOOD GAS ARTERIAL] [BG] Stat 06/10/19 05:48 RT Aerosol Therapy [RC] ASDIRECTED 06/10/19 06:19 RT Aerosol Therapy [RC] ASDIRECTED - Assessment/Plan Last 24 Hours: My Active Orders 06/10/19 04:48 RT Aerosol Therapy [RC] ASDIRECTED Sodium Chloride 0.9% [Normal Saline] 1,000 ml IV .BOLUS 06/10/19 04:50 CULTURE BLOOD [BC] Stat 06/10/19 04:52 CXR [Chest 1V Frontal] [CR] Urgent 06/10/19 04:55 ABG [BLOOD GAS ARTERIAL] [BG] Stat 06/10/19 05:48 RT Aerosol Therapy [RC] ASDIRECTED 06/10/19 06:19 RT Aerosol Therapy [RC] ASDIRECTED
[2019-06-10] MEDS: Albuterol 0.083% 2.5 MG/3 ML Neb Soln NEB ONE ×2 (06:03→06:22)
[2019-06-10] MEDS ORDERED: Racepinephrine 2.25% 0.5 ML Neb Soln NEB ONE (06:19)
[2019-06-10] MEDS ORDERED: Albuterol/Ipratropium 3.0-0.5 MG/3 ML Neb Soln NEB PRN (08:15)
[2019-06-10] MEDS ORDERED: Ondansetron 4 MG Tab.DIS PO PRN (08:20)
[2019-06-10] MEDS ORDERED: Docusate Sodium 100 MG Cap PO PRN (08:20)
[2019-06-10] MEDS ORDERED: Zolpidem 5 MG Tab PO PRN (08:20)
[2019-06-10] MEDS: Azithromycin 500 MG in Sodium Chloride 0.9% 250 ML IV SCH (09:05)
[2019-06-10] MEDS: Budesonide 0.5 MG/2 ML Neb Susp NEB SCH ×2 (09:40→17:25)
[2019-06-10] MEDS: Albuterol/Ipratropium 3.0-0.5 MG/3 ML Neb Soln NEB SCH ×3 (09:41→17:00)
[2019-06-10] MEDS: cefTRIAXone 1 GM in Sodium Chloride 0.9% 50 ML IV SCH (10:40)
[2019-06-10] MEDS: Montelukast 10 MG Tab PO SCH (11:00)
[2019-06-10] MEDS ORDERED: ETHINYL ESTRADIOL PO SCH (11:45)
[2019-06-10] MEDS ORDERED: DROSPIRENONE PO SCH (11:45)
[2019-06-10] MEDS ORDERED: [UNRECOGNIZED DRUG - OTHER] PO SCH (11:45)
--- NOTE | 2019-06-10 11:49 | PCM.HP ---
H&P History of Present Illness - General Date of Service: 06/10/19 Admit Problem/Dx: Admission Diagnosis/Problem Admission Diagnosis/Problem Dyspnea or other respiratory complaints Source of Information: Patient - History of Present Illness Initial Comments - Free Text/Narative: 24-year-old lady with a history of obesity, hypothyroidism, asthma. She usually has acute asthma exacerbations in the fall. She developed a sore throat about 4 weeks prior presentation. The day prior to presentation she was getting increasingly short of breath. Went to the clinic. She was given Z-Justino and oral prednisone. Her breathing got worse overnight. Shortness of breath was moderate, associated with wheezing, associated with anxiety. There was no chest pain. No fever She came to the emergency room. She was noted to have low oxygen saturations. Oxygen saturations below 90 on room air. She was started on oxygen up to 4 L/m She denies chest pain. She was given steroid and DuoNeb. She improved with that Middle Chest Pain Score (Numeric/FACES): 4 - Related Data Allergies/Adverse Reactions: Allergies Allergy/AdvReac Type Severity Reaction Status Date / Time hydrocodone Allergy Hives Verified 06/10/19 04:45 latex Allergy Hives Verified 06/10/19 04:45 soap Allergy Rash Verified 06/10/19 04:45 harvest molds Allergy Cannot Uncoded 06/10/19 04:45 Remember lactose intolerant Allergy Nausea Uncoded 06/10/19 04:45 seasonal Allergy Difficulty Uncoded 06/10/19 04:45 Breathing Home Medications: Home Meds Levocetirizine Dihydrochloride 5 mg PO BEDTIME 07/10/18 [History] Montelukast [Singulair] 10 mg PO DAILY 07/10/18 [History] Topiramate 50 mg PO DAILY 07/10/18 [History] Folic Acid 1 mg PO DAILY 09/21/18 [History] Albuterol Sulfate [Proair Hfa] 2 inh PO Q4H PRN 06/10/19 [History] Ergocalciferol (Vitamin D2) [Vitamin D2] 50,000 unit PO .WEEKLY 06/10/19 [ History] Ethinyl Estradiol/Drospirenone [Bette 3 mg-0.02 mg Tablet] 1 tab PO DAILY [History] Fluticasone/Salmeterol [Advair 500-50] 1 puff INH BID 06/10/19 [History] Levothyroxine Sodium [Synthroid] 300 mcg PO ACBREAKFAST 06/10/19 [History] Levothyroxine [Synthroid] 50 mcg PO ACBREAKFAST 06/10/19 [History] Sertraline [Zoloft] 100 mg PO DAILY 06/10/19 [History] Tiotropium [Spiriva HandiHaler] 18 mcg INH DAILY 06/10/19 [History] hydrOXYzine HCl [Hydroxyzine HCl] 25 mg PO Q8H PRN 06/10/19 [History] Past Medical History - Past Health History Medical/Surgical History: Denies Medical/Surgical History HEENT History: Reports: Impaired Vision Cardiovascular History: Reports: None Respiratory History: Reports: Asthma, Bronchitis, Recurrent, Pneumonia, Recurrent, Sleep Apnea Gastrointestinal History: Reports: Cholelithiasis, GERD Genitourinary History: Reports: None 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 Musculoskeletal History: Reports: None Neurological History: Reports: Migraines Psychiatric History: Reports: Anxiety, Depression, Learning Disability Endocrine/Metabolic History: Reports: Hypothyroidism, Obesity/BMI 30+ Hematologic History: Reports: Anemia Immunologic History: Reports: None Oncologic (Cancer) History: Reports: None Dermatologic History: Reports: None - Infectious Disease History Infectious Disease History: Reports: Chicken Pox - Past Surgical History Head Surgeries/Procedures: Reports: None HEENT Surgical History: Reports: Oral Surgery GI Surgical History: Reports: Cholecystectomy Female Surgical History: Reports: None Social & Family History - Family History Family Medical History: Noncontributory - Tobacco Use Smoking Status *Q: Unknown Ever Smoked - Caffeine Use Caffeine Use: Reports: Coffee, Soda Other Caffeine Use: states takes one pop daily for migraines - Recreational Drug Use Recreational Drug Use: Yes Drug Use in Last 12 Months: Yes Recreational Drug Type: Reports: Marijuana/Hashish Recreational Drug Use Frequency: Monthly - Living Situation & Occupation Living situation: Reports: with Family H&P Review of Systems - Review of Systems: Review Of Systems: See Below General: Denies: Fever HEENT: Reports: Sore Throat Pulmonary: Reports: Shortness of Breath, Wheezing, Cough. Denies: Sputum Cardiovascular: Denies: Chest Pain, Edema Gastrointestinal: Denies: Abdominal Pain Genitourinary: Denies: Dysuria Psychiatric: Denies: Confusion Exam - Exam Exam: See Below - Vital Signs Vital Signs: Last Vital Signs Temp 36.7 C 06/10/19 07:30 Pulse 97 06/10/19 07:30 Resp 24 H 06/10/19 07:30 BP 122/68 06/10/19 07:30 Pulse Ox 93 L 06/10/19 08:20 Weight: 156.852 kg - Exam General: Alert, Oriented Neck: Supple Lungs: Wheezing Cardiovascular: Regular Rate, Regular Rhythm GI/Abdominal Exam: Normal Bowel Sounds, Soft, Non-Tender Extremities: No Pedal Edema - Patient Data Lab Results Last 24 hrs: Laboratory Results - last 24 hr 06/10/19 06/10/19 06/10/19 Range/Units 04:50 04:50 04:50 WBC 18.4 H (5.0-10.0) 10^3/uL RBC 5.33 (4.2-5.4) 10^6/uL Hgb 11.0 L (12.0-16.0) g/dL Hct 36.9 L (37.0-47.0) % MCV 69.2 L (80-100) fL MCH 20.6 L (27.0-34.0) pg MCHC 29.8 L (33.0-35.0) g/dL Plt Count 428 (150-450) 10^3/uL Neut % (Auto) 78.9 H (42.2-75.2) % Lymph % (Auto) 13.4 L (20.5-50.1) % [place] % (Auto) 6.3 (2-8) % Eos % (Auto) 1.2 (1.0-3.0) % Baso % (Auto) 0.2 (0.0-1.0) % Sodium 141 (135-145) mmol/L Potassium 3.4 L (3.6-5.0) mmol/L Chloride 106 (101-111) mmol/L Carbon Dioxide 24.0 (21.0-31.0) mmol/L Anion Gap 14.4 BUN 14 (7-18) mg/dL Creatinine 0.8 (0.6-1.3) mg/dL Est Cr Clr Drug Dosing 103.26 mL/min Estimated GFR (MDRD) > 60 BUN/Creatinine Ratio 17.50 Glucose 117 H (74-105) mg/dL Lactic Acid 1.9 (0.5-2.2) mmol/L Calcium 8.8 (8.4-10.2) mg/dl Magnesium (1.8-2.5) mg/dL Total Bilirubin 0.3 (0.2-1.0) mg/dL AST 16 (10-42) IU/L ALT 18 (10-60) IU/L Alkaline Phosphatase 94 (42-121) IU/L Total Protein 7.8 (6.7-8.2) g/dl Albumin 3.8 (3.2-5.5) g/dl Globulin 4.0 Albumin/Globulin Ratio 0.95 06/10/19 Range/Units 04:50 WBC (5.0-10.0) 10^3/uL RBC (4.2-5.4) 10^6/uL Hgb (12.0-16.0) g/dL Hct (37.0-47.0) % MCV (80-100) fL MCH (27.0-34.0) pg MCHC (33.0-35.0) g/dL Plt Count (150-450) 10^3/uL Neut % (Auto) (42.2-75.2) % Lymph % (Auto) (20.5-50.1) % [place] % (Auto) (2-8) % Eos % (Auto) (1.0-3.0) % Baso % (Auto) (0.0-1.0) % Sodium (135-145) mmol/L Potassium (3.6-5.0) mmol/L Chloride (101-111) mmol/L Carbon Dioxide (21.0-31.0) mmol/L Anion Gap BUN (7-18) mg/dL Creatinine (0.6-1.3) mg/dL Est Cr Clr Drug Dosing mL/min Estimated GFR (MDRD) BUN/Creatinine Ratio Glucose (74-105) mg/dL Lactic Acid (0.5-2.2) mmol/L Calcium (8.4-10.2) mg/dl Magnesium 1.9 (1.8-2.5) mg/dL Total Bilirubin (0.2-1.0) mg/dL AST (10-42) IU/L ALT (10-60) IU/L Alkaline Phosphatase (42-121) IU/L Total Protein (6.7-8.2) g/dl Albumin (3.2-5.5) g/dl Globulin Albumin/Globulin Ratio Result Diagrams: 06/10/19 04:50 06/10/19 04:50 - Problem List (1) Acute asthma SNOMED Code(s): 195852931 ICD Code: J45.909 - UNSPECIFIED ASTHMA, UNCOMPLICATED Status: Acute Current Visit: No (2) Hypoxemia SNOMED Code(s): 414123122 ICD Code: R09.02 - HYPOXEMIA Status: Acute Current Visit: No Problem List Initiated/Reviewed/Updated: Yes Orders Last 24hrs: Active Orders 24 hr Category Date Time Status Patient Status [ADT] Routine ADT 06/10/19 06:30 Active Antiembolic Devices [RC] , Care 06/10/19 08:21 Active Oxygen Therapy [RC] PRN Care 06/10/19 08:20 Active Peripheral IV Care [RC] Care 06/10/19 08:21 Active RT Aerosol Therapy [RC] ASDIRECTED Care 06/10/19 04:48 Active Up With Assistance [RC] ASDIRECTED Care 06/10/19 08:20 Active VTE/DVT Education [RC] , Care 06/10/19 08:20 Active Vital Signs [RC] 00,04,08,12,16,20 Care 06/10/19 08:20 Active Regular Diet [DIET] Diet 06/10/19 Breakfast Active ABG [BLOOD GAS ARTERIAL] [BG] Stat Lab 06/10/19 04:55 Ordered BASIC METABOLIC PANEL,BMP [CHEM] AM Lab 06/11/19 05:11 Ordered CBC WITH AUTO DIFF [HEME] AM Lab 06/11/19 05:11 Ordered CULTURE BLOOD [BC] Stat Lab 06/10/19 04:50 Received Acetaminophen [Tylenol] Med 06/10/19 08:20 Active 650 mg PO Q4H PRN Albuterol/Ipratropium [DuoNeb 3.0-0.5 MG/3 ML] Med 06/10/19 08:15 Active 3 ml NEB Q2H PRN Albuterol/Ipratropium [DuoNeb 3.0-0.5 MG/3 ML] Med 06/10/19 13:00 Active 3 ml NEB Q6HRRT Azithromycin [Zithromax] 500 mg Med 06/10/19 09:00 Active Sodium Chloride 0.9% [Normal Saline] 250 ml IV Q24H Budesonide [Pulmicort] Med 06/10/19 09:00 Active 0.5 mg NEB BIDRT Docusate Sodium [Colace] Med 06/10/19 08:20 Active 100 mg PO BID PRN Ethinyl Estradiol/Drospirenone [Bette 3 mg-0.02 mg Med 06/10/19 11:45 Ordered Tablet] 1 tab PO DAILY Folic Acid Med 06/10/19 11:45 Ordered 1 mg PO DAILY Heparin Sodium Med 06/10/19 14:00 Active 5,000 units SUBCUT Q8HR Levothyroxine Sodium [Synthroid] Med 06/11/19 06:00 Ordered 300 mcg PO ACBREAKFAST Levothyroxine [Synthroid] Med 06/11/19 06:00 Ordered 50 mcg PO ACBREAKFAST Montelukast [Singulair] Med 06/10/19 09:00 Active 10 mg PO DAILY Ondansetron [Zofran ODT] Med 06/10/19 08:20 Active 4 mg PO Q6H PRN Sertraline [Zoloft] Med 06/11/19 09:00 Ordered 100 mg PO DAILY Sodium Chloride 0.9% [Saline Flush] Med 06/10/19 08:20 Active 10 ml FLUSH ASDIRECTED PRN Topiramate [Topamax] Med 06/10/19 11:45 Ordered 50 mg PO DAILY Zolpidem [Ambien] Med 06/10/19 08:20 Active 5 mg PO BEDTIME PRN cefTRIAXone [Rocephin] 1 gm Med 06/10/19 10:00 Active Sodium Chloride 0.9% [Normal Saline] 50 ml IV Q24H methylPREDNISolone Sod Succ [Solu-MEDROL] Med 06/10/19 14:00 Active 40 mg IVPUSH Q8HR Antiembolic Hose [OM.PC] Per Unit Routine Oth 06/10/19 08:20 Ordered Peripheral IV Insertion Adult [OM.PC] Routine Oth 06/10/19 08:20 Ordered Saline Lock Insert [OM.PC] Routine Oth 06/10/19 08:20 Ordered Resuscitation Status Routine Resus Stat 06/10/19 08:20 Ordered Medication Orders Acetaminophen (Tylenol) 650 mg PO Q4H PRN PRN Reason: Pain (Mild 1-3)/fever Albuterol/Ipratropium (Duoneb 3.0-0.5 Mg/3 Ml) 3 ml NEB Q6HRRT [facility] Last Admin: 06/10/19 09:41 Dose: 3 ml Albuterol/Ipratropium (Duoneb 3.0-0.5 Mg/3 Ml) 3 ml NEB Q2H PRN PRN Reason: sob Budesonide (Pulmicort) 0.5 mg NEB BIDRT [facility] Last Admin: 06/10/19 09:40 Dose: 0.5 mg Docusate Sodium (Colace) 100 mg PO BID PRN PRN Reason: Constipation Folic Acid (Folic Acid) 1 mg PO DAILY [facility] Heparin Sodium (Porcine) (Heparin Sodium) 5,000 units SUBCUT Q8HR [facility] Azithromycin 500 mg/ Sodium (Chloride) 250 mls @ 250 mls/hr IV Q24H [facility] Last Infusion: 06/10/19 10:34 Dose: 0 mls/hr Admin: 06/10/19 09:05 Dose: 250 mls/hr Ceftriaxone Sodium 1 gm/ (Sodium Chloride) 50 mls @ 50 mls/hr IV Q24H [facility] Last Admin: 06/10/19 10:40 Dose: 50 mls/hr Levothyroxine Sodium (Synthroid) 50 mcg PO ACBREAKFAST [facility] Methylprednisolone Sodium Succinate (Solu-Medrol) 40 mg IVPUSH Q8HR [facility] Montelukast Sodium (Singulair) 10 mg PO DAILY [facility] Last Admin: 06/10/19 11:00 Dose: 10 mg Non-Formulary Medication (Ethinyl Estradiol/Drospirenone [Bette 3 Mg-0.02 Mg Tablet]) 1 tab PO DAILY [facility] Non-Formulary Medication (Levothyroxine Sodium [Synthroid]) 300 mcg PO ACBREAKFAST [facility] Non-Formulary Medication (Sertraline [Zoloft]) 100 mg PO DAILY [facility] Ondansetron HCl (Zofran Odt) 4 mg PO Q6H PRN PRN Reason: nausea, able to take PO Sodium Chloride (Saline Flush) 10 ml FLUSH ASDIRECTED PRN PRN Reason: Keep Vein Open Topiramate (Topamax) 50 mg PO DAILY JER[facility] Zolpidem Tartrate (Ambien) 5 mg PO BEDTIME PRN PRN Reason: Sleep Assessment/Plan Comment:: 24-year-old with a history of asthma presented with increasing shortness of breath associated with wheezing, hypoxemia Acute asthma exacerbation Will treat with IV Solu-Medrol Give Pulmicort twice a day Give scheduled frequent DuoNeb and when necessary Hold long-acting asthma medications Acute hypoxemic respiratory failure Supplement oxygen as needed Hypothyroidism Treat with Synthroid DVT prophylaxis with subcutaneous heparin
[2019-06-10] MEDS: Levothyroxine 150 MCG Tab PO SCH (12:36)
[2019-06-10] MEDS: Folic Acid 1 MG Tab PO SCH (12:36)
[2019-06-10] MEDS: Topiramate 25 MG Tab PO SCH (12:36)
[2019-06-10] MEDS: Levothyroxine 75 MCG Tab PO SCH (12:37)
[2019-06-10] MEDS: Heparin Sodium 5,000 Units/ML Vial SUBCUT SCH ×2 (15:13→21:17)
[2019-06-10] MEDS: methylPREDNISolone Sodium Succinate 40 MG/1 ML SDV IVPUSH SCH ×2 (15:14→21:18)
[2019-06-10] MEDS: guaiFENesin 100 MG/5 ML Soln 5 ML UD Cup PO PRN ×2 (15:14→21:25)
[2019-06-10] MEDS: Acetaminophen 325 MG Tab PO PRN ×2 (16:59→23:13)
[2019-06-10] MEDS: hydrOXYzine HCl 25 MG Tab PO PRN (21:17)
[2019-06-10] MEDS: Sodium Chloride 0.9% 10 ML Syringe FLUSH PRN (21:25)
[2019-06-11] MEDS: Albuterol/Ipratropium 3.0-0.5 MG/3 ML Neb Soln NEB SCH ×5 (00:57→18:21)
[2019-06-11] MEDS ORDERED: Levothyroxine 50 MCG Tab PO SCH (06:00)
[2019-06-11] MEDS: Heparin Sodium 5,000 Units/ML Vial SUBCUT SCH ×3 (06:04→21:36)
[2019-06-11] MEDS: Levothyroxine 75 MCG Tab PO SCH (06:05)
[2019-06-11] MEDS: Levothyroxine 150 MCG Tab PO SCH (06:05)
[2019-06-11] MEDS: Acetaminophen 325 MG Tab PO PRN ×2 (06:06→19:31)
[2019-06-11] MEDS: methylPREDNISolone Sodium Succinate 40 MG/1 ML SDV IVPUSH SCH ×3 (06:06→21:36)
[2019-06-11] MEDS: Budesonide 0.5 MG/2 ML Neb Susp NEB SCH ×2 (06:06→18:21)
[2019-06-11] MEDS: guaiFENesin 100 MG/5 ML Soln 5 ML UD Cup PO PRN ×3 (06:07→21:36)
[2019-06-11] MEDS: Sodium Chloride 0.9% 10 ML Syringe FLUSH PRN ×2 (06:07→21:37)
[2019-06-11] MEDS: Azithromycin 500 MG in Sodium Chloride 0.9% 250 ML IV SCH (08:39)
[2019-06-11] MEDS: Sertraline 50 MG Tab PO SCH (08:45)
[2019-06-11] MEDS: Topiramate 25 MG Tab PO SCH (08:45)
[2019-06-11] MEDS: Montelukast 10 MG Tab PO SCH (08:46)
[2019-06-11] MEDS: Folic Acid 1 MG Tab PO SCH (08:46)
[2019-06-11 09:19] LABS: ANION GAP 15.9; CHLORIDE,CL 107 mmol/L (101-111); SODIUM,NA 138 mmol/L (135-145)
--- NOTE | 2019-06-11 10:42 | PCM.PN ---
- General Info Date of Service: 06/11/19 Admission Dx/Problem (Free Text): Admission Diagnosis/Problem Admission Diagnosis/Problem Dyspnea or other respiratory complaints Subjective Update: She is feeling better. Breathing is easier. Can take deeper breath. Talking without shortness of breath. No fever, no chest pain. No abdominal pain. Functional Status: Reports: Pain Controlled, Tolerating Diet - Review of Systems General: Denies: Fever Pulmonary: Reports: Shortness of Breath (Improved), Cough. Denies: Sputum Cardiovascular: Denies: Chest Pain, Edema Gastrointestinal: Denies: Abdominal Pain Genitourinary: Denies: Dysuria Neurological: Denies: Confusion - Patient Data Vitals - Most Recent: Last Vital Signs Temp 36.7 C 06/11/19 08:00 Pulse 110 H 06/11/19 08:00 Resp 20 06/11/19 08:00 BP 151/107 H 06/11/19 08:00 Pulse Ox 92 L 06/11/19 08:20 Weight - Most Recent: 156.852 kg I&O - Last 24 Hours: Intake & Output 06/10/19 06/11/19 06/11/19 22:59 06:59 14:59 Intake Total 600 Balance 600 Lab Results Last 24 Hours: Laboratory Results - last 24 hr 06/11/19 06/11/19 Range/Units 08:53 08:53 WBC 26.0 H* (5.0-10.0) 10^3/uL RBC 4.99 (4.2-5.4) 10^6/uL Hgb 10.4 L (12.0-16.0) g/dL Hct 34.8 L (37.0-47.0) % MCV 69.7 L (80-100) fL MCH 20.8 L (27.0-34.0) pg MCHC 29.9 L (33.0-35.0) g/dL Plt Count 440 (150-450) 10^3/uL Neut % (Auto) 92.1 H (42.2-75.2) % Lymph % (Auto) 3.9 L (20.5-50.1) % [place] % (Auto) 3.9 (2-8) % Eos % (Auto) 0.0 L (1.0-3.0) % Baso % (Auto) 0.1 (0.0-1.0) % Add Manual Diff Yes Neutrophils % (Manual) 95 H (42-75) % Band Neutrophils % 1 % Lymphocytes % (Manual) 1 L (20-50) % Monocytes % (Manual) 3 (2-8) % Hypochromasia 2+ moderate Microcytosis 2+ moderate Sodium 138 (135-145) mmol/L Potassium 3.9 (3.6-5.0) mmol/L Chloride 107 (101-111) mmol/L Carbon Dioxide 19.0 L (21.0-31.0) mmol/L Anion Gap 15.9 BUN 14 (7-18) mg/dL Creatinine 0.8 (0.6-1.3) mg/dL Est Cr Clr Drug Dosing 103.26 mL/min Estimated GFR (MDRD) > 60 Glucose 201 H (74-105) mg/dL Calcium 8.7 (8.4-10.2) mg/dl Moisés Results Last 24 Hours: Microbiology 06/10/19 04:50 Aerobic Blood Culture - Preliminary Blood NO GROWTH AFTER 1 DAY Anaerobic Blood Culture - Preliminary NO GROWTH AFTER 1 DAY Med Orders - Current: Current Medications Acetaminophen (Tylenol) 650 mg PO Q4H PRN PRN Reason: Pain (Mild 1-3)/fever Last Admin: 06/11/19 06:06 Dose: 650 mg Albuterol/Ipratropium (Duoneb 3.0-0.5 Mg/3 Ml) 3 ml NEB Q6HRRT [facility] Last Admin: 06/11/19 06:06 Dose: 3 ml Albuterol/Ipratropium (Duoneb 3.0-0.5 Mg/3 Ml) 3 ml NEB Q2H PRN PRN Reason: sob Last Admin: 06/10/19 23:14 Dose: 3 ml Budesonide (Pulmicort) 0.5 mg NEB BIDRT [facility] Last Admin: 06/11/19 06:06 Dose: 0.5 mg Docusate Sodium (Colace) 100 mg PO BID PRN PRN Reason: Constipation Folic Acid (Folic Acid) 1 mg PO DAILY [facility] Last Admin: 06/11/19 08:46 Dose: 1 mg Guaifenesin (Robitussin) 100 mg PO Q6H PRN PRN Reason: Cough Last Admin: 06/11/19 06:07 Dose: 100 mg Heparin Sodium (Porcine) (Heparin Sodium) 5,000 units SUBCUT Q8HR [facility] Last Admin: 06/11/19 06:04 Dose: 5,000 units Hydroxyzine HCl (Atarax) 25 mg PO Q8H PRN PRN Reason: anxiety/sleep Last Admin: 06/10/19 21:17 Dose: 25 mg Azithromycin 500 mg/ Sodium (Chloride) 250 mls @ 250 mls/hr IV Q24H [facility] Last Admin: 06/11/19 08:39 Dose: 125 mls/hr Ceftriaxone Sodium 1 gm/ (Sodium Chloride) 50 mls @ 50 mls/hr IV Q24H [facility] Last Admin: 06/10/19 10:40 Dose: 50 mls/hr Levothyroxine Sodium (Levothyroxine) 300 mcg PO ACBREAKFAST [facility] Last Admin: 06/11/19 06:05 Dose: 300 mcg Levothyroxine Sodium (Levothyroxine) 75 mcg PO ACBREAKFAST [facility] Last Admin: 06/11/19 06:05 Dose: 75 mcg Methylprednisolone Sodium Succinate (Solu-Medrol) 40 mg IVPUSH Q8HR [facility] Last Admin: 06/11/19 06:06 Dose: 40 mg Montelukast Sodium (Singulair) 10 mg PO DAILY [facility] Last Admin: 06/11/19 08:46 Dose: 10 mg Ondansetron HCl (Zofran Odt) 4 mg PO Q6H PRN PRN Reason: nausea, able to take PO Sertraline HCl (Zoloft) 100 mg PO DAILY [facility] Last Admin: 06/11/19 08:45 Dose: 100 mg Sodium Chloride (Saline Flush) 10 ml FLUSH ASDIRECTED PRN PRN Reason: Keep Vein Open Last Admin: 06/11/19 06:07 Dose: 10 ml Topiramate (Topamax) 50 mg PO DAILY [facility] Last Admin: 06/11/19 08:45 Dose: 50 mg Zolpidem Tartrate (Ambien) 5 mg PO BEDTIME PRN PRN Reason: Sleep Discontinued Medications Albuterol (Proventil Neb Soln) 2.5 mg NEB ONETIME ONE Stop: 06/10/19 05:48 Last Admin: 06/10/19 06:22 Dose: Not Given Albuterol/Ipratropium (Duoneb 3.0-0.5 Mg/3 Ml) 3 ml NEB ONETIME ONE Stop: 06/10/19 04:49 Last Admin: 06/10/19 04:59 Dose: 3 ml Sodium Chloride (Normal Saline) 1,000 mls @ 250 mls/hr IV .BOLUS ONE Stop: 06/10/19 08:47 Last Admin: 06/10/19 04:59 Dose: 250 mls/hr Levothyroxine Sodium (Synthroid) 50 mcg PO ACBREAKFAST JERILYN Methylprednisolone Sodium Succinate (Solu-Medrol) 125 mg IVPUSH ONETIME ONE Stop: 06/10/19 04:49 Last Admin: 06/10/19 04:59 Dose: 125 mg Potassium Chloride (Klor-Con 10) 20 meq PO ONETIME ONE Stop: 06/10/19 05:48 Last Admin: 06/10/19 06:03 Dose: 20 meq Racepinephrine (S-2 2.25%) 0.5 ml NEB ONETIME ONE Stop: 06/10/19 06:20 Last Admin: 06/10/19 06:25 Dose: 0.5 ml - Exam General: Alert, Oriented Lungs: Normal Respiratory Effort, Wheezing Cardiovascular: Regular Rate, Regular Rhythm GI/Abdominal Exam: Normal Bowel Sounds, Soft, Non-Tender Extremities: No Pedal Edema - Problem List & Annotations (1) Acute asthma SNOMED Code(s): 057667288 Code(s): J45.909 - UNSPECIFIED ASTHMA, UNCOMPLICATED Status: Acute Current Visit: No (2) Hypoxemia SNOMED Code(s): 172830377 Code(s): R09.02 - HYPOXEMIA Status: Acute Current Visit: No - Problem List Review Problem List Initiated/Reviewed/Updated: Yes - My Orders Last 24 Hours: My Active Orders 06/10/19 10:00 cefTRIAXone [Rocephin] 1 gm Sodium Chloride 0.9% [Normal Saline] 50 ml IV Q24H 06/10/19 12:00 Folic Acid 1 mg PO DAILY Levothyroxine 300 mcg PO ACBREAKFAST Levothyroxine 75 mcg PO ACBREAKFAST Topiramate [Topamax] 50 mg PO DAILY 06/10/19 13:00 Albuterol/Ipratropium [DuoNeb 3.0-0.5 MG/3 ML] 3 ml NEB Q6HRRT 06/10/19 14:00 Heparin Sodium 5,000 units SUBCUT Q8HR methylPREDNISolone Sod Succ [Solu-MEDROL] 40 mg IVPUSH Q8HR 06/10/19 14:46 guaiFENesin [Robitussin] 100 mg PO Q6H PRN 06/10/19 20:03 hydrOXYzine HCl [Atarax] 25 mg PO Q8H PRN 06/11/19 09:00 Sertraline [Zoloft] 100 mg PO DAILY 06/12/19 05:15 BASIC METABOLIC PANEL,BMP [CHEM] AM CBC WITH AUTO DIFF [HEME] AM - Plan Plan:: 24-year-old with a history of asthma presented with increasing shortness of breath associated with wheezing, hypoxemia Acute asthma exacerbation Will treat with IV Solu-Medrol Give Pulmicort twice a day Give scheduled frequent DuoNeb and when necessary Hold long-acting asthma medications Acute hypoxemic respiratory failure Supplement oxygen as needed Hypothyroidism Treat with Synthroid DVT prophylaxis with subcutaneous heparin
[2019-06-11] MEDS: cefTRIAXone 1 GM in Sodium Chloride 0.9% 50 ML IV SCH (11:15)
[2019-06-11] MEDS: hydrOXYzine HCl 25 MG Tab PO PRN (21:36)
[2019-06-12] MEDS: Albuterol/Ipratropium 3.0-0.5 MG/3 ML Neb Soln NEB SCH ×2 (01:12→07:20)
[2019-06-12] MEDS: Levothyroxine 150 MCG Tab PO SCH (06:13)
[2019-06-12] MEDS: methylPREDNISolone Sodium Succinate 40 MG/1 ML SDV IVPUSH SCH (06:13)
[2019-06-12] MEDS: Sodium Chloride 0.9% 10 ML Syringe FLUSH PRN ×2 (06:13→08:51)
[2019-06-12] MEDS: Heparin Sodium 5,000 Units/ML Vial SUBCUT SCH (06:14)
[2019-06-12] MEDS: Levothyroxine 75 MCG Tab PO SCH (06:14)
[2019-06-12 07:03] LABS: ANION GAP 13.4; CHLORIDE,CL 108 mmol/L (101-111); SODIUM,NA 138 mmol/L (135-145)
[2019-06-12] MEDS: Budesonide 0.5 MG/2 ML Neb Susp NEB SCH (07:20)
[2019-06-12] MEDS: Azithromycin 500 MG in Sodium Chloride 0.9% 250 ML IV SCH (08:49)
[2019-06-12] MEDS: Sertraline 50 MG Tab PO SCH (08:54)
[2019-06-12] MEDS: Folic Acid 1 MG Tab PO SCH (08:59)
[2019-06-12] MEDS: Topiramate 25 MG Tab PO SCH (08:59)
[2019-06-12] MEDS: Montelukast 10 MG Tab PO SCH (08:59)
[2019-06-12] MEDS: guaiFENesin 100 MG/5 ML Soln 5 ML UD Cup PO PRN (09:01)
[2019-06-12] MEDS: cefTRIAXone 1 GM in Sodium Chloride 0.9% 50 ML IV SCH (11:01)
--- NOTE | 2019-06-12 11:09 | PCM.DCSUM1 ---
Discharge Summary - Hospital Course Free Text/Narrative:: 24-year-old with a history of asthma presented with increasing shortness of breath associated with wheezing, hypoxemia Acute asthma exacerbation with acute hypoxemic respiratory failure treated with IV Solu-Medrol, Pulmicort, duoneb improved has been off oxygen will transition to advair, spiriva discharge with prednisone and levofloxacin Hypothyroidism Treat with Synthroid Diagnosis: Stroke: No - Discharge Data Discharge Date: 06/12/19 Discharge Disposition: Home, Self-Care 01 Condition: Stable - Discharge Diagnosis/Problem(s) (1) Acute asthma SNOMED Code(s): 570992774 ICD Code: J45.909 - UNSPECIFIED ASTHMA, UNCOMPLICATED Status: Acute Current Visit: No (2) Hypoxemia SNOMED Code(s): 778898966 ICD Code: R09.02 - HYPOXEMIA Status: Acute Current Visit: No - Discharge Plan *PRESCRIPTION DRUG MONITORING PROGRAM REVIEWED*: No *COPY OF PRESCRIPTION DRUG MONITORING REPORT IN PATIENT NATASHA: No Prescriptions/Med Rec: Fluticasone/Salmeterol [Advair 500-50] 1 puff INH BID #1 diskus levoFLOXacin [Levaquin] 500 mg PO DAILY #5 tab predniSONE [Deltasone] 20 mg PO DAILY #5 tablet Tiotropium [Spiriva HandiHaler] 18 mcg INH DAILY #1 cap Home Medications: Home Meds Levocetirizine Dihydrochloride 5 mg PO BEDTIME 07/10/18 [History] Montelukast [Singulair] 10 mg PO DAILY 07/10/18 [History] Topiramate 50 mg PO DAILY 07/10/18 [History] Folic Acid 1 mg PO DAILY 09/21/18 [History] Albuterol Sulfate [Proair Hfa] 2 inh PO Q4H PRN 06/10/19 [History] Ergocalciferol (Vitamin D2) [Vitamin D2] 50,000 unit PO .WEEKLY 06/10/19 [ History] Levothyroxine Sodium [Synthroid] 75 mcg PO DAILY 06/10/19 [History] Levothyroxine Sodium [Synthroid] 300 mcg PO ACBREAKFAST 06/10/19 [History] Sertraline [Zoloft] 100 mg PO DAILY 06/10/19 [History] hydrOXYzine HCl [Hydroxyzine HCl] 25 mg PO Q8H PRN 06/10/19 [History] Fluticasone/Salmeterol [Advair 500-50] 1 puff INH BID #1 diskus 06/12/19 [Rx] Tiotropium [Spiriva HandiHaler] 18 mcg INH DAILY #1 cap 06/12/19 [Rx] levoFLOXacin [Levaquin] 500 mg PO DAILY #5 tab 06/12/19 [Rx] predniSONE [Deltasone] 20 mg PO DAILY #5 tablet 06/12/19 [Rx] Oxygen Therapy Mode: Room Air Forms: ED Department Discharge Referrals: PCP,None [Primary Care Provider] - (dr. Dasilva or dr Hunter in 3-4 days) - Discharge Summary/Plan Comment DC Time >30 min.: No - General Info Date of Service: 06/12/19 Subjective Update: She is feeling much better. Breathing is easier. she is walking, No fever, no chest pain. No abdominal pain. - Patient Data Vitals - Most Recent: Last Vital Signs Temp 36.6 C 06/12/19 08:23 Pulse 64 06/12/19 08:23 Resp 20 06/12/19 08:23 BP 118/63 06/12/19 08:23 Pulse Ox 96 06/12/19 10:00 Weight - Most Recent: 156.852 kg I&O - Last 24 hours: Intake & Output 06/11/19 06/12/19 06/12/19 22:59 06:59 14:59 Intake Total 360 600 Balance 360 600 Lab Results - Last 24 hrs: Laboratory Results - last 24 hr 06/12/19 06/12/19 Range/Units 06:30 06:30 WBC 23.8 H (5.0-10.0) 10^3/uL RBC 5.06 (4.2-5.4) 10^6/uL Hgb 10.5 L (12.0-16.0) g/dL Hct 35.1 L (37.0-47.0) % MCV 69.4 L (80-100) fL MCH 20.8 L (27.0-34.0) pg MCHC 29.9 L (33.0-35.0) g/dL Plt Count 483 H (150-450) 10^3/uL Neut % (Auto) 87.5 H (42.2-75.2) % Lymph % (Auto) 8.2 L (20.5-50.1) % [place] % (Auto) 4.2 (2-8) % Eos % (Auto) 0.0 L (1.0-3.0) % Baso % (Auto) 0.1 (0.0-1.0) % Add Manual Diff Yes Neutrophils % (Manual) 89 H (42-75) % Lymphocytes % (Manual) 10 L (20-50) % Monocytes % (Manual) 1 L (2-8) % Platelet Estimate Increased Microcytosis 2+ moderate Elliptocytes 1+ slight Sodium 138 (135-145) mmol/L Potassium 4.4 (3.6-5.0) mmol/L Chloride 108 (101-111) mmol/L Carbon Dioxide 21.0 (21.0-31.0) mmol/L Anion Gap 13.4 BUN 16 (7-18) mg/dL Creatinine 0.7 (0.6-1.3) mg/dL Est Cr Clr Drug Dosing 118.01 mL/min Estimated GFR (MDRD) > 60 Glucose 115 H (74-105) mg/dL Calcium 8.6 (8.4-10.2) mg/dl MARTINA Results - Last 24 hrs: Microbiology 06/10/19 04:50 Aerobic Blood Culture - Preliminary Blood NO GROWTH AFTER 2 DAYS Anaerobic Blood Culture - Preliminary NO GROWTH AFTER 2 DAYS Med Orders - Current: Current Medications Acetaminophen (Tylenol) 650 mg PO Q4H PRN PRN Reason: Pain (Mild 1-3)/fever Last Admin: 06/11/19 19:31 Dose: 650 mg Albuterol/Ipratropium (Duoneb 3.0-0.5 Mg/3 Ml) 3 ml NEB Q6HRRT [facility] Last Admin: 06/12/19 07:20 Dose: 3 ml Albuterol/Ipratropium (Duoneb 3.0-0.5 Mg/3 Ml) 3 ml NEB Q2H PRN PRN Reason: sob Last Admin: 06/10/19 23:14 Dose: 3 ml Budesonide (Pulmicort) 0.5 mg NEB BIDRT [facility] Last Admin: 06/12/19 07:20 Dose: 0.5 mg Docusate Sodium (Colace) 100 mg PO BID PRN PRN Reason: Constipation Folic Acid (Folic Acid) 1 mg PO DAILY [facility] Last Admin: 06/12/19 08:59 Dose: 1 mg Guaifenesin (Robitussin) 100 mg PO Q6H PRN PRN Reason: Cough Last Admin: 06/12/19 09:01 Dose: 100 mg Heparin Sodium (Porcine) (Heparin Sodium) 5,000 units SUBCUT Q8HR [facility] Last Admin: 06/12/19 06:14 Dose: Not Given Hydroxyzine HCl (Atarax) 25 mg PO Q8H PRN PRN Reason: anxiety/sleep Last Admin: 06/11/19 21:36 Dose: 25 mg Azithromycin 500 mg/ Sodium (Chloride) 250 mls @ 250 mls/hr IV Q24H [facility] Last Admin: 06/12/19 08:49 Dose: 125 mls/hr Ceftriaxone Sodium 1 gm/ (Sodium Chloride) 50 mls @ 50 mls/hr IV Q24H [facility] Last Admin: 06/12/19 11:01 Dose: 50 mls/hr Levothyroxine Sodium (Levothyroxine) 300 mcg PO ACBREAKFAST [facility] Last Admin: 06/12/19 06:13 Dose: 300 mcg Levothyroxine Sodium (Levothyroxine) 75 mcg PO ACBREAKFAST [facility] Last Admin: 06/12/19 06:14 Dose: 75 mcg Methylprednisolone Sodium Succinate (Solu-Medrol) 40 mg IVPUSH Q8HR [facility] Last Admin: 06/12/19 06:13 Dose: 40 mg Montelukast Sodium (Singulair) 10 mg PO DAILY [facility] Last Admin: 06/12/19 08:59 Dose: 10 mg Ondansetron HCl (Zofran Odt) 4 mg PO Q6H PRN PRN Reason: nausea, able to take PO Sertraline HCl (Zoloft) 100 mg PO DAILY [facility] Last Admin: 06/12/19 08:54 Dose: 100 mg Sodium Chloride (Saline Flush) 10 ml FLUSH ASDIRECTED PRN PRN Reason: Keep Vein Open Last Admin: 06/12/19 08:51 Dose: 10 ml Topiramate (Topamax) 50 mg PO DAILY [facility] Last Admin: 06/12/19 08:59 Dose: 50 mg Zolpidem Tartrate (Ambien) 5 mg PO BEDTIME PRN PRN Reason: Sleep Discontinued Medications Albuterol (Proventil Neb Soln) 2.5 mg NEB ONETIME ONE Stop: 06/10/19 05:48 Last Admin: 06/10/19 06:22 Dose: Not Given Albuterol/Ipratropium (Duoneb 3.0-0.5 Mg/3 Ml) 3 ml NEB ONETIME ONE Stop: 06/10/19 04:49 Last Admin: 06/10/19 04:59 Dose: 3 ml Sodium Chloride (Normal Saline) 1,000 mls @ 250 mls/hr IV .BOLUS ONE Stop: 06/10/19 08:47 Last Admin: 06/10/19 04:59 Dose: 250 mls/hr Levothyroxine Sodium (Synthroid) 50 mcg PO ACBREAKFAST JERILYN Methylprednisolone Sodium Succinate (Solu-Medrol) 125 mg IVPUSH ONETIME ONE Stop: 06/10/19 04:49 Last Admin: 06/10/19 04:59 Dose: 125 mg Potassium Chloride (Klor-Con 10) 20 meq PO ONETIME ONE Stop: 06/10/19 05:48 Last Admin: 06/10/19 06:03 Dose: 20 meq Racepinephrine (S-2 2.25%) 0.5 ml NEB ONETIME ONE Stop: 06/10/19 06:20 Last Admin: 06/10/19 06:25 Dose: 0.5 ml - Exam Quality Assessment: Denies: Supplemental Oxygen General: Reports: Alert, Oriented Neck: Reports: Supple Lungs: Reports: Normal Respiratory Effort. Denies: Wheezing Cardiovascular: Reports: Regular Rate, Regular Rhythm GI/Abdominal Exam: Normal Bowel Sounds, Soft, Non-Tender Extremities: No Pedal Edema
[2019-06-12 13:26] VITALS: BP 126/73; PULSE 88
== END 2019-06-12 12:00 | disposition home or self-care (01) | DRG 189 ==
LOC: DL.ED 04:37 → DL.MS 06:30
PROVIDERS: ADMIT Internal Medicine; ATTEND Internal Medicine
DX: J96.01 Acute respiratory failure with hypoxia (principal); J45.41 Moderate persistent asthma with (acute) exacerbation; R09.02 Hypoxemia; H54.7 Unspecified visual loss; E03.9 Hypothyroidism, unspecified; E66.9 Obesity, unspecified; G47.30 Sleep apnea, unspecified; K21.9 Gastro-esophageal reflux disease without esophagitis; F41.9 Anxiety disorder, unspecified; F32.9 Major depressive disorder, single episode, unspecified; D64.9 Anemia, unspecified; Z68.30 Body mass index [BMI] 30.0-30.9, adult; G43.909 Migraine, unspecified, not intractable, without status migrainosus; Z79.890 Hormone replacement therapy; Z79.51 Long term (current) use of inhaled steroids; Z91.048 Other nonmedicinal substance allergy status; Z79.52 Long term (current) use of systemic steroids; Z68.43 Body mass index [BMI] 50.0-59.9, adult; Z79.899 Other long term (current) drug therapy; Z88.5 Allergy status to narcotic agent; Z91.040 Latex allergy status; Z88.8 Allergy status to other drugs, medicaments and biological substances; Z91.09 Other allergy status, other than to drugs and biological substances; Z87.01 Personal history of pneumonia (recurrent)
CPT/HCPCS: 36415; 71045; 80053; 83605; 83735; 85025; 87040; 96365; 96366; 96375; 99284; A9270; J2930; J7030; 80048; 94640; J0456; J0696; J1644; J2920; J7050; J7613-GY; J7620-GY

== ENCOUNTER 2019-08-15 18:00 | Emergency (ER) | payer MEDICAID ==
--- NOTE | 2019-08-15 19:16 | EDM.PDOC ---
ED HPI GENERAL MEDICAL PROBLEM - General Chief Complaint: Abdominal Pain Stated Complaint: L UPPER ABDOMINAL PAIN Time Seen by Provider: 08/15/19 18:58 Source of Information: Reports: Patient History Limitations: Reports: No Limitations - History of Present Illness INITIAL COMMENTS - FREE TEXT/NARRATIVE: This 24 yo female patient reports to the ED with left upper quadrant pain and nausea that started this morning. The patient reports she currently feels "fine ", but has increased pain when she moves. The patient reports she has been having loose stools, but this has been normal for her since she had her gallbladder removed. Onset: Today Onset Date: 08/15/19 Onset Time: 08:00 Duration: Constant Location: Reports: Abdomen (LUQ) Quality: Reports: Ache Severity: Moderate Improves with: Reports: None Worsens with: Reports: Movement Context: Reports: Other Associated Symptoms: Reports: Nausea/Vomiting Left Upper Abdomen Pain Score (Numeric/FACES): 3 - Related Data Allergies Allergy/AdvReac Type Severity Reaction Status Date / Time hydrocodone Allergy Hives Verified 08/15/19 18:28 latex Allergy Hives Verified 08/15/19 18:28 soap Allergy Rash Verified 08/15/19 18:28 harvest molds Allergy Cannot Uncoded 08/15/19 18:28 Remember lactose intolerant Allergy Nausea Uncoded 08/15/19 18:28 seasonal Allergy Difficulty Uncoded 08/15/19 18:28 Breathing Home Meds: Home Meds Levocetirizine Dihydrochloride 5 mg PO BEDTIME 07/10/18 [History] Montelukast [Singulair] 10 mg PO DAILY 07/10/18 [History] Topiramate 50 mg PO DAILY 07/10/18 [History] Folic Acid 1 mg PO DAILY 09/21/18 [History] Albuterol Sulfate [Proair Hfa] 2 inh PO Q4H PRN 06/10/19 [History] Ergocalciferol (Vitamin D2) [Vitamin D2] 50,000 unit PO .WEEKLY 06/10/19 [ History] Levothyroxine Sodium [Synthroid] 75 mcg PO DAILY 06/10/19 [History] Levothyroxine Sodium [Synthroid] 300 mcg PO ACBREAKFAST 06/10/19 [History] hydrOXYzine HCl [Hydroxyzine HCl] 25 mg PO Q8H PRN 06/10/19 [History] Fluticasone/Salmeterol [Advair 500-50] 1 puff INH BID #1 diskus 06/12/19 [Rx] Tiotropium [Spiriva HandiHaler] 18 mcg INH DAILY #1 cap 06/12/19 [Rx] buPROPion HCl [Bupropion Xl] 150 mg PO DAILY 08/15/19 [History] Past Medical History - Past Health History Medical/Surgical History: Denies Medical/Surgical History HEENT History: Reports: Impaired Vision Other HEENT History: wears glasses Cardiovascular History: Reports: None Respiratory History: Reports: Asthma, Bronchitis, Recurrent, Pneumonia, Recurrent, Sleep Apnea Gastrointestinal History: Reports: Cholelithiasis, GERD Genitourinary History: Reports: None RESIDENT CARE SPEC History: Reports: Spontaneous Other RESIDENT CARE SPEC History: times 3 Musculoskeletal History: Reports: None Neurological History: Reports: Migraines Psychiatric History: Reports: Anxiety, Depression, Learning Disability, PTSD Endocrine/Metabolic History: Reports: Hypothyroidism, Obesity/BMI 30+ Hematologic History: Reports: Anemia Immunologic History: Reports: None Oncologic (Cancer) History: Reports: None Dermatologic History: Reports: None, Eczema - Infectious Disease History Infectious Disease History: Reports: Chicken Pox - Past Surgical History Head Surgeries/Procedures: Reports: None HEENT Surgical History: Reports: Oral Surgery GI Surgical History: Reports: Cholecystectomy Female Surgical History: Reports: None Social & Family History - Family History Family Medical History: Noncontributory - Tobacco Use Smoking Status *Q: Current Every Day Smoker Years of Tobacco use: 1 Packs/Tins Daily: 0.5 Second Hand Smoke Exposure: No - Caffeine Use Caffeine Use: Reports: Coffee, Energy Drinks, Soda Other Caffeine Use: states takes one pop daily for migraines - Recreational Drug Use Recreational Drug Type: Reports: Marijuana/Hashish Other Recreational Drug Type: smoked last night - Living Situation & Occupation Living situation: Reports: with Family ED ROS GENERAL - Review of Systems Review Of Systems: ROS reveals no pertinent complaints other than HPI. ED EXAM, GI/ABD - Physical Exam Exam: See Below Exam Limited By: No Limitations General Appearance: Alert, WD/WN, Mild Distress, Obese Eyes: Bilateral: Normal Appearance, EOMI Ears: Normal External Exam, Normal Canal, Hearing Grossly Normal, Normal TMs Nose: Normal Inspection, Normal Mucosa, No Blood Throat/Mouth: Normal Inspection, Normal Lips, Normal Teeth, Normal Gums, Normal Oropharynx, Normal Voice, No Airway Compromise Head: Atraumatic, Normocephalic Neck: Normal Inspection, Supple, Non-Tender, Full Range of Motion Respiratory/Chest: No Respiratory Distress, Lungs Clear, Normal Breath Sounds, No Accessory Muscle Use, Chest Non-Tender Cardiovascular: Normal Peripheral Pulses, Regular Rate, Rhythm, No Edema, No Gallop, No JVD, No Murmur, No Rub GI/Abdominal Exam: Normal Bowel Sounds, No Organomegaly, No Distention, No Abnormal Bruit, No Mass, Pelvis Stable, Tender (LUQ), Other (Morbid obesity) (Female) Exam: Deferred Rectal (Female) Exam: Deferred Back Exam: Normal Inspection, Full Range of Motion, NT Extremities: Normal Inspection, Normal Range of Motion, Non-Tender, Normal Capillary Refill, No Pedal Edema Neurological: Alert, Oriented, CN II-XII Intact, Normal Cognition, Normal Gait, Normal Reflexes, No Motor/Sensory Deficits Psychiatric: Normal Affect, Normal Mood Skin Exam: Warm, Dry, Intact, Normal Color, No Rash Lymphatic: No Adenopathy Course - Vital Signs Last Recorded V/S: Last Vital Signs Temp 36.3 C 08/15/19 21:34 Pulse 90 08/15/19 21:34 Resp 18 08/15/19 21:34 BP 103/61 08/15/19 21:34 Pulse Ox 99 08/15/19 21:34 - Orders/Labs/Meds Labs: Laboratory Tests 08/15/19 08/15/19 08/15/19 Range/Units 19:19 19:19 19:19 WBC 9.5 (5.0-10.0) 10^3/uL RBC 5.15 (4.2-5.4) 10^6/uL Hgb 10.8 L (12.0-16.0) g/dL Hct 35.3 L (37.0-47.0) % MCV 68.5 L (80-100) fL MCH 21.0 L (27.0-34.0) pg MCHC 30.6 L (33.0-35.0) g/dL Plt Count 392 D (150-450) 10^3/uL Neut % (Auto) 64.5 (42.2-75.2) % Lymph % (Auto) 21.9 (20.5-50.1) % Hunt % (Auto) 7.2 (2-8) % Eos % (Auto) 5.8 H (1.0-3.0) % Baso % (Auto) 0.6 (0.0-1.0) % Sodium 138 (135-145) mmol/L Potassium 3.7 (3.6-5.0) mmol/L Chloride 109 (101-111) mmol/L Carbon Dioxide 21.0 (21.0-31.0) mmol/L Anion Gap 11.7 BUN 14 (7-18) mg/dL Creatinine 0.8 (0.6-1.3) mg/dL Est Cr Clr Drug Dosing 103.26 mL/min Estimated GFR (MDRD) > 60 BUN/Creatinine Ratio 17.50 Glucose 95 (74-105) mg/dL Calcium 8.7 (8.4-10.2) mg/dl Total Bilirubin 0.4 (0.2-1.0) mg/dL AST 19 (10-42) IU/L ALT 21 (10-60) IU/L Alkaline Phosphatase 77 (42-121) IU/L Total Protein 7.3 (6.7-8.2) g/dl Albumin 3.6 (3.2-5.5) g/dl Globulin 3.7 Albumin/Globulin Ratio 0.97 Amylase 61 (28-100) U/L Lipase 31 (22-51) U/L Urine Color (YELLOW) Urine Appearance (CLEAR) Urine pH (5.0-9.0) Ur Specific [place] (1.005-1.030) Urine Protein (NEGATIVE) Urine Glucose (UA) (NEGATIVE) Urine Ketones (NEGATIVE) Urine Occult Blood (NEGATIVE) Urine Nitrite (NEGATIVE) Urine Bilirubin (NEGATIVE) Urine Urobilinogen (0.2-1.0) mg/dL Ur Leukocyte Esterase (NEGATIVE) Urine HCG, Qual 08/15/19 08/15/19 Range/Units 20:03 20:03 WBC (5.0-10.0) 10^3/uL RBC (4.2-5.4) 10^6/uL Hgb (12.0-16.0) g/dL Hct (37.0-47.0) % MCV (80-100) fL MCH (27.0-34.0) pg MCHC (33.0-35.0) g/dL Plt Count (150-450) 10^3/uL Neut % (Auto) (42.2-75.2) % Lymph % (Auto) (20.5-50.1) % Hunt % (Auto) (2-8) % Eos % (Auto) (1.0-3.0) % Baso % (Auto) (0.0-1.0) % Sodium (135-145) mmol/L Potassium (3.6-5.0) mmol/L Chloride (101-111) mmol/L Carbon Dioxide (21.0-31.0) mmol/L Anion Gap BUN (7-18) mg/dL Creatinine (0.6-1.3) mg/dL Est Cr Clr Drug Dosing mL/min Estimated GFR (MDRD) BUN/Creatinine Ratio Glucose (74-105) mg/dL Calcium (8.4-10.2) mg/dl Total Bilirubin (0.2-1.0) mg/dL AST (10-42) IU/L ALT (10-60) IU/L Alkaline Phosphatase (42-121) IU/L Total Protein (6.7-8.2) g/dl Albumin (3.2-5.5) g/dl Globulin Albumin/Globulin Ratio Amylase (28-100) U/L Lipase (22-51) U/L Urine Color Yellow (YELLOW) Urine Appearance Slightly cloudy (CLEAR) Urine pH 6.5 (5.0-9.0) Ur Specific [place] 1.020 (1.005-1.030) Urine Protein Negative (NEGATIVE) Urine Glucose (UA) Negative (NEGATIVE) Urine Ketones Negative (NEGATIVE) Urine Occult Blood Negative (NEGATIVE) Urine Nitrite Negative (NEGATIVE) Urine Bilirubin Negative (NEGATIVE) Urine Urobilinogen 0.2 (0.2-1.0) mg/dL Ur Leukocyte Esterase Negative (NEGATIVE) Urine HCG, Qual Negative Meds: Medications Discontinued Medications Generic Name Dose Route Start Last Admin Trade Name Freq PRN Reason Stop Dose Admin Sodium Chloride 1,000 mls @ 999 mls/hr 08/15/19 20:18 08/15/19 20:41 Normal Saline IV 08/15/19 21:18 999 mls/hr .BOLUS ONE Administration Iopamidol 150 ml 08/15/19 20:15 08/15/19 20:46 Isovue-300 (61%) IVPUSH 08/15/19 20:16 125 ml ONETIME ONE Administration Ketorolac Tromethamine 30 mg 08/15/19 20:18 08/15/19 20:41 Toradol IVPUSH 08/15/19 20:19 30 mg ONETIME ONE Administration - Re-Assessments/Exams Free Text/Narrative Re-Assessment/Exam: 08/15/19 21:45 The patient was advised of the CT results and advised that our facility would not be able to do a CT scan if she gained any additional weight to to the limitations of our scanner. Departure - Departure Time of Disposition: 21:42 Disposition: Home, Self-Care 01 Condition: Fair Clinical Impression: Gastroenteritis Abdominal pain Qualifiers: Abdominal location: right upper quadrant Qualified Code(s): R10.11 - Right upper quadrant pain - Discharge Information *PRESCRIPTION DRUG MONITORING PROGRAM REVIEWED*: Not Applicable *COPY OF PRESCRIPTION DRUG MONITORING REPORT IN PATIENT NATASHA: Not Applicable Instructions: Viral Gastroenteritis, Adult, [id number], Abdominal Pain, Adult , [id number] Forms: ED Department Discharge Care Plan Goals: The patient was advised of the examination, lab and CT results during the visit. The patient was given IV fluids and IV Toradol for temporary symptom relief. The patient was encouraged to stick to a BRAT diet (Bananas, Rice, Applesauce and [place]). The patient may take Tylenol or ibuprofen for temporary symptom relief. If the patient has any additional symptoms or concerns, the patient should either return to the emergency department or visit her primary care facility.
[2019-08-15 19:46] LABS: ANION GAP 11.7; CHLORIDE,CL 109 mmol/L (101-111); SODIUM,NA 138 mmol/L (135-145)
[2019-08-15] MEDS: Sodium Chloride 0.9% 1,000 ML IV ONE (20:41)
[2019-08-15] MEDS: Ketorolac 30 MG/ML SDV IVPUSH ONE (20:41)
[2019-08-15] MEDS: Iopamidol 612 MG/ML 100 ML Bottle IVPUSH ONE (20:46)
[2019-08-15 21:35] VITALS: BP 103/61; PULSE 90
== END 2019-08-15 21:52 | disposition home or self-care (01) ==
LOC: DL.ED 18:00
DX: K52.9 Noninfective gastroenteritis and colitis, unspecified (principal); J45.909 Unspecified asthma, uncomplicated; E03.9 Hypothyroidism, unspecified; G43.909 Migraine, unspecified, not intractable, without status migrainosus; F41.9 Anxiety disorder, unspecified; F32.9 Major depressive disorder, single episode, unspecified; F17.210 Nicotine dependence, cigarettes, uncomplicated; E66.9 Obesity, unspecified; Z68.44 Body mass index [BMI] 60.0-69.9, adult; Z91.040 Latex allergy status; Z91.011 Allergy to milk products; Z88.5 Allergy status to narcotic agent; Z91.048 Other nonmedicinal substance allergy status; Z91.09 Other allergy status, other than to drugs and biological substances; Z79.890 Hormone replacement therapy; Z79.51 Long term (current) use of inhaled steroids; Z79.899 Other long term (current) drug therapy
CPT/HCPCS: 36415; 74177; 80053; 81003; 81025; 82150; 83690; 85025; 96374; 99284; J1885; J7030; Q9967

== ENCOUNTER 2020-11-21 21:11 | Emergency (ER) | payer MEDICAID, OTHER, SELFPAY ==
[2020-11-21 21:38] VITALS: BP 133/116; PULSE 110
[2020-11-21 22:28] LABS: ANION GAP 17.9 mEq/L (7-13); CHLORIDE,CL 100 mmol/L (98-107); SODIUM,NA 138 mmol/L (136-145)
--- NOTE | 2020-11-21 23:21 | EDM.PDOC ---
ED HPI GENERAL MEDICAL PROBLEM - General Chief Complaint: Neurological Problem Stated Complaint: POSSIBLE STROKE, LEFT SIDE Time Seen by Provider: 11/21/20 21:35 Source of Information: Reports: Patient History Limitations: Reports: No Limitations - History of Present Illness INITIAL COMMENTS - FREE TEXT/NARRATIVE: tingling both cheeks more on right, both hands, started around 830. while playing video games. No weakness. Not noted speech difficulty, worried since hit in head with dog bone last night. No loss of consciousness. - Related Data Allergies Allergy/AdvReac Type Severity Reaction Status Date / Time hydrocodone Allergy Hives Verified 11/21/20 21:38 latex Allergy Hives Verified 11/21/20 21:38 soap Allergy Rash Verified 11/21/20 21:38 harvest molds Allergy Cannot Uncoded 11/21/20 21:38 Remember lactose intolerant Allergy Nausea Uncoded 11/21/20 21:38 seasonal Allergy Difficulty Uncoded 11/21/20 21:38 Breathing Home Meds: Home Meds Levocetirizine Dihydrochloride 5 mg PO BEDTIME 07/10/18 [History] Montelukast [Singulair] 10 mg PO DAILY 07/10/18 [History] Topiramate 50 mg PO DAILY 07/10/18 [History] Folic Acid 1 mg PO DAILY 09/21/18 [History] Albuterol Sulfate [Proair Hfa] 2 inh PO Q4H PRN 06/10/19 [History] Ergocalciferol (Vitamin D2) [Vitamin D2] 50,000 unit PO .WEEKLY 06/10/19 [History] Levothyroxine Sodium [Synthroid] 75 mcg PO DAILY 06/10/19 [History] Levothyroxine Sodium [Synthroid] 300 mcg PO ACBREAKFAST 06/10/19 [History] hydrOXYzine HCL [Hydroxyzine HCl] 25 mg PO Q8H PRN 06/10/19 [History] Fluticasone/Salmeterol [Advair 500-50] 1 puff INH BID #1 diskus 06/12/19 [Rx] Tiotropium [Spiriva HandiHaler] 18 mcg INH DAILY #1 cap 06/12/19 [Rx] buPROPion HCL [Bupropion Xl] 150 mg PO DAILY 08/15/19 [History] Past Medical History - Past Health History Medical/Surgical History: Denies Medical/Surgical History HEENT History: Reports: Impaired Vision Other HEENT History: wears glasses Cardiovascular History: Reports: None Respiratory History: Reports: Asthma, Bronchitis, Recurrent, Pneumonia, Recurrent, Sleep Apnea Gastrointestinal History: Reports: Cholelithiasis, GERD Genitourinary History: Reports: None HOUSE WRECKER History: Reports: Spontaneous Other HOUSE WRECKER History: times 3 Musculoskeletal History: Reports: None Neurological History: Reports: Migraines Psychiatric History: Reports: Anxiety, Depression, Learning Disability, PTSD Endocrine/Metabolic History: Reports: Hypothyroidism, Obesity/BMI 30+ Hematologic History: Reports: Anemia Immunologic History: Reports: None Oncologic (Cancer) History: Reports: None Dermatologic History: Reports: None, Eczema - Infectious Disease History Infectious Disease History: Reports: Chicken Pox - Past Surgical History Head Surgeries/Procedures: Reports: None HEENT Surgical History: Reports: Oral Surgery GI Surgical History: Reports: Cholecystectomy Female Surgical History: Reports: None Social & Family History - Family History Family Medical History: No Pertinent Family History - Tobacco Use Tobacco Use Status *Q: Former Tobacco User Used Tobacco, but Quit: Yes Month/Year Tobacco Last Used: 2019 - Caffeine Use Caffeine Use: Reports: Coffee, Soda Other Caffeine Use: states takes one pop daily for migraines - Alcohol Use Date of Last Drink: 11/16/20 - Recreational Drug Use Recreational Drug Use: No - Living Situation & Occupation Living situation: Reports: with Family ED ROS GENERAL - Review of Systems Review Of Systems: Comprehensive ROS is negative, except as noted in HPI. ED EXAM, GENERAL - Physical Exam Exam: See Below Exam Limited By: No Limitations General Appearance: Alert, No Apparent Distress, Obese Eye Exam: Bilateral Eye: PERRL (upper lids puffy) Ears: Normal External Exam Nose: Normal Inspection Throat/Mouth: Normal Inspection, Normal Gums, Normal Voice Head: Atraumatic, Normocephalic Neck: Thyromegaly (generous right ). No: Limited Range of Motion, Lymphadenopathy (L), Lymphadenopathy (R) Respiratory/Chest: No Respiratory Distress, Lungs Clear Cardiovascular: Regular Rate, Rhythm Back Exam: Full Range of Motion Neurological: Alert, Oriented, Normal Cognition Psychiatric: Anxious, Other (labile) Skin Exam: Warm, Dry, Intact, Normal Color Course - Vital Signs Last Recorded V/S: Last Vital Signs Temp 96.5 F L 02/17/21 21:31 Pulse 110 H 11/21/20 21:31 Resp 21 H 11/21/20 21:31 BP 133/116 H 11/21/20 21:31 Pulse Ox 95 11/21/20 21:31 - Orders/Labs/Meds Labs: Laboratory Tests 11/21/20 11/21/20 11/21/20 Range/Units 21:29 21:58 21:58 WBC 9.3 (5.0-10.0) 10^3/uL RBC 5.32 (4.2-5.4) 10^6/uL Hgb 11.6 L (12.0-16.0) g/dL Hct 37.8 (37.0-47.0) % MCV 71.1 L (80-100) fL MCH 21.8 L (27.0-34.0) pg MCHC 30.7 L (33.0-35.0) g/dL Plt Count 459 H (150-450) 10^3/uL Neut % (Auto) 67.7 (42.2-75.2) % Lymph % (Auto) 24.7 (20.5-50.1) % [place] % (Auto) 7.5 (2-8) % Eos % (Auto) 0.0 L (1.0-3.0) % Baso % (Auto) 0.1 (0.0-1.0) % Sodium 138 (136-145) mmol/L Potassium 3.9 (3.5-5.1) mmol/L Chloride 100 (98-107) mmol/L Carbon Dioxide 24 (21-32) mmol/L Anion Gap 17.9 H (7-13) mEq/L BUN 14 (7-18) mg/dL Creatinine 0.96 (0.55-1.02) mg/dL Est Cr Clr Drug Dosing 85.32 mL/min Estimated GFR (MDRD) > 60 BUN/Creatinine Ratio 14.6 (No establ ref range) Glucose 114 H (74-99) mg/dL POC Glucose 99 (70-105) mg/dl Calcium 8.8 (8.5-10.1) mg/dL Magnesium 2.0 (1.8-2.4) mg/dL Total Bilirubin 0.2 (0.2-1.0) mg/dL AST 10 L (15-37) U/L ALT 22 (14-59) U/L Alkaline Phosphatase 92 (46-116) U/L Total Protein 8.2 (6.4-8.2) g/dL Albumin 3.5 (3.4-5.0) g/dL Globulin 4.7 Albumin/Globulin Ratio 0.7 TSH, Ultra Sensitive 249.33 H (0.36-3.74) uIU/mL - Re-Assessments/Exams Free Text/Narrative Re-Assessment/Exam: DOMINIQUE Gentile [facility]ist, recommend tx to higher care. DOMINIQUE Rendon, Ben. Accepting patient for transfer. Patient refuse initially stating did not have any $$ to get back home. Further review of medication hx. Patient has not obtained RX since April for Levothyroxine, Patient questioned. Admitted to using up prior "stockpile of left over pills. New provider scheduled for "April in [place] to assess thyroid. Patient states, medication not helping. Would not to to GF unless they were going to take thyroid out tonight. Informed patient that very unlikely that would happen, Adamantly refused any further assistance. Primary provider has moved. Did offer patient 2 weeks Rx of medication to establish at least some care. Patient refused, Informed some of risks with hypothyroidism. Refuses to sign AMA form, Left with significant other. Departure - Departure Time of Disposition: 00:25 Disposition: Against Medical Advice 07 Condition: Undetermined Clinical Impression: Medical non-compliance, Morbid obesity Hypothyroidism Qualifiers: Hypothyroidism type: unspecified Qualified Code(s): E03.9 - Hypothyroidism, unspecified - Discharge Information *PRESCRIPTION DRUG MONITORING PROGRAM REVIEWED*: No *COPY OF PRESCRIPTION DRUG MONITORING REPORT IN PATIENT NATASHA: No Forms: ED Department Discharge Sepsis Event Note (ED) - Evaluation Sepsis Screening Result: No Definite Risk - Focused Exam Vital Signs: Vital Signs Temp Pulse Resp BP Pulse Ox 11/21/20 21:31 96.5 F L 110 H 21 H 133/116 H 95
== END 2020-11-22 00:22 | disposition left against medical advice (07) ==
LOC: DL.ED 21:11
DX: E03.9 Hypothyroidism, unspecified (principal); E66.01 Morbid (severe) obesity due to excess calories; J45.909 Unspecified asthma, uncomplicated; Z68.44 Body mass index [BMI] 60.0-69.9, adult; Z88.5 Allergy status to narcotic agent; Z91.040 Latex allergy status; Z91.048 Other nonmedicinal substance allergy status; Z91.14 Patient's other noncompliance with medication regimen; Z87.891 Personal history of nicotine dependence
CPT/HCPCS: 36415; 80053; 82962; 83735; 84443; 85025; 93005; 99283; 99284-25

== ENCOUNTER 2021-11-27 13:43 | Emergency (ER) | payer MEDICAID ==
[2021-11-27 14:01] VITALS: BP 132/82; PULSE 121
[2021-11-27] MEDS ORDERED: Albuterol 6.7 GM Inhaler INH ONE ×2 (14:16→14:17)
[2021-11-27 14:38] LABS: ANION GAP 12.4 mEq/L (7-13); CHLORIDE,CL 103 mmol/L (98-107); SODIUM,NA 138 mmol/L (136-145)
[2021-11-27] MEDS ORDERED: methylPREDNISolone Sodium Succinate 125 MG/2 ML SDV IVPUSH ONE (14:40)
== END 2021-11-27 16:23 | disposition home or self-care (01) ==
LOC: DL.ED 13:43
DX: J45.909 Unspecified asthma, uncomplicated (principal); E03.9 Hypothyroidism, unspecified; E66.9 Obesity, unspecified; Z68.44 Body mass index [BMI] 60.0-69.9, adult; Z88.5 Allergy status to narcotic agent; Z91.040 Latex allergy status; Z91.018 Allergy to other foods; Z91.011 Allergy to milk products; Z91.048 Other nonmedicinal substance allergy status; Z87.891 Personal history of nicotine dependence
CPT/HCPCS: 36415; 71045; 80053; 81025; 83735; 85025; 96374; 99285-25; A9270-GY; J2930

== ENCOUNTER 2022-09-15 12:28 | Emergency (ER) | payer MEDICAID ==
[2022-09-15 12:48] VITALS: PULSE 120
== END 2022-09-15 16:10 | disposition left against medical advice (07) ==
LOC: DL.ED 12:28
DX: Z53.21 Procedure and treatment not carried out due to patient leaving prior to being seen by health care provider (principal)